=== PATIENT | male | born 1990 | race Caucasian/White ===

== ENCOUNTER 2024-03-28 17:18 | Emergency (ER) | payer MEDICAID, SELFPAY ==
[2024-03-28 17:23] VITALS: BP 123/74; PULSE 91; RESP 20; TEMP 37.2; O2SAT 99; BMI 27.4
--- NOTE | 2024-03-28 17:26 | CRLHL7_ITS ---
For Patients: As a result of the Cures Act, medical imaging exams and procedure reports are released immediately into your electronic medical record. You may view this report before your referring provider. If you have questions, please contact your health care provider. INDICATION: Right hand pain and injury COMPARISON: None. TECHNIQUE: Three radiographic view(s) of the right hand. FINDINGS: Acute mildly displaced fracture of the 4th metacarpal head and neck. Old healed fracture of the 3rd metacarpal shaft. No substantial degenerative change. IMPRESSION: Acute mildly displaced fracture of the 4th metacarpal head and neck. Old healed fracture of the 3rd metacarpal shaft. No substantial degenerative change. Dictated by Trevor Kent MD @ 03/28/2024 6:42:38 PM (Electronically Signed)
--- NOTE | 2024-03-28 17:29 | ED_ITS ---
HPI - General Adult General Chief complaint: Extremity Pain/Injury, Upper Stated complaint: pain in rt hand Time Seen by Provider: 03/28/24 17:28 History of Present Illness HPI narrative: Pt was upset today and began punching a cinder/brick wall about 30 mins ago. Struck approx 3 times before realizing extent of injury to Right hand. Right hand is swollen and bleeding. Pt stated multiple times in triage I'm not here seeking medications and just wants treatment of hand injury. 33-year-old man presenting to the emergency department with right hand pain after punching a wall multiple times. It was on the 3rd punch that he realized that he was being foolish. Does have a history of extensive drug use back in 2011, including I believe IV and volunteers number of times during initial interview that is not here for pain medication but just realized he needed the it checked out. He had become upset instead of punching somebody else he decided punched a wall. Apparently witnessing this happening his buddies suggested he was being immature and that he go be evaluated. Related Data Allergies Allergy/AdvReac Type Severity Reaction Status Date / Time Bleach (Sodium Hypochlorite) Allergy Unknown rash Verified 03/31/24 14:53 Review of Systems Status of ROS: Reports: 6 or more systems reviewed and unremarkable except as noted in History and below PFSH PFSH Social History Smoking Status: Current every day smoker What tobacco products do you use: cigarettes Do you use any of these nicotine containing products: Vaping Products How often do you have a drink containing alcohol: never AUDIT-C Alcohol total score: 0 Non-prescribed substance use: former substance user and marijuana (any form) Non-prescribed substance use details: 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 Long braden and numerous tattoos. Favoring his right hand. No other injuries clearly apparent. He has superficial cuts with dried blood over the distal dorsal hand of the 3rd through 5th fingers. No active bleeding at this time. He is tremulous with this hand in discomfort amplified by my palpation. Tender in same areas and appears to have a depression of the head of the 4th metacarpal. Able to move all fingers but clearly painful though reports numbness in his 4th finger but sensation distally Const: Vital Signs, click to edit/add: Vital Signs - 24 hr 03/28/24 17:23 Temperature 98.9 F Pulse Rate [Pulse Oximeter] 91 Respiratory Rate 20 Blood Pressure [Ri ght Upper Arm] 123/74 Pulse Oximetry 99 Oxygen Delivery Me thod Room Air Documenting provider has reviewed patient's vital signs: yes Course Vital Signs Vital signs: Initial Vital Signs Temperature 98.9 F 03/28/24 17:23 Temperature Source Temporal Artery Scan 03/28/24 17:23 Pulse Rate 91 03/28/24 17:23 Respiratory Rate 20 03/28/24 17:23 Blood Pressure 123/74 03/28/24 17:23 Blood Pressure Mean 90 03/28/24 17:23 Blood Pressure Position Sitting 03/28/24 17:23 Pulse Oximetry 99 03/28/24 17:23 Oxygen Delivery Method Room Air 03/28/24 17:23 Vital Signs Temperature 98.9 F 03/28/24 17:23 Pulse Rate 91 03/28/24 17:23 Respiratory Rate 20 03/28/24 17:23 Blood Pressure 123/74 03/28/24 17:23 Pulse Oximetry 99 03/28/24 17:23 Oxygen Delivery Method Room Air 03/28/24 17:23 Temperature 98.9 F 03/28/24 17:23 Pulse Rate 91 03/28/24 17:23 Respiratory Rate 20 03/28/24 17:23 Blood Pressure 123/74 03/28/24 17:23 Pulse Oximetry 99 03/28/24 17:23 Oxygen Delivery Method Room Air 03/28/24 17:23 Medications Administered Medications: Discontinued Medications Generic Name Dose Route Start Last Admin Trade Name Daltonq PRN Reason Stop Dose Admin Acetaminophen 1,000 mg 03/28/24 17:38 03/28/24 17:47 Acetaminophen 500 Mg Tablet PO 03/28/24 17:39 1,000 mg ONCE ONE Administration Ibuprofen 600 mg 03/28/24 17:38 03/28/24 17:47 Ibuprofen 200 Mg Tablet PO 03/28/24 17:39 600 mg ONCE ONE Administration Medical Decision Making MDM Narrative Medical decision making narrative: Lacerations that appear to need repair. I would presume that he has at least a head of 4th metacarpal fracture given depression in the area. X-rays pending. Ibuprofen and acetaminophen given. By my independent review confirming x-ray images of transverse fracture and palmar angulation almost 90? of head of 4th metacarpal. Returned to discuss this with Trevor. Pending call back from Orthopedics for further recommendations whether this might require pinning or whether we should attempt some reduction here. Discussed with orthopedic who would recommend some attempt at reduction anticipate follow-up in clinic for further recommendations. Likely will need pinning for stabilization. With nursing assistance injected bupivacaine through the webspace toward the joint anticipating reduction. Did also inject 1 mL from the dorsal surface in equivalent of a hematoma block. On reassessment excellent anesthesia was achieved. Return to reduce the distal fracture fragment/head of 4th metacarpal by upward pressure from the palmar side. Subsequently fashioned and placed an ulnar gutter splint Mr. Smith tolerated this extremely well. Post reduction x-rays by my independent review shows marked improvement in angulation. Radiology over-read below INDICATION: Post reduction 4th metacarpal fracture TECHNIQUE: Hand radiograph 2 views right COMPARISON: 03/28/2024 FINDINGS: Bone: The fracture of the distal 4th metacarpal has been reduced to anatomic alignment. Remote fracture deformity of the 3rd metacarpal is unchanged. Joint: The carpal and metacarpal-phalangeal joints are unremarkable in appearance. The interphalangeal joints are normal in appearance. Soft tissue: An overlying ulnar splint is noted which limits evaluation of the underlying osseous structures and soft tissues. No radiopaque foreign bodies are seen. IMPRESSION: 1. The fracture of the distal 4th metacarpal has been reduced to anatomic alignment. See patient discharge plan for further discussion Please call on Sunday for an appointment with Orthopedics likely to be seen later in the week. Phone number [phone]. Wear this splint until follow-up evaluation. Elevate for comfort. Sling if necessary. Can take up to 800 mg ibuprofen or up to 1000 mg of acetaminophen per dose. Medical Records Medical records reviewed: Yes I reviewed the patient's medical records Discharge Plan Discharge Clinical Impression: Fx metacarpal neck-closed Patient Disposition: Home w/ Parent or Adult Condition: Improved Additional Instructions: Please call on Sunday for an appointment with Orthopedics likely to be seen later in the week. Phone number [phone]. Wear this splint until follow-up evaluation. Elevate for comfort. Sling if necessary. Can take up to 800 mg ibuprofen or up to 1000 mg of acetaminophen per dose. Follow Up/Referrals: Provider,Not a Local [Primary Care Provider] - Stand Alone Forms: [employer] Info Instructions
[2024-03-28] MEDS: IBUPROFEN 200 MG TABLET 600 MG PO (17:47)
[2024-03-28] MEDS: ACETAMINOPHEN 500 MG TABLET 1000 MG PO (17:47)
--- NOTE | 2024-03-28 18:58 | CRLHL7_ITS ---
For Patients: As a result of the Century Cures Act, medical imaging exams and procedure reports are released immediately into your electronic medical record. You may view this report before your referring provider. If you have questions, please contact your health care provider. INDICATION: Post reduction 4th metacarpal fracture TECHNIQUE: Hand radiograph 2 views right COMPARISON: 03/28/2024 FINDINGS: Bone: The fracture of the distal 4th metacarpal has been reduced to anatomic alignment. Remote fracture deformity of the 3rd metacarpal is unchanged. Joint: The carpal and metacarpal-phalangeal joints are unremarkable in appearance. The interphalangeal joints are normal in appearance. Soft tissue: An overlying ulnar splint is noted which limits evaluation of the underlying osseous structures and soft tissues. No radiopaque foreign bodies are seen. IMPRESSION: 1. The fracture of the distal 4th metacarpal has been reduced to anatomic alignment. Dictated by Mario Way MD @ 03/28/2024 7:30:17 PM Dictated by: Mario Way MD @ 03/28/2024 19:30:19 (Electronically Signed)
== END 2024-03-28 19:16 | disposition home or self-care (01) ==
PROVIDERS: Emergency Provider Family Medicine
DX: S62.334A Displaced fracture of neck of fourth metacarpal bone, right hand, initial encounter for closed fracture (principal); W22.01XA Walked into wall, initial encounter
CPT/HCPCS: 26605; 73120; 73130; 99283; 99284; A9270

== ENCOUNTER 2024-03-31 14:24 | Outpatient (CLI) | payer MEDICAID, SELFPAY ==
--- OUTSIDE RECORDS SUMMARY | 2024-04-04 23:17 | XMS_ITS | Referral Summary ---
Author Organization [facility] Address [address] [place] [address] Care Team Providers Care Health Care Legal Assistant Name Role Phone Unavailable Primary Care Provider Unavailabl e Source Comments Patient records contain information from all sites at [facility]. For routine questions regarding patient records, call [phone] during business hours, M-F 8:00 AM - 5:00 PM Central Time. Record requests for emergency care only can be directed to [phone] at any time.[facility] Encounters Date Type Department Care Team Description [...]
--- OUTSIDE RECORDS SUMMARY | 2024-04-04 23:17 | XMS_ITS | Encounter Summary ---
Author Organization [facility] Address [address] [place] [address] Care Team Providers Care Television Production Assistant Name Role Phone Unavailable Primary Care [...]
--- OUTSIDE RECORDS SUMMARY | 2024-04-04 23:17 | XMS_ITS ---
Author Organization [facility] Address [address] [place] [address] Care Team Providers Care Calibration Checker Name Role Phone Unavailable Unavailable Unavailable Surgery Details Not on file Complications Check Surgery Details section. Procedure Estimated Blood Loss Check Surgery Details section. Procedure Findings Check Surgery Details section. Procedure Specimens Taken Check Surgery Details section.
--- OUTSIDE RECORDS SUMMARY | 2024-04-04 23:17 | XMS_ITS | Clinical Summary ---
Author Organization [facility] Address [address] [place] [address] Care Team Providers Care Head Scorer Name Role Phone Unavailable Primary Care Provider Unavailabl e Source Comments Patient records contain information from all sites at [facility]. For routine questions regarding patient records, call [phone] during business hours, M-F 8:00 AM - 5:00 PM Central Time. Record requests for emergency care only can be directed to [phone] at any time.[facility] Allergies No known active allergies Medications * [...] patient's age to complete this topic Insurance [facility]
== END 2024-03-31 14:25 | disposition home or self-care (01) ==
LOC: AMB 04-04 23:15
PROVIDERS: Visit Provider Emergency Medicine
DX: R45.851 Suicidal ideations (principal); F10.129 Alcohol abuse with intoxication, unspecified; F12.10 Cannabis abuse, uncomplicated
CPT/HCPCS: A0425; A0427

== ENCOUNTER 2024-03-31 14:36 | Emergency (ER) | payer MEDICAID, SELFPAY ==
[2024-03-31 14:42] VITALS: BP 116/69; PULSE 63; RESP 16; TEMP 36.9; O2SAT 96; BMI 27.4
--- NOTE | 2024-03-31 15:30 | ED.NURSE ---
[facility] telehealth in progress.
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
[2024-03-31 15:53] LABS: Appearance Urine Clear (Clear); Bilirubin Urine Negative (Negative); Blood Urine Negative (Negative); Color Urine Yellow (Yellow); Glucose Urine Negative (Negative); Ketones Urine Negative (Negative); Leukocyte Esterase Urine Negative (Negative); Nitrite Urine Negative (Negative); Protein Urine Negative (Negative); Urobilinogen Urine 0.2 (0.2-1.0); pH Urine 5.5 (5.0-8.5)
[2024-03-31 16:01] LABS: RBC Urine 0-2 (0-2); WBC Urine 0-2 (0-5)
[2024-03-31 16:03] LABS: Basophils Absolute Auto 0.05 K/uL (0.00-0.30); Basophils Percent Auto 0.5 % (0.0-3.0); Eosinophils Absolute Auto 0.27 K/uL (0.00-0.50); Eosinophils Percent Auto 2.5 % (0.0-7.0); Hematocrit 42.3 % (37.0-53.0); Hemoglobin* 14.7 gm/dL (13.5-17.5); Immature Granulocytes Abs Auto 0.02 K/uL (0.00-0.30); Immature Granulocytes Pct Auto 0.2 %; Mean Corpuscular HGB Conc 35 gm/dL (32-36); Mean Corpuscular Hemoglobin 31 pg (26-34); Mean Corpuscular Volume 90 fL (80-100); Monocytes Percent Auto 6.7 % (0.0-11.0); Neutrophils Absolute Auto 4.96 K/uL (1.7-7.0); Neutrophils Percent Auto 45.1 % (42.0-72.0); Platelet Count* 292 K/uL (140-440); RDW Coefficient of Variation % 12.6 % (11.5-15.5); Red Blood Count 4.71 m/uL (4.30-5.90); White Blood Count* 10.99 K/uL (4.50-11.00)
[2024-03-31 16:04] LABS: Amphetamine Screen Urine Negative (Negative); Barbiturate Screen Urine Negative (Negative); Benzodiazepines Screen Urine Negative (Negative); Cannabinoid Screen Urine POSITIVE (Negative); Cocaine Screen Urine Negative (Negative); Methadone Screen Urine Negative (Negative); Methamphetamines Screen Urine Negative (Negative); Opiate Screen Urine Negative (Negative); Oxycodone Screen Urine Negative (Negative); Phencyclidine Screen Urine Negative (Negative); Tricyclic Antidepressant Urine Negative (Negative)
[2024-03-31 16:07] LABS: Slide Review Reflex No
[2024-03-31 16:21] LABS: Chloride* 110 mmol/L (96-114); Potassium* 3.8 mmol/L (3.6-5.1); Sodium* 143 mmol/L (135-149)
[2024-03-31 16:23] LABS: Creatinine* 0.8 mg/dL (0.5-1.5); Est. Creatinine Clearance* 127.06; Estimated Glomerular Filt Rate 120 ml/min
[2024-03-31 16:24] LABS: Anion Gap 10 mEq/L (7-15); Blood Urea Nitrogen* 13 mg/dL (5-24); Calcium* 9.2 mg/dL (8.4-10.6); Carbon Dioxide* 23 mmol/L (20-32); Glucose* 98 mg/dL (60-115)
[2024-03-31 16:26] LABS: Acetaminophen* < 10.0 ug/mL (10.0-30.0); Ethanol* 0.16 % (0.01-0.03); Salicylate* < 0.1 mg/dL (1.0-10)
[2024-03-31 16:42] LABS: SARS PCR* Negative SARS-CoV-2 (Negative)
[2024-03-31 17:04] LABS: Thyroid Stimulating Hormone* 0.156 uIU/mL (0.270-4.20)
[2024-03-31] MEDS: OLANZapine 5 MG TAB.RAPDIS PO (19:35)
[2024-03-31 19:36] VITALS: BP 118/73; PULSE 83; RESP 16; TEMP 36.8; O2SAT 98
[2024-04-01 06:00] VITALS: BP 119/79; PULSE 49; RESP 16; O2SAT 97
--- NOTE | 2024-04-01 07:18 | ED.NURSE ---
Patient participating in virtual [facility] assessment.
[2024-04-01 12:54] LABS: Free T4 Free Thyroxine* 1.78 ng/dL (0.70-1.85)
[2024-04-01 13:48] VITALS: BP 118/73; PULSE 58; RESP 19; TEMP 36.9; O2SAT 97
--- NOTE | 2024-04-01 14:35 | ED.NURSE ---
Patient transferring via [facility] to [facility].
== END 2024-04-01 14:37 ==
PROVIDERS: Emergency Medicine; Emergency Provider Family Medicine
DX: F10.129 Alcohol abuse with intoxication, unspecified (principal)
CPT/HCPCS: 36415; 80048; 80143; 80179; 80306; 81001; 82077; 84439; 84443; 85025; 87635; 96372; 99284; 99285; A9270

== ENCOUNTER 2024-04-01 14:29 | Outpatient (CLI) | payer MEDICAID, SELFPAY ==
--- OUTSIDE RECORDS SUMMARY | 2024-04-02 09:39 | XMS_ITS | Referral Summary ---
Author Organization [facility] Address [address] [place] [address] Care Team Providers Care Tire Inspector Name Role Phone Unavailable Primary Care Provider Unavailabl e Source Comments Patient records contain information from all sites at [facility]. For routine questions regarding patient records, call [phone] during business hours, M-F 8:00 AM - 5:00 PM Central Time. Record requests for emergency care only can be directed to [phone] at any time.[facility] Encounters Date Type Department Care Team Description 04/01/2024 Intake [facility] from Last 3 Months Allergies No known active allergies Medications * This document contains information received from the source organization and may not represent a complete record from that organization. No known medications Social History Tobacco Use Types Packs/Day Years Used Date Smoking Tobacco: Never Assessed Nutrition Answer Date Recorded Nutrition: EVOO Fat Source Unknown 10/04 Nutrition: Servings of Fruits/Vegetables per Day Not on file 10/04/2022 Dental Answer Date Recorded Dental: Regular Dentist Unknown 10/05/19 23 Sex and Gender Information Value Date Recorded Sex Assigned at Male 10/11/2022 12:58 PM CDT Legal Sex Male 11:19 AM CDT Gender Identity Male 10/11/2022 12:58 PM CDT Sexual Orientation Straight 10/11/2022 12 :58 PM CDT Plan of Treatment Not on file Insurance [employer]
--- OUTSIDE RECORDS SUMMARY | 2024-04-02 09:39 | XMS_ITS | Clinical Summary ---
Author Organization [facility] Address [address] [place] [address] Care Team Providers Care Supervisor Vat House Name Role Phone Unavailable Primary Care Provider Unavailabl e Source Comments Patient records contain information from all sites at [facility]. For routine questions regarding patient records, call [phone] during business hours, M-F 8:00 AM - 5:00 PM Central Time. Record requests for emergency care only can be directed to [phone] at any time.[facility] Allergies No known active allergies Medications * This document contains information received from the source organization and may not represent a complete record from that organization. No known medications Encounters Date Type Department Care Team Description 04/01/2024 Intake [facility] from Last 3 Months Social History Tobacco Use Types Packs/Day Years Used Date Smoking Tobacco: Never Assessed Nutrition Answer Date Recorded Nutrition: EVOO Fat Source Unknown 10/04 Nutrition: Servings of Fruits/Vegetables per Day Not on file 10/04/2022 Dental Answer Date Recorded Dental: Regular Dentist Unknown 10/05/19 Sex and Gender Information Value Date Recorded Sex Assigned at Male 10/11/2022 12:58 PM CDT Legal Sex Male 11:19 AM CDT Gender Identity Male 10/11/2022 12:58 PM CDT Sexual Orientation Straight 10/11/2022 12 :58 PM CDT Plan of Treatment Health Maintenance Due Date Last Done Comments HIV Screening 1990 Hepatitis C Screening 1990 Depression Screening (Annual PHQ-2) 05/07/2023 HPV Vaccines (2 - 3-dose SCDM series) 06/19/2023 05/22/2023 COVID-19 Vaccine ( season) 2024 Influenza Vaccine (#1) 2024 03/22/2016 DTaP,Tdap,and Td Vaccines (8 - Td or Tdap) 05/22/2026 05/22/2016, 09/03/2007, 01/19/1995, Additional history exists IPV Vaccines Completed 01/19/1995, 02/05, 1990, Additional history exists Hepatitis B Vaccines Completed 09/03/2007, 07/27/1995, 01/19/1995 Pneumococcal vaccine (0-64 years) Aged Out 03/22/2016 No longer eligible based on patient's age to complete this topic Insurance [facility]
--- OUTSIDE RECORDS SUMMARY | 2024-04-02 09:39 | XMS_ITS | Encounter Summary ---
Author Organization [facility] Address [address] [place] [address] Care Team Providers Care Executive Assistant To General Counsel Name Role Phone Unavailable Primary Care Provider Unavailabl e Encounter Details Date Type Department Care Team (Latest Contact Info) Description 04/01/2024 Intake [facility] Social History Tobacco Use Types Packs/Day Years [...] Orientation Straight 10/11/2022 12 :58 PM CDT documented as of this encounter Plan of Treatment Not on file documented as of this encounter Visit Diagnoses Not on filedocumented in this encounter
--- OUTSIDE RECORDS SUMMARY | 2024-04-02 09:39 | XMS_ITS ---
Author Organization [facility] Address [address] [place] [address] Care Team Providers Care Dry Can Tender Name Role Phone Unavailable Unavailable Unavailable Surgery Details Not on file Complications Check Surgery Details section. Procedure Estimated Blood Loss Check Surgery Details section. Procedure Findings Check Surgery Details section. Procedure Specimens Taken Check Surgery Details section.
== END 2024-04-01 14:30 | disposition home or self-care (01) ==
LOC: AMB 04-02 09:38
PROVIDERS: Visit Provider Emergency Medicine
DX: F23 Brief psychotic disorder (principal)
CPT/HCPCS: A0425; A0427

== ENCOUNTER 2024-07-19 20:49 | Emergency (ER) | payer MEDICAID, SELFPAY ==
--- OUTSIDE RECORDS SUMMARY | 2024-07-19 20:52 | XMS_ITS | Clinical Summary ---
Author Organization [facility] Address [address] [place] [address] Care Team Providers Care Analytics Specialist Name Role Phone Unavailable Primary Care Provider Unavailabl e Source Comments You are receiving this document as you are listed as the primary care provider,follow-up provider, or the patient has been referred to you for consultation.This is in compliance with the Medicare andMedicaid EHR Incentive Program,which states Providers who transition their patient to another setting of careor provider of care or refers their patient to another provider of care shouldprovide summary care record for each transition of care or referral. [facility] Allergies Active Allergy Reactions Criticality Noted Date Comments Chlorine Rash 04/01/2024 Medications No known medications Active Problems Problem Noted Date Diagnosed Date Hand injury, right, sequela 04/02/2024 Schizoaffective disorder, bipolar type Social History Tobacco Use Types Packs/Day Years Used Date Smoking Tobacco: Never Assessed [facility] Utilities Answer Date Recorded In the past 12 months has [facility] [employer], gas, oil, or water [employer] threatened to shut off services in your home? Patient declined 04/02/2024 Humiliation, Afraid, Rape, and Kick questionnair e Answer Date Recorded Within the last year, have y ou been afraid of your partner or ex-partner? Patient declined 04/02/2024 Within the last year, have y ou been humiliated or emotionally abused in other ways by your partner or ex-partner? Patient declined 04/02/2024 Within the last year, have y ou been kicked, hit, slapped, or otherwise physically hurt by your partner or ex-partner? Patient declined 04/02/2024 Within the last year, have y ou been raped or forced to have any kind of sexual activity by your partner or ex-partner? Patient declined 04/02/2024 Hunger Vital Sign Answer Date Recorded Within the past 12 months, y ou worried that your food would run out before you got the money to buy more. Patient declined Within the past 12 months, t he food you bought just didn't last and you didn't have money to get more. Patient declined PRAPARE - Transportation Answer Date Re corded In the past 12 months, has l ack of transportation kept you from medical appointments or from getting medications? Patient declined 04/02/2024 In the past 12 months, has l ack of transportation kept you from meetings, work, or from getting things needed for daily living? Patient declined 04/02/2024 Housing Stability Vital Sign Answer Sajan e Recorded In the last 12 months, was t here a time when you were not able to pay the mortgage or rent on time? Patient declined 04/02/20 24 Number of Times Moved in the Last Year Not on fi le 04/02/2024 At any time in the past 12 m [facility], were you homeless or living in a assisted (including now)? Patient declined 04/02/2024 Sex and Gender Information Value Date Recorded Sex Assigned at Not on file Legal Sex Male 12:23 PM BROKE HANDLER Gender Identity Not on file Sexual Orientation Not on file Last Filed Vital Signs Vital Sign Reading Time Taken Comments Blood Pressure 134/64 04/15/2024 8:00 AM BROKE HANDLER Pulse 95 04/15/2024 8:00 AM BROKE HANDLER Temperature 36.5 C (97.7 F) 04/15/2024 8:00 AM BROKE HANDLER Respiratory Rate 18 04/15/2024 8:00 AM BROKE HANDLER Oxygen Saturation 100% 04/15/2024 8:00 AM BROKE HANDLER Inhaled Oxygen Concentration - - Weight 82.3 kg (181 lb 6.4 oz) 04/13/2024 8:00 A M BROKE HANDLER Height 172.7 cm (5' 8) 04/01/2024 5:05 PM BROKE HANDLER Body Mass Index 27.58 04/01/2024 5:05 PM BROKE HANDLER Plan of Treatment Health Maintenance Due Date Last Done Comments Hep C Screening (Preventive Services) 1990 HIV Screening (Preventive Services) 2006 Adult Preventive Visit 2008 HepB (1) 2009 HPV Vaccine (2 - 3-dose SCDM series) 06/19/2023 05/22/2023 COVID-19 Vaccine ( season) 2024 Influenza (#1) 2024 03/22/2016 DTaP/Tdap/Td (8 - Tdap) 05/22/2026 05/22/19 17, 09/03/2007, 01/19/1995, Additional history exists Zoster/Shingles (1 of 2) 2040 Hib Completed 03/02/1992, 05/07, 01/13/1991, Additional history exists IPV (Polio) Completed 01/19/1995, 02/05, 1990, Additional history exists MCV4 Completed 09/03/2007 Pneumococcal Aged Out 03/22/2016 No longer eligi ble based on patient's age to complete this topic HepA Aged Out 04/28/2016, 10/28/2015 No lo nger eligible based on patient's age to complete this topic Meningococcal B Aged Out No longer el igible based on patient's age to complete this topic Insurance [facility] Advance Directives * Full Code (Latest Code Status on File) Date Activated Date Inactivated Comments 04/01/2024 4:17 PM 04/15/2024 5:43 PM
--- OUTSIDE RECORDS SUMMARY | 2024-07-19 20:52 | XMS_ITS | Clinical Summary ---
Author Organization [facility] Address [facility] [place] [address] Care Team Providers Care Psychiatry Resident Name Role Phone Devon Thompson DO Primary Care Provider [phone] Devon Thompson DO Unavailable Anna Craig VOLLEYBALL PLAYER Unavailable [phone] Allergies Active Allergy Reactions Criticality Noted Date Comments Guanfacine Headache 12/15/2021 Sodium Hypochlorite Rash Low 12/15/2021 Medications divalproex sodium extended-releas e (DEPAKOTE ER) 500 MG 24 hr tabletIndicatio ns:Schizoaffect colt disorder, bipolar type (H) Take 4 tablets (2,000 mg) by mouth at bedtime for 30 days 120 tablet 10/18/2023 Active Active Problems Problem Noted Date Diagnosed Date Acute psychosis 10/08/2023 Noemi 04/27/2023 Insomnia due to other mental disorder 04/27/2023 Schizoaffective disorder, bipolar type 2 Hallucinations 12/14/2021 Paranoia 12/14/2021 Generalized anxiety disorder 12/25/2017 Immunizations Name Administration Dates Next Due DTAP (<7y) 01/19/1995, 2,01/13/1991,11/14,1990 HIB(PRP-OMP)(PedvaxHIB) 03/02/1992,05/19,01/13/1991,11/14 HPV9 05/22/2023 Hepatitis A (VAQTA)(ADULT 19+) 04/28/2016,2015 Hepatitis B, Peds (Engerix-B/Recombivax HB) 09/03/2007,07/27/1995,01/19/1995 Historical DTP/aP 01/13/1991,1990,08/14/18 91 Influenza Vaccine >6 months,quad, PF 03/22/2016 MMR (MMRII) 01/19/1995,03/02/1992 Meningococcal ACWY (Menactra ) 09/03/2007 OPV, trivalent, live 01/19/1995,03/02/19 92,1990,08/14 Pneumococcal 23 valent 03/22/2016 TDAP (Adacel,Boostrix) 09/03/2007 TDAP Vaccine (Adacel) 05/22/2016 Varicella (Varivax) 07/27/1995 Family History Relation Status Comments Father Alive Mother Social History Tobacco Use Types Packs/Day Years Used Date Smoking Tobacco: Some Days Cigars Vaping Device Smokeless Tobacco: Former Chew Tobacco Cessation:Ready to Q uit: Not Asked; Counseling Given: Not Answered Comments:Quit cigs a couple years ago, was 1 ppd x4-5 yrs, now vaping Passive Exposure Comments:loon max vape Alcohol Use Standard Drinks/Week Comments No 0 (1 standard drink = 0.6 oz pur e alcohol) PHQ-2 Answer Date Recorded PHQ-2 Score 0 02/15/2022 Adolescent Education Answer Date Record ed Getting School Help Needed Not on file 01/26 Food Insecurity Answer Date Recorded Within the past 12 months, d id you worry that your food would run out before you got money to buy more? No 05/22/2023 Within the past 12 months, d id the food you bought just not last and you didn t have money to get more? No 05/22/2023 Housing Stability Answer Date Recorded Do you have housing? (Housin g is defined as stable permanent housing and does not include staying ouside in a car, in a tent, in an abandoned building, in an overnight assisted, or couch-surfing.) No 05/22/2023 Are you worried about losing your housing? No 05/22/2023 Financial Resource Strain Answer Date R ecorded Within the past 12 months, h ave you or your family members you live with been unable to get utilities (heat, electricity) when it was really needed? No 05/22/2023 Transportation Needs Answer Date Record ed Within the past 12 months, h as lack of transportation kept you from medical appointments, getting your medicines, non-medical meetings or appointments, work, or from getting things that you need? No 05/22/2023 Interpersonal Safety Answer Date Record ed Do you feel physically and e motionally safe where you currently live? Yes 05/22/2023 Within the past 12 months, h ave you been hit, slapped, kicked or otherwise physically hurt by someone? No 05/22/2023 Within the past 12 months, h ave you been humiliated or emotionally abused in other ways by your partner or ex-partner? 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 Gender Identity Not on file Sexual Orientation Not on file Last Filed Vital Signs Vital Sign Reading Time Taken Comments Blood Pressure 117/66 10/18/2023 6:00 AM CDT Pulse 68 10/18/2023 6:00 AM CDT Temperature 36.3 C (97.3 F) 10/18/2023 6:00 AM CDT Respiratory Rate 16 10/18/2023 6:00 AM CDT Oxygen Saturation 97% 10/18/2023 6:00 AM CDT Inhaled Oxygen Concentration - - Weight 80.1 kg (176 lb 8 oz) 10/13/2023 7:00 AM CDT Height 172.7 cm (5' 8) 10/08/2023 3:56 AM CDT Body Mass Index 26.84 10/08/2023 3:56 AM CDT Plan of Treatment Health Maintenance Due Date Last Done Comments ADVANCE CARE PLANNING 1990 ANNUAL REVIEW OF HM ORDERS 1990 YEARLY PREVENTIVE VISIT 1993 Pneumococcal Vaccine: Pediat rics (0 to 5 Years) and At-Risk Patients (6 to 49 Years) (2 of 2 - PCV) 03/22/2017 03/22/2016 HPV IMMUNIZATION (2 - 3-dose SCDM series) 06/19/2023 05/22/2023 COVID-19 Vaccine ( - 2023-2 5 season) 2024 INFLUENZA VACCINE (#1) 2024 03/22/2016 PHQ-2 (once per calendar year) 2024 1 , 02/15/2022, 10/11/2016 NICOTINE/TOBACCO CESSATION COUNSELING Q 1 YR 05/22/2024 05/22/2023 DTAP/TDAP/TD IMMUNIZATION (8 - Td or Tdap) 05/22/2026 05/22/2016, 09/03/2007, 01/19/1995, Additional history exists ZOSTER IMMUNIZATION (1 of 2) 2040 HEPATITIS B IMMUNIZATION Completed 008, 07/27/1995, 01/19/1995 MENINGITIS IMMUNIZATION Completed 09/03/2007 HEPATITIS C SCREENING Completed 10/14/2023 , 10/14/2023, 03/05/2018, Additional history exists HIV SCREENING Completed 10/14/2023, 02/06, 03/05/2018 Procedures Procedure Name Priority Date/Time Associated Diagnosis Comments HIV ANTIGEN ANTIBODY COMBO Routine 10/14/2023 10:42 AM CDT HEPATITIS C SCREEN REFLEX TO HCV RNA QUANT AND GENOTYPE Routine 10/14/2023 10:42 AM CDT from Last 3 Months or Most Recently Relevant to Health Maintenance Results * HIV Antigen Antibody Combo Oliver (10/14/2023 10:42 AM CDT) HIV Antigen Antibody Combo Nonreactive Nonreactive 10/14/2023 6:53 PM CDT [facility] Comment:Negative HIV-1 p24 a ntigen and HIV-1/2 antibody screening test results usually indicate the absence of HIV-1 and HIV-2 infection. However, such negative results do not rule-out acute HIV infection. If acute HIV-1 or HIV-2 infection is suspected, detection of HIV-1 or HIV-2 RNA is recommended. Blood STRUCTURE OF LEFT UPPER LIMB / Unknown Venipuncture / Unknown 10/14/2023 10:42 AM CDT 10/14/2023 10:46 AM CDT us Keren Holloway CNP LAB - BLOOD ORDERABLES Final Re sult [facility] [address] [facility], [address] [id number] * (ABNORMAL) Hepatitis C Screen Reflex to HCV RNA Quant and Genotype (10/14/2023 10:42 AM CDT) Hepatitis C Antibody Reactive( A) Nonreactive 10/14/2023 6:49 PM CDT [facility] Comment: The detection of anti-HCV antibodies indicates a current HCV infection or past infection that has resolved, or false HCV antibody positivity. The CDC recommends that a reactive result should be followed by Nucleic acid testing for HCV RNA. If HCV RNA is detected, that indicates current HCV infection. If HCV RNA is not detected, that indicates either past, resolved HCV infection, or false HCV antibody positivity. Blood STRUCTURE OF LEFT UPPER LIMB / Unknown Venipuncture / Unknown 10/14/2023 10:42 AM CDT 10/14/2023 10:46 AM CDT Keren Holloway [facility] LAB - BLOOD ORDERABLES Final Re sult [facility]ATORY [facility] [address] [facility], [address] [id number] from Last 3 Months or Most Recently Relevant to Health Maintenance Insurance [facility] [place] [address] [facility] PM[facility] Advance Directives For more information, please contact: [phone] * Full Code (Latest Code Status on File) Date Activated Date Inactivated Comments 10/08/2023 3:58 AM 10/18/2023 2:40 PM All basic and advanced life-sustaining interventions are performed as appropriate Question Answer Comments Code status determined by: Discussion with patie nt/ legal decision maker * Full Code Date Activated Date Inactivated Comments 05/01/2023 10:10 AM 05/15/2023 12:03 PM All basic and advanced life-sustaining interventions are performed as appropriate Question Answer Comments Code status determined by: Discussion with patie nt/ legal decision maker * Full Code Date Activated Date Inactivated Comments 04/27/2023 5:50 PM 05/01/2023 10:09 AM All basic and advanced life-sustaining interventions are performed as appropriate Question Answer Comments Code status determined by: Unable to det ermine; FULL CODE until documents or legal decision maker available * Full Code Date Activated Date Inactivated Comments 12/15/2021 12:39 AM 12/27/2021 4:07 PM All basic a nd advanced life-sustaining interventions are performed as appropriate Question Answer Comments Code status determined by: Other (please documen t) Care Teams Psychiatry Resident Relationship Specialty Start Date End Date Devon Thompson DO [address] [id number] PCP - General Family Medicine 02/16/22 Devon Thompson DO [address] [id number] Assigned PCP 02/18/22 Anna Craig CNP [address] [id number] Assigned Heart and Vascular Provider 05/31/23
--- OUTSIDE RECORDS SUMMARY | 2024-07-19 20:52 | XMS_ITS | Clinical Summary ---
Author Organization [facility] Address [address] [place] [address] Care Team Providers Care Nurse'S Companion Name Role Phone Unavailable Primary Care Provider Unavailabl e Source Comments Patient records contain information from all sites at [facility]. For routine questions regarding patient records, call [phone] during business hours, M-F 8:00 AM - 5:00 PM Central Time. Record requests for emergency care only can be directed to [phone] at any time.[facility] Allergies No known active allergies Medications [...] HIV Screening 1990 Hepatitis C Screening 1990 HPV Vaccines (2 - 3-dose SCDM series) 06/19/2023 05/22/2023 COVID-19 Vaccine ( season) 2024 Influenza Vaccine (#1) 2024 03/22/2016 Depression Screening (Annual PHQ-2) 05/07/2024 DTaP,Tdap,and Td Vaccines (8 - Td or Tdap) 05/22/2026 05/22/2016, 09/03/2007, 01/19/1995, Additional history exists IPV Vaccines Completed 01/19/1995, 02/05, 1990, Additional history exists Hepatitis B Vaccines Completed 09/03/2007, 07/27/1995, 01/19/1995 Pneumococcal vaccine (0-49 years) Aged Out 03/22/2016 No longer eligible based on patient's age to complete this topic Hepatitis B Screening Discontinued 03/05/2018 Insurance [facility]
--- OUTSIDE RECORDS SUMMARY | 2024-07-19 20:52 | XMS_ITS | Encounter Summary ---
Author Organization [facility] Address [address] [place] [address] Care Team Providers Care Motor Vehicle Clerk Name Role Phone Fidel Trivedi DO Unavailable + [phone] Fidel Trivedi DO Unavailable [phone] No Ref-Primary, Physician Primary Care Provider Devon Thompson DO Primary Care Provider [phone] Devon Thompson DO Unavailable Anna Craig SPINNING MACHINE TENDER Unavailable [phone] Encounter Details Date Type Department Care Team (Late st Contact Info) Description 01/29/[address] [place] [id number] John Alexis MD [address] [place] [address] Social History Tobacco Use Types Packs/Day Years Used Date Smoking Tobacco: Never Assessed Sex and Gender Information Value Date Recorded Sex Assigned at Not on file Legal Sex Male 1:21 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 Gender Identity Not on file Sexual Orientation Not on file documented as of this encounter Plan of Treatment Not on file documented as of this encounter Visit Diagnoses Not on filedocumented in this encounter Care Teams Motor Vehicle Clerk Relationship Specialty Start Date End Date Fidel Trivedi DO [address] [facility] [address] [id number] PCP - Assigned PCP 09/21/16 07/09/18 No Ref-Primary, Physician PCP - General 12/14/21 02/15/22 Devon Thompson DO [address] [address] PCP - General Family Medicine 02/16/22 Fidel Trivedi DO [address] [facility] [address] [address] Assigned PCP 09/21/16 10/18/19 Devon Thompson DO [address] [id number] Assigned PCP 02/18/22 Anna Craig CNP [address] [id number] Assigned Heart and Vascular Provider 05/31/23 documented as of this encounter
--- OUTSIDE RECORDS SUMMARY | 2024-07-19 20:52 | XMS_ITS | Encounter Summary ---
Author Organization [facility] Address [address] [place] [address] Care Team Providers Care Flask Fitter Name Role Phone Unavailable Primary Care Provider [...]
[2024-07-19 21:02] VITALS: BP 170/90; PULSE 83; RESP 18; TEMP 36.1; O2SAT 96; BMI 29.1
--- NOTE | 2024-07-19 22:32 | ED_ITS ---
HPI - Back Pain/Injury General Time Seen by Provider: 22:32 Date Seen: 07/19/24 Chief Complaint: Back Injury/Pain Stated Complaint: Left middle back Time Seen by Provider: 07/19/24 22:31 Source: patient and RN notes reviewed Mode of arrival: ambulatory Limitations: no limitations History of Present Illness HPI Narrative: This 34-year-old male is coming in with left sided lower thoracic back pain that has been bothering him for about 3 weeks. He has tried ibuprofen, he has tried different patches and creams that her nlol-vjo-wmnxavj. He is physically active, does go to the gym and swims, plays handball. He is active with his kids. 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 He is unaware of any injury. 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 He has not had any back pain in this area before. Occasionally he will note pain in the left back in the area with deep breathing. No fevers chills, no cough. He states he has had people trying massaged tried pressure, nothing has made it worse but nothing has really helped. He has not done any chiropractic work. Related Data Allergies Allergy/AdvReac Type Severity Reaction Status Date / Time Bleach (Sodium Hypochlorite) Allergy Unknown rash Verified 03/31/24 14:53 Review of Systems Narrative: As per HPI. 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 He is lying on the bed, gets up easily and stands up on the bed, is able to point to his left lower thoracic area along the spine where he feels this pain. He has no midline tenderness over his spine, there is some generalized discomfort but no true point tenderness in the left lower thoracic paraspinous area. I feel no palpable changes such as a mass or any changes over the ribs in this area. There is no rash noted. The lungs are clear, good air entry, no wheezing or crackles. CV regular rate and rhythm, no murmur, normal S1-S2, no S3-S4. He has good muscle tone of his pectoralis and arms, neurovascular is intact. Documenting provider has reviewed patient's vital signs: yes Course Course ED Course: Patient and I discussed obtaining chest x-ray just to rule out any lung parenchyma issues, can look at thoracic spine x-rays. He understands that we do not do emergent MRI imaging nor can we at this time for issues of this nature. We discussed that this will look at the bones but does not necessarily look at ligaments or cartilage. He wanted to know if we would see cartilage on x-ray imaging. Did review with him that we do not see cartilage but you can estimate or have an idea if there is degenerative changes by loss of intervertebral disc space if seen. He is in agreement with this plan. Will look at this imaging and see if I can help come up with some recommendations for him. Reevaluation(s) Time of Reevaluation #1: 00:40 Reevaluation #1: Betty in I reviewed his x-rays, did show him pictures. Have offered Toradol and muscle relaxant, he declines this. He states he really wants to try to do this without medication and naturally. We did discuss chiropractor, he could consider that. Offered him a referral to physical therapy but he states he is going to be busy, it will likely be difficult for him to do. He will be leaving in August. He will consider it if symptoms continue and look into it once he is stationed at his next employment. He admitted that he actually quit his medical marijuana because his new job would not allow it, he notes that is when this symptoms started. We discussed exercise is very important for are musculoskeletal health. He is going to continue to try that. Also reviewed trying ice. Vital Signs Vital signs: Initial Vital Signs Temperature 97.0 F L 07/19/24 21:02 Temperature Source Temporal Artery Scan 07/19/24 21:02 Pulse Rate 83 07/19/24 21:02 Pulse Rhythm Regular 07/19/24 21:02 Respiratory Rate 18 07/19/24 21:02 Blood Pressure 170/90 H 07/19/24 21:02 Blood Pressure Mean 116 H 07/19/24 21:02 Blood Pressure Position Sitting 07/19/24 21:02 Pulse Oximetry 96 07/19/24 21:02 Oxygen Delivery Method Room Air 07/19/24 21:02 Vital Signs Temperature 97.0 F L 07/19/24 21:02 Pulse Rate 83 07/19/24 21:02 Respiratory Rate 18 07/19/24 21:02 Blood Pressure 170/90 H 07/19/24 21:02 Pulse Oximetry 96 07/19/24 21:02 Oxygen Delivery Method Room Air 07/19/24 21:02 Temperature 97.0 F L 07/19/24 21:02 Pulse Rate 83 07/19/24 21:02 Respiratory Rate 18 07/19/24 21:02 Blood Pressure 170/90 H 07/19/24 21:02 Pulse Oximetry 96 07/19/24 21:02 Oxygen Delivery Method Room Air 07/19/24 21:02 MDM - Back Pain/Injury Imaging Data Chest x-ray: Attestation: I have reviewed the pertinent imaging results. Radiologist's impression: Patient: BETTY SINGER Facility:?[facility] Patient ID:?[id number] Site Patient ID:?[id number]. Site :?1990 Study:?XRay-Chest 2V-07/19/2024 11:51:46 PM Ordering Physician:?Zay Slaughter Final Report: INDICATION: Chest pain. TECHNIQUE: Chest 2 views. COMPARISON: None. FINDINGS: Cardiovascular and mediastinum: Heart size and vasculature are normal in caliber and appearance. Lungs and pleural spaces: Lungs are clear. No sign of infiltrate or mass. No sign of pleural effusion. No pneumothorax. Bones and soft tissues: No significant findings. IMPRESSION: No acute cardiopulmonary abnormality. Dictated by Noah Acuña MD @ 07/20/2024 12:33:22 AM (Electronic Signature) XR thoracic spine: Attestation: I have reviewed the pertinent imaging results. Radiologist's impression: Patient: BETTY SINGER Facility:?[facility] Patient ID:?[id number] Site Patient ID:?[id number]. Site :?1990 Study:?XRay-Spine Thoracic 2V-07/19/2024 11:52:01 PM Ordering Physician:?Zay Slaughter Final Report: INDICATION: Back pain. TECHNIQUE: Thoracic spine 2 views. COMPARISON: None. FINDINGS: Bones: Alignment is normal. Vertebral body heights are maintained. No acute displaced fracture. Joints: Disc spaces and facets are unremarkable. Soft tissues: Unremarkable. IMPRESSION: Unremarkable thoracic spine. Dictated by Noah Acuña MD @ 07/20/2024 12:33:57 AM (Electronic Signature) Discharge Plan Discharge Clinical Impression: Acute left-sided thoracic back pain Patient Disposition: Home, Self-Care Condition: Stable Instructions: Thoracic Pain (ED), Core Strengthening Exercises (ED) Additional Instructions: Certainly can try Tylenol 1000 mg 3 times a day and ibuprofen per bottle directions as needed for pain control. Recommend trying ice on this area of your back and see if it helps. Can consider physical therapy, chiropractic evaluation. Do recommend doing back exercises and core strengthening. If your symptoms are not improving, feel they are worsening, do recommend re-evaluation in certainly would recommend following through with physical therapy. Activity Level: Activity as Tolerated Follow Up/Referrals: Provider,Not a Local [Primary Care Provider] - Stand Alone Forms: [email or web address] Info Instructions
--- NOTE | 2024-07-19 22:46 | CRLHL7_ITS ---
For Patients: As a result of the Century Cures Act, medical imaging exams and procedure reports are released immediately into your electronic medical record. You may view this report before your referring provider. If you have questions, please contact your health care provider. INDICATION: Chest pain. TECHNIQUE: Chest 2 views. COMPARISON: None. FINDINGS: Cardiovascular and mediastinum: Heart size and vasculature are normal in caliber and appearance. Lungs and pleural spaces: Lungs are clear. No sign of infiltrate or mass. No sign of pleural effusion. No pneumothorax. Bones and soft tissues: No significant findings. IMPRESSION: No acute cardiopulmonary abnormality. Dictated by Noah Acuña MD @ 07/20/2024 12:33:22 AM (Electronically Signed)
--- NOTE | 2024-07-19 22:46 | CRLHL7_ITS ---
For Patients: As a result of the Century Cures Act, medical imaging exams and procedure reports are released immediately into your electronic medical record. You may view this report before your referring provider. If you have questions, please contact your health care provider. INDICATION: Back pain. TECHNIQUE: Thoracic spine 2 views. COMPARISON: None. FINDINGS: Bones: Alignment is normal. Vertebral body heights are maintained. No acute displaced fracture. Joints: Disc spaces and facets are unremarkable. Soft tissues: Unremarkable. IMPRESSION: Unremarkable thoracic spine. Dictated by Noah Acuña MD @ 07/20/2024 12:33:57 AM (Electronically Signed)
--- OUTSIDE RECORDS SUMMARY | 2024-07-19 23:15 | XMS_ITS | Clinical Summary ---
Author Organization [facility] Address [address] [place] [address] Care Team Providers Care Doweling Machine Operator Name Role Phone Unavailable Primary Care Provider Unavailabl e Source Comments Patient records contain information from all sites at [facility]. For routine questions regarding patient records, call [phone] during business hours, M-F 8:00 AM - 5:00 PM Central Time. Record requests for emergency care only can be directed to [phone] at any time.[facility] Allergies No known active allergies Medications * [...] topic Hepatitis B Screening Discontinued 03/05/2018 Insurance [facility]
--- OUTSIDE RECORDS SUMMARY | 2024-07-19 23:15 | XMS_ITS | Encounter Summary ---
Author Organization [facility] Address [address] [place] [address] Care Team Providers Care Opener Verifier Packer Customs Name Role Phone Unavailable Primary Care Provider [...]
--- OUTSIDE RECORDS SUMMARY | 2024-07-19 23:15 | XMS_ITS | Clinical Summary ---
Author Organization [facility] Address [address] [place] [address] Care Team Providers Care Military Administrative Technician Name Role Phone Unavailable Primary Care Provider [...] for each transition of care or referral. [facility] Allergies Active Allergy Reactions Criticality Noted Date Comments Chlorine Rash 04/01/2024 Medications No known medications Active Problems Problem Noted Date Diagnosed Date Hand injury, right, sequela 04/02/2024 Schizoaffective disorder, bipolar type Social History Tobacco Use Types Packs/Day Years Used Date Smoking Tobacco: Never Assessed [facility] Utilities Answer Date Recorded In the past [address] [facility] [employer], gas, oil, or water [employer] threatened to shut off services in your [...] any time in the past 12 m [facility], were you homeless or living in a alf (including now)? 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 Gender Identity Not on file Sexual Orientation Not on file Last Filed Vital Signs Vital Sign Reading Time Taken Comments Blood Pressure 134/64 04/15/2024 8:00 AM HAIRPIECE STYLIST Pulse 95 04/15/2024 8:00 AM HAIRPIECE STYLIST Temperature 36.5 C (97.7 F) 04/15/2024 8:00 AM HAIRPIECE STYLIST Respiratory Rate 18 04/15/2024 8:00 AM HAIRPIECE STYLIST Oxygen Saturation 100% 04/15/2024 8:00 AM HAIRPIECE STYLIST Inhaled Oxygen Concentration - - Weight 82.3 kg (181 lb 6.4 oz) 04/13/2024 8:00 A M HAIRPIECE STYLIST Height 172.7 cm (5' 8) 04/01/2024 5:05 PM HAIRPIECE STYLIST Body Mass Index 27.58 04/01/2024 5:05 PM HAIRPIECE STYLIST Plan of Treatment Health Maintenance Due Date [...] patient's age to complete this topic Insurance [facility] Advance Directives * Full Code (Latest Code Status on File) Date Activated Date Inactivated Comments 04/01/2024 4:17 PM 04/15/2024 5:43 PM
--- OUTSIDE RECORDS SUMMARY | 2024-07-19 23:15 | XMS_ITS | Clinical Summary ---
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 Gender Identity Not on file Sexual Orientation [...] Maintenance Results * HIV Antigen Antibody Combo Esmeralda (10/14/2023 10:42 AM CDT) HIV Antigen Antibody [...] BLOOD ORDERABLES Final Re sult [facility] [address] [facility], [address] [id number] * (ABNORMAL) Hepatitis C Screen Reflex to [...] CDT 10/14/2023 10:46 AM CDT Keren Holloway [facility] - BLOOD ORDERABLES Final Re sult [facility] [address] [facility], [address] [id number] from Last 3 Months or Most Recently Relevant to Health Maintenance Insurance [facility] [place] [address] [employer] [facility] PMAP Advance Directives For more information, please contact: [phone] * Full Code (Latest Code Status on [...] by: Other (please documen t) Care Teams Blocking Machine Operator Second Relationship Specialty Start Date End Date Devon Thompson DO [address] [id number] PCP - General Family Medicine 02/16/22 Devon Thompson DO [address] [id number] Assigned PCP 02/18/22 Anna Craig CNP [address] [id number] Assigned Heart and Vascular Provider 05/31/23
--- OUTSIDE RECORDS SUMMARY | 2024-07-19 23:15 | XMS_ITS | Encounter Summary ---
Author Organization [facility] Address [address] [place] [address] Care Team Providers Care Lead Rider Name Role Phone Fidel Trivedi DO Unavailable + [phone] Fidel Trivedi DO Unavailable [phone] No Ref-Primary, Physician Primary Care Provider Devon Thompson DO Primary Care Provider [phone] Devon Thompson DO Unavailable Anna Craig PUNCHBOARD INSERTER Unavailable [phone] Encounter Details Date Type Department Care Team (Late st Contact Info) Description 01/29/[address] [place] [id number] John Alexis MD [address] [place] [address] Social History Tobacco Use Types Packs/Day Years Used Date Smoking Tobacco: Never Assessed Sex and Gender Information Value Date Recorded Sex Assigned at Not on file Legal Sex Male 1:21 AM 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 TEMPERER Gender Identity Not on file Sexual Orientation Not on file documented as of this encounter Plan of Treatment Not on file documented as of this encounter Visit Diagnoses Not on filedocumented in this encounter Care Teams Lead Rider Relationship Specialty Start Date End Date Fidel Trivedi DO [address] [facility] [address] [id number] PCP - Assigned PCP 09/21/16 07/09/18 No Ref-Primary, Physician PCP - General 12/14/21 02/15/22 Devon Thompson DO [address] [id number] PCP - General Family Medicine 02/16/22 Fidel Trivedi DO [address] [facility] [place] [place] [address] Assigned PCP 09/21/16 10/18/19 Devon Thompson DO [address] [id number] Assigned PCP 02/18/22 Anna Craig CNP [address] [id number] Assigned Heart and Vascular Provider 05/31/23 documented as of this encounter
== END 2024-07-20 00:51 | disposition home or self-care (01) ==
PROVIDERS: Emergency Provider Family Medicine
DX: M54.6 Pain in thoracic spine (principal)
CPT/HCPCS: 71046; 72070; 99283; 99284

== ENCOUNTER 2025-05-06 20:11 | Emergency (ER) | payer MEDICAID, SELFPAY ==
--- OUTSIDE RECORDS SUMMARY | 2025-04-01 17:00 | XMS_ITS | Encounter Summary ---
Author Organization [facility] Address [address] [address] Phone Care Team Providers Care Cotton Picker Name Role Phone Elsewhere, Pcp Primary Care Provider Unavailabl e Reason for Visit * ReasonCommentsOtherPt reporting L chest pain @ rest, SOB, feeling his blood is not circulating properly. Reports feeling like this previously.Started about 45 min ago while walking. Has a history of cardiac issues. Missed appointment this morning Encounter Details DateTypeDepartmentCare Team (Latest Contact Info)Svadllxscdd88/26/2025 5:[address] [facility] [address] [place] [address] Olivia Blum PA-C [address] [place] [address] Chest pain, unspecified type (Primary Dx) Social History Tobacco UseTypesPacks/DayYears UsedDateSmoking Tobacco: Every DayCigarettes Smokeless Tobacco: Never Tobacco Cessation:Ready to Q uit: Not Asked; Counseling Given: Not Answered Alcohol UseStandard Drinks/WeekCommentsYes0 (1 standard drink = 0.6 oz pure alcohol)occasionalAUDIT-CAnswerDate RecordedQ1: How often do you have a drink containing alcohol?Monthly or less04/03/2025Q2: How many drinks containing alcohol do you have on a typical day when you are drinking?1 or Q3: How often do you have six or more drinks on one occasion?Less than monthly 04/03/2025Hunger Vital SignAnswerDate RecordedWithin the past 12 months, you worried that your food would run out before you got the money to buymore.Often true04/03/2025Within the past 12 months, the food you bought just didn't last and you didn't have money to get more.Often true04/03/2025PRAPARE - TransportationAnswerDate RecordedIn the past 12 months, has lack of transportation kept you from medical appointments or from getting medications? Yes04/03/2025In the past 12 months, has lack of transportation kept you from meetings, work, or from getting things needed for daily living?Yes04/03/2025 Housing Stability Vital SignAnswerDate RecordedIn the last 12 months, was there a time when you were not able to pay the mortgage or rent on time?No04/03/2025In the past 12 months, how many times have you moved where you were living?5 04/03/2025t any time in the past 12 months, were you homeless or living in a nursing home (including now)?Yes04/03/2025HC UtilitiesAnswerDate RecordedIn the past 12 months has the electric, gas, oil, or water [employer] threatened to shut off services in your home?No04/03/2025EH IP Custom IPVAnswerDate RecordedDo you feel UNSAFE in any of your personal relationships with your family members or any other acquaintances?Yes04/03/2025Sex and Gender InformationValueDate RecordedSex Assigned at LmrfhFatn67/27/2022 10:07 PM CDTLegal PfbKnlh4506/16/2012 2:00 AM PEDIATRIC DERMATOLOGIST Gender MsywtjwmQnda13/27/2022 10:07 PM CDTSexual KxurbyklzftWjkonluj70/14/2025 4:12 PM CSTdocumented as of this encounter Last Filed Vital Signs Vital SignReadingTime TakenCommentsBlood Vrfrvrfp030/7304/01/2025 5:35 PM PEDIATRIC DERMATOLOGIST Dptcd139104/01/2025 5:35 PM VRZNjlxglezroo71.1 ??C (98.7 ??F)04/01/2025 5:08 PM CSTRespiratory Qadm9876 5:35 PM CSTOxygen Gfvsfaoqbi33%04/01/2025 5:35 PM CSTInhaled Oxygen Concentration--Weight--Height--Body Mass Index--documented in this encounter Functional Status * Patient's Vision Adequate to Safely Complete Daily ActivitiesAnswerDate of HiqpmtpfbjJajunxSux46/11/2025 1:15 PM Angelina Naidu RN * Patient's Memory Adequate to Safely Complete Daily ActivitiesAnswerDate of RsbragtogeLemdlsHjk58/11/2025 1:15 PM Angelina Naidu RN documented as of this encounter Mental Status * Patient's Judgment Adequate to Safely Complete Daily ActivitiesAnswerEntry VzvhKhlqpmQrt33/11/2025 1:15 PM Angelina Naidu RN documented in this encounter Plan of Treatment Not on file documented as of this encounter Procedures Procedure NamePriorityDate/TimeAssociated DiagnosisCommentsECG 12 LEAD, TRACING ULMLTbxrgzq16/26/2025 6:09 PM PEDIATRIC DERMATOLOGIST Chest pain, unspecified type documented in this encounter Results * EKG AMBULATORY (04/01/2025 6:09 PM PEDIATRIC DERMATOLOGIST)ComponentValueRef RangeTest Method Analysis TimePerformed AtPathologist SignatureVentricular Gvvn547KJWKFMZArrmgz Tept461XGPQIGZS-V Vmjawdcn298zvLCWZUXU Xdwltbqe32ltHUBJYK900qlBBSXJOv565nmROWU P Qfsk81ezlmkpcHYYLL Boom72vpcouzpEYRFI Ldjr17foqhbpbSPXMPfphiblh (Source) Anatomical Location / LateralityCollection Method / VolumeCollection Time Received Time04/01/2025 6:09 PM PEDIATRIC DERMATOLOGIST Narrative MUSE - 04/01/2025 8:37 PM PEDIATRIC DERMATOLOGIST Confirming Doc Gareth Carrion Sinus tachycardia Right atrial enlargement Prolonged QT Abnormal ECG When compared with ECG of 17-Mar-2025 02:28, No significant change was found Procedure Note Gareth Carrion MD - 04/01/2025 Confirming Doc Gareth Carrion Sinus tachycardia Right atrial enlargement Prolonged QT Abnormal ECG When compared with ECG of 17-Mar-2025 02:28, No significant change was found Authorizing ProviderResult TypeResult StatusNicol Eri LOCKE-LES NON-INVASIVE CARDIOLOGYFinal ResultPerforming OrganizationAddressCity/State/ZIP CodePhone Number MUSE documented in this encounter Visit Diagnoses Diagnosis Chest pain, unspecified type- Primary documented in this encounter Care Teams Team MemberRelationshipSpecialtyStart DateEnd Date Elsewhere, Pcp PCP - General07/18/01documented as of this encounter
--- OUTSIDE RECORDS SUMMARY | 2025-04-01 18:08 | XMS_ITS | Encounter Summary ---
Author Organization [facility] Address [address] [place] [id number] Phone Care Team Providers Care Senior Maintenance Technician Name Role Phone Elsewhere, Pcp Primary Care Provider Unavailabl e Reason for Visit * ReasonCommentsChest Pain Encounter Details DateTypeDepartmentCare Team (Latest Contact Info)Fcucitxoqhg09/26/2025 6:08 PM WELDING SUPERVISOR - 04/01/2025 8:08 PM CSTEmer[facility] [address] [place] [phone] Gary Alvarado MD [address] [place] [id number] Chest pain on exertion (Primary Dx); Hx of myocarditis; Elevated brain natriuretic peptide (BNP) level; Marijuana use; Bronchitis Discharge Disposition: Home and/or Self Care Social History Tobacco UseTypesPacks/DayYears UsedDateSmoking Tobacco: Every DayCigarettes Smokeless Tobacco: NeverAlcohol UseStandard Drinks/WeekCommentsYes0 (1 standard drink = 0.6 oz pure alcohol)occasionalAUDIT-CAnswerDate RecordedQ1: How often do you have a drink containing alcohol?Monthly or less03/15/2025Q2: How many drinks containing alcohol do you have on a typical day when you are drinking?1 or 2 03/15/2025Q3: How often do you have six or more drinks on one occasion?Never 03/15/2025Hunger Vital SignAnswerDate RecordedWithin the past 12 months, you worried that your food would run out before you got the money to buymore.Patient xabrpyqr78/11/2025Within the past 12 months, the food you bought just didn't last and you didn't have money to get more.Patient arogoacu61/11/2025PRAPARE - TransportationAnswerDate RecordedIn the past 12 months, has lack of transportation kept you from medical appointments or from getting medications? Patient abgpnlsw34/11/2025In the past 12 months, has lack of transportation kept you from meetings, work, or from getting things needed for daily living?Patient wnxsniqc98/11/2025Housing Stability Vital SignAnswerDate RecordedIn the last 12 months, was there a time when you were not able to pay the mortgage or rent on time?Patient fusgyvny06/11/2025In the past 12 months, how many times have you moved where you were living?t any time in the past 12 months, were you homeless or living in a assisted (including now)?Patient yzchueyf13/11/2025 [facility] UtilitiesAnswerDate RecordedIn the past 12 months has the [employer], gas, oil, or water [employer] threatened to shut off services in your home?Patient nggygdyq98/11/2025EH IP Custom IPVAnswerDate RecordedDo you feel UNSAFE in any of your personal relationships with your family members or any other acqua intances?No04/02/2025Sex and Gender InformationValueDate RecordedSex Assigned at HkmneSffq39/27/2022 10:07 PM CDTLegal FrvCpmo5606/16/2012 2:00 AM CSTGender DbcoldipNibf54/27/2022 10:07 PM CDTSexual NnphplljgayUvstoobw15/14/2025 4:12 PM CSTdocumented as of this encounter Last Filed Vital Signs Vital SignReadingTime TakenCommentsBlood Ktixhlks000/6904/01/2025 7:45 PM WELDING SUPERVISOR Zbynk314204/01/2025 8:00 PM PCUVclftjqrduj48 ??C (98.6 ??F)04/01/2025 6:14 PM WELDING SUPERVISOR Respiratory Djpg284706/01/2024 8:00 PM CSTOxygen Hybyapgdjm54%04/01/2025 7:55 PM CSTInhaled Oxygen Concentration--Pwhxpb76.2 kg (190 lb)04/01/2025 6:12 PM WELDING SUPERVISOR Height--Body Mass Index28.8903/17/2025 12:53 PM CSTdocumented in this encounter Functional Status * Patient's Vision Adequate to Safely Complete Daily ActivitiesAnswerDate of GkobvnmpyfRalfgrBov91/11/2025 1:15 PM Angelina Naidu RN * Patient's Memory Adequate to Safely Complete Daily ActivitiesAnswerDate of EigqqgxvbkZeoubeFoy27/11/2025 1:15 PM Angelina Naidu RN documented as of this encounter Mental Status * Patient's Judgment Adequate to Safely Complete Daily ActivitiesAnswerEntry EupiLfglyvWxs77/11/2025 1:15 PM Angelina Naidu RN documented in this encounter Ordered Prescriptions PrescriptionSigDispense QuantityRefillsLast FilledStart DateEnd Date azithromycin (Zithromax) 250 MG tablet Take 1 tablet daily for the next 4 days 4 Tablet dextromethorphan-guaifenesin (Robitussin-DM) 10-100 MG/5ML syrup Take 10 mL by mouth every four hours as needed for Cough. 240 mL albuterol HFA (Proair HFA, Ventolin HFA) 108 (90 Base) MCG/ACT inhalation aerosol Inhale 2 Puffs into the lungs every four hours as needed for Wheezing, Shortness of Breath or Coughfor up to 28 days. Shake before using. 8 g ibuprofen (Motrin) 600 MG tablet Take 1 Tablet by mouth four times a day as needed for Pain. Administer with food. 40 Tablet documented in this encounter Discharge Disposition DispositionCodeDeparture MeansDestinationHome and/or Self CareHomedocumented in this encounter ED Notes * Gary Alvarado MD - 04/01/2025 6:16 PM CST Images from the original note were not included. Patient: Trevor Simth Means of Arrival: Chief Complaint: Chest Pain History of Present Illness: HPI Trevor Smith is a 34 year old male with PMH of schizoaffective disorder (bipolar type), KEIRA, insomnia, polysubstance abuse. Patient has a social history of homelessness. Patient presents to the [facility] ED via EMS with chief complaint of chest pain and shortness of breath with activity. He states has been coughing up some brown sputum. He denies significant nasal congestion or rhinorrhea. Patient was given aspirin 324 mg and nitroglycerin 0.4 mg by EMS. Patient most recently admitted to [facility] 03/17/2025 through 03/19/2025. He had presented for evaluation of chest pain and was found to have a mild troponin elevation. His ECG showed no evidence of acute ischemia. TTE showed no acute abnormalities. CTA coronary arteries showed patent coronary arteries and a structurally normal heart. CT cardiac extracardiac structure showed no incidental findings. MR cardiac function with viability showed no regional wall abnormalities. Normal LV normalwall thickness, global systolic function normal and EF 58%. Right ventricle was normal in cavity size, wall thickness and systolic function. Delayed enhancement imaging demonstrates no evidence of minoo cardial infarction or infiltrative disease. There was an increased T1 value in the inferior wall suggesting myocarditis. UDS was positive for THC and amphetamines. Patient acknowledged using marijuana but denied any knowledge of amphetamine consumption. He was evaluated by cardiology who recommended NSAIDs (ibuprofen) as needed for chest pain. [facility] Review of Systems Constitutional: Positive for fatigue. Negative for chills and fever. HENT: Negative for congestion and sore throat. Respiratory: Positive for cough, chest tightness and shortness of breath. Cardiovascular: Positive for chest pain. Negative for leg swelling. Gastrointestinal: Negative. Allergic/Immunologic: Negative for immunocompromised state. Neurological: Negative. Hematological: Does not bruise/bleed easily. No Known Allergies Prior to Admission Medication List ibuprofen (Motrin) 600 MG tablet Take 1 Tablet by mouth every six hours as needed for Pain. Administer with food. Past Medical History: Past Medical History[1] Past Surgical History: Past Surgical History[2] Family History: Family History[3] Social History: Social History[4] Exam: Initial Vitals Most Recent Vitals Temp: 37 ??C (98.6 ??F) (04/01/251813) Temp: 37 ??C (98.6 ??F) (04/01/251813) Pulse: 99 (04/01/251811) Pulse: 91 (04/01/251944) Resp: 18 (04/01/251811) Resp: 15 (04/01/251944) BP: 127/84 (04/01/251811) BP: 122/69 (04/01/251944) SpO2: 96 % (04/01/251811) SpO2: 95 % (04/01/251944) Weight: 86.2 kg (190 lb) (04/01/251811) Physical Exam: Physical Exam Constitutional: General: He is not in acute distress. Appearance: He is not ill-appearing or diaphoretic. Eyes: Extraocular Movements: Extraocular movements intact. Pupils: Pupils are equal, round, and reactive to light. Neck: Vascular: No JVD. Cardiovascular: Rate and Rhythm: Normal rate and regular rhythm. Pulses: Radial pulses are 2+ on the right side. Heart sounds: No murmur heard. No friction rub. No gallop. Pulmonary: Effort: Pulmonary effort is normal. No tachypnea or respiratory distress. Breath sounds: No wheezing, rhonchi or rales. Musculoskeletal: Cervical back: Normal range of motion and neck supple. Right lower leg: No edema. Left lower leg: No edema. Skin: General: Skin is warm and dry. Capillary Refill: Capillary refill takes less than 2 seconds. Neurological: General: No focal deficit present. Mental Status: He is alert and oriented to person, place, and time. Psychiatric: Mood and Affect: Mood normal. Behavior: Behavior normal. Lab Results: Results for orders placed or performed during the hospital encounter of 04/01/25 SARS-COV-2/INFLUENZA A AND B/RESPIRATORY SYNCYTIAL VIRUS, MOLECULAR DETECTION Collection Time: 04/01/25 6:35 PM Specimen: Nasopharynx; Swab Result Value Ref Range Influenza A Negative Negative Influenza B Negative Negative Respiratory Syncytial Virus Negative Negative SARS-CoV-2 RNA (COVID-19) Negative Negative/Not Detected BLOOD BANK DRAW & HOLD Collection Time: 04/01/25 6:25 PM Result Value Ref Range BB DRAW ONLY COMM BNP Collection Time: 04/01/25 6:25 PM Result Value Ref Range NT-pro B-Type Natriuretic Peptide (NT-proBNP) 361.7 (H) 0.0 - 300.0 pg/mL C-REACTIVE PROTEIN Collection Time: 04/01/25 6:25 PM Result Value Ref Range C-Reactive Protein 0.1 <=0.8 mg/dL COMPREHENSIVE METABOLIC PANEL Collection Time: 04/01/25 6:25 PM Result Value Ref Range Sodium 139 134 - 143 mEq/L Potassium 3.4 3.4 - 5.1 mEq/L Chloride 103 99 - 110 mEq/L Carbon Dioxide 21 19 - 29 mEq/L Anion Gap 15.0 3.0 - 15.0 mEq/L Blood Urea Nitrogen 14 5 - 24 mg/dL Creatinine 0.80 0.70 - 1.20 mg/dL Glomerular Filtration Rate 119 >60 mL/min/1.73 m*2 Calcium 9.0 8.4 - 10.5 mg/dL Glucose 80 70 - 99 mg/dL Protein, Total 7.4 6.0 - 8.0 g/dL Albumin 4.1 3.5 - 5.0 g/dL Alkaline Phosphatase 63 40 - 150 IU/L Aspartate Aminotransferase 37 16 - 40 IU/L Alanine Aminotransferase 30 10 - 48 IU/L Bilirubin, Total 1.6 (H) 0.2 - 1.2 mg/dL TROPONIN I Collection Time: 04/01/25 6:25 PM Result Value Ref Range High Sensitivity Troponin I 25.6 <=35.0 ng/L HEMOGRAM Collection Time: 04/01/25 6:25 PM Result Value Ref Range WBC 14.1 (H) 3.2 - 11.0 10*9/L RBC 4.95 4.14 - 5.76 10*12/L HGB 15.5 12.9 - 16.9 g/dL HCT 44.7 38.4 - 49.7 % MCV 90.3 81.4 - 99.0 fL MCH 31.3 26.7 - 33.1 pg MCHC 34.7 31.6 - 35.5 g/dL RDW 13.6 11.3 - 14.6 % PLT 276 130 - 375 10*9/L D-DIMER Collection Time: 04/01/25 6:25 PM Result Value Ref Range D-Dimer <0.29 <=0.50 ug/mL FEU Imaging Results: Imaging Results XR CHEST 1 VIEW (Final result) Result time 04/01/25 19:29:01 Final result by Juan Jose Nicole MD (04/01/25 19:29:01) Narrative: This document is currently in Final Status Exam XR CHEST 1 VIEW HISTORY: chest pain; FINDINGS: The heart size and pulmonary vasculature are within normal limits. The lungs are clear. There is nopleural effusion or pneumothorax. IMPRESSION: No acute cardiopulmonary abnormality. Electronically Signed: Juan Jose Nicole MD 04/01/2025 7:29 PM Emergency Department Course: 34-year-old male presents for evaluation of chest pain and shortness of breath. Symptoms more prominent on exertion. He was recently admitted for chest pain and a minimally elevated troponin and had extensive cardiology workup including CTA coronary arteries, CT cardiac extra cardiac structures, MRcardiac. Cardiology felt his symptoms were most likely secondary to a myocarditis and recommended ib uprofen. His UDS was positive for THC and amphetamines. Symptoms likely secondary to underlying myocarditis. Patient smells of marijuana. He may be using marijuana laced with amphetamines. Will check ECG to evaluate for any evidence of myocardial injury. I will check a troponin and compare to prior. Will obtain a chest x-ray to evaluate for pneumonia the patient does state that he has been coughing up some brown sputum. Including the differential is bronchitis. Including the differential is pulmonary edema. He will be screened for pulmonary embolismwith a D-dimer. 12 Lead ECG Obtained at 1811 Reviewed at 1815 Ventricular rate: 93 bpm WV interval: 132 ms QRS duration: 82 ms QT/QTc: 410 ms / 509 ms P-R-T axes: 71, 26, 49 Interpretation: Normal sinus rhythm Prolonged QT No evidence of acute ischemia I personally reviewed and interpreted this 12 lead ECG Warp Dyeing Tender Pulse Ox Monitor Initial Treatment Medications ibuprofen (Motrin) tablet 800 mg (800 mg Oral Given 04/01/251842) dextromethorphan-guaifenesin (Robitussin-DM) 10-100 MG/5ML syrup 10 mL (10 mL Oral Given 04/01/251842) albuterol (Proventil, Ventolin) (2.5 MG/3ML) 0.083% nebulizer solution 2.5 mg (2.5 mg Inhalation Given 04/01/251842) Laboratory Analysis High-sensitivity troponin is 25.6 which is within normal limits and negative And PE-pro BNP is minimally elevated at 361 D-dimer is negative essentially ruling out pulmonary embolism. CBC shows a slightly elevated white count of 14.1, hemoglobin 15.5 and platelets 276 Serum electrolytes are normal Hepatic profile normal CRP is 0.1 which is normal Influenza A negative Influenza B negative RSV negative COVID-19 negative Radiology Review Chest x-ray single view read by radiology: No acute cardiopulmonary abnormality I independently reviewed the X-ray images and agree with the radiology interpretation Repeat Evaluation Resting comfortably no acute respiratory distress Temp Pulse BP Resp SpO2 04/01/255 -- 91 122/69 15 95 % I reviewed ECG, labs and chest x-ray with the patient. His troponin is negative today. He screened negative for pulmonary embolism. His BNP is slightly elevated but chest x-ray shows no pulmonary edema and no pneumonia. His symptoms of cough productive of brown sputum may be more consistent with a bronchitis. Plan is to provide the patient with a dose of azithromycin and I will prescribe 4 more days of treatment. May benefit from mucolytic, albuterol and for his chest pain or recommend ibuprofen. I encouraged patient to find alternative methods of THC delivery as smoking marijuana will insulthis lungs and cause bronchitis to worsen. Additional Treatment Medications azithromycin (Zithromax) tablet 500 mg (500 mg Oral Given 04/01/251957) Procedures None Assessment: Chest pain on exertion (Primary) Hx of myocarditis Elevated brain natriuretic peptide (BNP) level Marijuana use Bronchitis Plan: Discharge home F/U with PCP as needed Return to ED as needed Discharge Prescriptions Medication Sig Dispense Start Date End Date Auth. Provider ibuprofen (Motrin) 600 MG tablet Take 1 Tablet by mouth four times a day as needed for Pain. Administer with food. 40 Tablet 04/01/2025 -- Gary Alvarado MD albuterol HFA (Proair HFA, Ventolin HFA) 108 (90 Base) MCG/ACT inhalation aerosol Inhale 2 Puffs into the lungs every four hours as needed for Wheezing, Shortness of Breath or Cough for up to 28 days. Shake before using. 8 g 04/01/2025 04/29/2025 Gary Alvarado MD dextromethorphan-guaifenesin (Robitussin-DM) 10-100 MG/5ML syrup Take 10 mL by mouth every four hours as needed for Cough. 240 mL 04/01/2025 -- Gary Alvarado MD azithromycin (Zithromax) 250 MG tablet Take 1 tablet daily for the next 4 days 4 Tablet 04/02/2025 -- Gary Alvarado MD [1] Past Medical History: Diagnosis Date Closed fracture of metatarsal bone(s) 01/28/2002 Avulsion fx, base of right fifth metatarsal. 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 [4] Social History Tobacco Use Smoking status: Every Day Current packs/day: 1.00 Types: Cigarettes Smokeless tobacco: Never Vaping Use Vaping status: Never Used Substance Use Topics Alcohol use: Yes Comment: occasional Drug use: Yes Types: Marijuana Gary Alvarado MD 04/01/252001 ING SUPERVISOR * Indu Guthrie RN - 04/01/2025 6:15 PM CST Ems gave one nitroglycerin and 324 of asa prior to arrival. Rates chest pain a 6. ING SUPERVISOR * Indu Guthrie RN - 04/01/2025 6:08 PM CST Pt here from urgent care for ongoing chest pressure, dizziness and sob. Pain started around 4 pm. Went to urgent care, was sent here for abd. EKG and further eval. States he vomited once as well. ING SUPERVISOR * Anna Tinsley RN - 04/01/2025 6:08 PM CST Bed: 309 Expected date: Expected time: Means of arrival: Comments: [place] ING SUPERVISOR documented in this encounter Plan of Treatment Not on file documented as of this encounter Procedures Procedure NamePriorityDate/TimeAssociated DiagnosisCommentsXR CHEST 1 VIEWSTAT 04/01/2025 6:36 PM WELDING SUPERVISOR SARS-COV-2/INFLUENZA A AND B/RESPIRATORY SYNCYTIAL VIRUS, MOLECULAR DETECTION STAT106/01/2024 6:35 PM WELDING SUPERVISOR HOLD CONDON FYXRTEDJ14/26/2025 6:25 PM CSTHOLD DARK GREEN WHOLE BLOOD TUBESTAT 04/01/2025 6:25 PM CSTRAINBOW NRSBJARD51/26/2025 6:25 PM WELDING SUPERVISOR HOLD LI MJDNLCTFFVG79/26/2025 6:25 PM CSTHOLD NA WHXIQCBLOCF88/26/2025 6:25 PM CSTHOLD VSCHHYLZ47/26/2025 6:25 PM CSTHOLD SERUM LAFOGMEI31/26/2025 6:25 PM WELDING SUPERVISOR BLOOD BANK DRAW & MCSLWQAK86/26/2025 6:25 PM WELDING SUPERVISOR BNPSTAT Add-On04/01/2025 6:25 PM WELDING SUPERVISOR C REACTIVE ZUMDPDXNZNR77/26/2025 6:25 PM WELDING SUPERVISOR COMPREHENSIVE METABOLIC GOFMZZMIU37/26/2025 6:25 PM WELDING SUPERVISOR TROPONIN ISTAT106/01/2024 6:25 PM WELDING SUPERVISOR MZCZFCBYOKVK95/26/2025 6:25 PM WELDING SUPERVISOR D-DIMERSTAT Add-On04/01/2025 6:25 PM WELDING SUPERVISOR EKG 12-AZWFIYLX86/26/2025 6:12 PM WELDING SUPERVISOR documented in this encounter Results * XR CHEST 1 VIEW (04/01/2025 6:36 PM WELDING SUPERVISOR)Anatomical RegionLateralityModality ChestRadiographic ImagingSpecimen (Source)Anatomical Location / Laterality Collection Method / VolumeCollection TimeReceived Time04/01/2025 6:36 PM WELDING SUPERVISOR Narrative 04/01/2025 7:29 PM WELDING SUPERVISOR This document is currently in Final Status Exam XR CHEST 1 VIEW HISTORY: chest pain; FINDINGS: The heart size and pulmonary vasculature are within normal limits. The lungs are clear. There is nopleural effusion or pneumothorax. IMPRESSION: No acute cardiopulmonary abnormality. Electronically Signed: Juan Jose Nicole MD 04/01/2025 7:29 PM Procedure Note Juan Jose Nicole MD - 04/01/2025 This document is currently in Final Status Exam XR CHEST 1 VIEW HISTORY: chest pain; FINDINGS: The heart size and pulmonary vasculature are within normal limits. Thelungs are clear. There is no pleural effusion or pneumothorax. IMPRESSION: No acute cardiopulmonary abnormality. Electronically Signed: Juan Jose Nicole MD 04/01/2025 7:29 PM Authorizing ProviderResult TypeResult StatusGary ROCKWELL DIAGNOSTIC IMAGING ORDERABLESFinal Result * SARS-COV-2/INFLUENZA A AND B/RESPIRATORY SYNCYTIAL VIRUS, MOLECULAR DETECTION (04/01/2025 6:35 PM WELDING SUPERVISOR)ComponentValueRef RangeTest MethodAnalysis Time Performed AtPathologist SignatureInfluenza BMqerarzcPxbzcftz42/26/2025 7:18 PM [facility] LABORATORYInfluenza PEltxypamGcivpvip20/26/2025 7:18 PM [facility] LABORATORYRespiratory Syncytial VirusNegativeNegative 04/01/2025 7:18 PM [facility]ICAL JNXGEAJJDYNTMZ-XbI-7 RNA (COVID-19) NegativeNegative/Not Eufjfmed55/26/2025 7:18 PM [facility] Specimen (Source)Anatomical Location / LateralityCollection Method / Volume Collection TimeReceived TimeSwabENTIRE NASOPHARYNX / UnknownNon-blood collection / Warlrzr3904/01/2025 6:35 PM CST04/01/2025 6:37 PM WELDING SUPERVISOR Narrative [facility] - 04/01/2025 7:18 PM WELDING SUPERVISOR Test results should be used in combination with clinical observations, patient history and epidemiological information. Method Information This test uses the [employer] Xpert Xpress CoV-2/Flu/RSV plus assay to detect and differentiate RNA targets from SARS-CoV-2, influenza A, influenza B, and/or RSV by real-time polymerase chain reaction (PCR) on the [employer] GeneXpert Instrument System. It has received Emergency Use Authorization (EUA) by the U.S. Food and Drug Administration; performance characteristics have been verified by [facility] in a manner consistent with CLIA requirements. Authorizing ProviderResult TypeResult StatusGary ROCKWELL MICROBIOLOGY - GENERAL ORDERABLESFinal ResultPerforming OrganizationAddressCity/State/ZIP Code Phone Number [facility] [address] [place] [address] * D-DIMER (04/01/2025 6:25 PM WELDING SUPERVISOR)ComponentValueRef RangeTest MethodAnalysis TimePerformed AtPathologist SignatureD-Dimer<0.29<=0.50 ug/mL FEU106/01/2024 6:46 PM [facility]INICAL LABORATORYSpecimen (Source)Anatomical Location / LateralityCollection Method / VolumeCollection TimeReceived TimeBloodBLOOD SPECIMEN / UnknownVenipuncture / Dkmdjnk0504/01/2025 6:25 PM CST04/01/2025 6:30 PM WELDING SUPERVISOR Narrative [facility] - 04/01/2025 6:46 PM WELDING SUPERVISOR The negative predictive cutoff for aid in exclusion of VTE/DVT is <=0.5 ug/ml FEU. Authorizing ProviderResult TypeResult StatusGary ROCKWELL HEMATOLOGY ORDERABLESFinal ResultPerforming OrganizationAddressty/State/ZIP CodePhone Number [facility] [address] [place] [address] * (ABNORMAL) BNP (04/01/2025 6:25 PM WELDING SUPERVISOR)ComponentValueRef RangeTest Method Analysis TimePerformed AtPathologist SignatureNT-pro B-Type Natriuretic Peptide (NT-proBNP)361.7(H)0.0 - 300.0 pg/mL04/01/2025 6:58 PM [facility] CLINICAL LABORATORYSpecimen (Source)Anatomical Location / LateralityCollection Method / VolumeCollection TimeReceived TimeBloodBLOOD SPECIMEN / Unknown Venipuncture / Lsbicai0604/01/2025 6:25 PM CST04/01/2025 6:30 PM WELDING SUPERVISOR Narrative [facility] - 04/01/2025 6:58 PM WELDING SUPERVISOR Renal Failure, obesity and other diseases could cause false positives. Results should be used in combination with clinical observations, patient history and epidemiological information. For patients presenting to the ED with clinical suspicion of heart failure, the results should be interpreted as indicated in the table below. Negative - HF unlikely All Ages <300 Negative pg/mL ? Grayzone - Indeterminate Consider other causes of NT-proBNP elevation 18 to <50 300 to <450 pg/mL 50 to 75 300 to <900 pg/mL >75 300 to <1800 pg/mL Positive - HF likely 18 to <50 >=450 pg/mL 50 to 75 >=900 pg/mL >75 >=1800 pg/mL Authorizing ProviderResult TypeResult StatusGary ROCKWELL CHEMISTRY ORDERABLES ABNFinal ResultPerforming OrganizationAddressCity/[facility]/ZIP CodePhone Number [facility] [address] [place] [address] * HOLD DARK GREEN WHOLE BLOOD TUBE (04/01/2025 6:25 PM WELDING SUPERVISOR)Specimen (Source) Anatomical Location / LateralityCollection Method / VolumeCollection Time Received TimeBloodBLOOD SPECIMEN / UnknownVenipuncture / Ktcynif4604/01/2025 6:25 PM CST04/01/2025 6:30 PM WELDING SUPERVISOR Narrative Authorizing ProviderResult TypeResult StatusGary ROCKWELL LAB SEND OUT ORDERABLESFinal ResultPerforming OrganizationAddressty/State/[facility] CodePhone Number [facility] [address] [place] [address] * HOLD CONDON TUBE (04/01/2025 6:25 PM WELDING SUPERVISOR)Specimen (Source)Anatomical Location / LateralityCollection Method / VolumeCollection TimeReceived TimeBloodBLOOD SPECIMEN / UnknownVenipuncture / Iesthyn3604/01/2025 6:25 PM CST04/01/2025 6:30 PM WELDING SUPERVISOR Narrative Authorizing ProviderResult TypeResult StatusGary ROCKWELL CHEMISTRY ORDERABLESFinal ResultPerforming OrganizationAddressCity/State/ZIP CodePhone Number [facility] [address] [place] [address] * HOLD SERUM TUBE (04/01/2025 6:25 PM WELDING SUPERVISOR)Specimen (Source)Anatomical Location / LateralityCollection Method / VolumeCollection TimeReceived TimeBloodBLOOD SPECIMEN / UnknownVenipuncture / Gnpnjwh4504/01/2025 6:25 PM CST04/01/2025 6:30 PM WELDING SUPERVISOR Narrative Authorizing ProviderResult TypeResult StatusBrnamita ROCKWELL CHEMISTRY ORDERABLESFinal ResultPerforming OrganizationAddressCity/State/ZIP CodePhone Number [facility] [address] [place] [address] * HOLD NA CITRATE (04/01/2025 6:25 PM WELDING SUPERVISOR)Specimen (Source)Anatomical Location / LateralityCollection Method / VolumeCollection TimeReceived TimeBloodBLOOD SPECIMEN / UnknownVenipuncture / Fbdufzx8904/01/2025 6:25 PM CST04/01/2025 6:30 PM WELDING SUPERVISOR Narrative Authorizing ProviderResult TypeResult StatusGary ROCKWELL HEMATOLOGY ORDERABLESFinal ResultPerforming OrganizationAddressCity/State/ZIP CodePhone Number [facility] [address] [place] [address] * HOLD LI HEPARIN (04/01/2025 6:25 PM WELDING SUPERVISOR)Specimen (Source)Anatomical Location / LateralityCollection Method / VolumeCollection TimeReceived TimeBloodBLOOD SPECIMEN / UnknownVenipuncture / Lqxdvos2104/01/2025 6:25 PM CST04/01/2025 6:30 PM WELDING SUPERVISOR Narrative Authorizing ProviderResult TypeResult StatusGary ROCKWELL CHEMISTRY ORDERABLESFinal ResultPerforming OrganizationAddressCity/State/ZIP CodePhone Number [facility] [address] [place] [address] * HOLD PURPLE TUBE (04/01/2025 6:25 PM WELDING SUPERVISOR)Specimen (Source)Anatomical Location / LateralityCollection Method / VolumeCollection TimeReceived TimeBloodBLOOD SPECIMEN / UnknownVenipuncture / Syhfsyf3104/01/2025 6:25 PM CST04/01/2025 6:30 PM WELDING SUPERVISOR Narrative Authorizing ProviderResult TypeResult StatusGary ROCKWELL HEMATOLOGY ORDERABLESFinal ResultPerforming OrganizationAddressty/State/ZIP CodePhone Number [facility] [address] * C-REACTIVE PROTEIN (04/01/2025 6:25 PM WELDING SUPERVISOR)ComponentValueRef RangeTest Method Analysis TimePerformed AtPathologist SignatureC-Reactive Protein0.1<=0.8 mg/dL 04/01/2025 6:52 PM [facility] CLINICAL LABORATORYSpecimen (Source)Anatomical Location / LateralityCollection Method / VolumeCollection TimeReceived Time BloodBLOOD SPECIMEN / UnknownVenipuncture / Mgwhrxi7804/01/2025 6:25 PM WELDING SUPERVISOR 04/01/2025 6:30 PM WELDING SUPERVISOR Narrative Authorizing ProviderResult TypeResult StatusGary ROCKWELL CHEMISTRY ORDERABLESFinal ResultPerforming OrganizationAddressty/[facility] CodePhone Number [facility] [address] * (ABNORMAL) COMPREHENSIVE METABOLIC PANEL (04/01/2025 6:25 PM WELDING SUPERVISOR)Component ValueRef RangeTest MethodAnalysis TimePerformed AtPathologist SignatureSodium 767437 - 143 mEq/L106/01/2024 6:52 PM [facility]IN[facility] LABORATORYPotassium 3.43.4 - 5.1 mEq/L106/01/2024 6:52 PM [facility] RDZJDOOHLIOnhdowxp072 99 - 110 mEq/L106/01/2024 6:52 PM [facility] LABORATORYCarbon Dioxide 2119 - 29 mEq/L106/01/2024 6:52 PM [facility] LABORATORYAnion Gap15.0 3.0 - 15.0 mEq/L106/01/2024 6:52 PM [facility]IN[facility] LABORATORYBlood Urea Jpydadjh139 - 24 mg/dL04/01/2025 6:52 PM [facility] Creatinine0.800.70 - 1.20 mg/dL04/01/2025 6:52 PM [facility]INICAL LABORATORYGlomerular Filtration Ipjh155>60 mL/min/1.73 m* 6:52 PM [facility]IN[facility] LABORATORYComment:Risk of cardiovascular disease increases when GFR is abnormal; persistently reduced GFR values are a specific indication of CKD. This calculation uses CKD-EPI 2020 equation without adjustment for race; it has not been validated in women.Calcium9.08.4 - 10.5 mg/dL04/01/2025 6:52 PM [facility] MUKWLGNXGJNpssaxg4687 - 99 mg/dL04/01/2025 6:52 PM [facility] LABORATORYProtein, Total7.46.0 - 8.0 g/dL04/01/2025 6:52 PM [facility]IN[facility] LABORATORYAlbumin4.13.5 - 5.0 g/dL04/01/2025 6:52 PM [facility] CLINICAL LABORATORYAlkaline Ueajbirjrwr8306 - 150 IU/L106/01/2024 6:52 PM [facility]IN[facility] LABORATORYAspartate Idofyplnkidnbjvf1306 - 40 IU/L106/01/2024 6:52 PM [facility]IN[facility] LABORATORYAlanine Ugtzzkwybttmmpdq5076 - 48 IU/L106/01/2024 6:52 PM [facility]IN[facility] LABORATORYBilirubin, Total1.6(H)0.2 - 1.2 mg/dL04/01/2025 6:52 PM WELDING SUPERVISOR [facility] CLINICAL LABORATORYSpecimen (Source)Anatomical Location / Laterality Collection Method / VolumeCollection TimeReceived TimeBloodBLOOD SPECIMEN / UnknownVenipuncture / Hggfpxd2104/01/2025 6:25 PM CST04/01/2025 6:30 PM WELDING SUPERVISOR Narrative [facility] - 04/01/2025 6:52 PM WELDING SUPERVISOR Current ADA criteria for Glucose: ?Normal: 70-99 mg/dL ?Impaired Fasting Glucose: 100-125 mg/dL ?Diabetes Mellitus: at or above 126 mg/dL The diagnosis of diabetes must be confirmed on a subsequent day by measuring Fasting Plasma Glucose, 2-hr PG or random plasma glucose (if symptoms are present). Authorizing ProviderResult TypeResult StatusGary ROCKWELL CHEMISTRY ORDERABLESFinal ResultPerforming OrganizationAddressCity/State/ZIP CodePhone Number [facility] [address] [place] [id number], [facility] * (ABNORMAL) HEMOGRAM (04/01/2025 6:25 PM WELDING SUPERVISOR)ComponentValueRef RangeTest Method Analysis TimePerformed AtPathologist IfomgvzcdKDM32.1(H)3.2 - 11.0 10*9/L 04/01/2025 6:34 PM [facility] CLIN[facility] LABORATORYRBC4.954.14 - 5.76 10*12/L 04/01/2025 6:34 PM [facility] YZIECBBZOSIRX90.512.9 - 16.9 g/dL 04/01/2025 6:34 PM [facility] OIAHEIAKMJCQM44.738.4 - 49.7 % 04/01/2025 6:34 PM [facility] SNDWTSVGVCUYP68.381.4 - 99.0 fL 04/01/2025 6:34 PM [facility] LJTWEDKFKWHVF58.326.7 - 33.1 pg 04/01/2025 6:34 PM [facility] RQBVLKHBMZUFVD80.731.6 - 35.5 g/dL 04/01/2025 6:34 PM [facility] BXINWBSOBLERN00.611.3 - 14.6 % 04/01/2025 6:34 PM [facility] SPVABITDVXBAO939929 - 375 10*9/L 04/01/2025 6:34 PM [facility] CLINICAL LABORATORYSpecimen (Source)Anatomical Location / LateralityCollection Method / VolumeCollection TimeReceived Time BloodBLOOD SPECIMEN / UnknownVenipuncture / Wlqvasy7604/01/2025 6:25 PM WELDING SUPERVISOR 04/01/2025 6:30 PM WELDING SUPERVISOR Narrative Authorizing ProviderResult TypeResult StatusGary ROCKWELL HEMATOLOGY ORDERABLESFinal ResultPerforming OrganizationAddressCity/State/ZIP CodePhone Number [facility] [address] [address] * BLOOD BANK DRAW & HOLD (04/01/2025 6:25 PM WELDING SUPERVISOR)ComponentValueRef RangeTest MethodAnalysis TimePerformed AtPathologist SignatureBB DRAW YBLNPSXE61/26/2025 6:33 PM [facility] BLOOD BANKComment: A specimen has been received in [facility] and is available for testing up to 3 days from draw. ??Please notify [facility] if a Type and Screen is needed. Specimen (Source)Anatomical Location / LateralityCollection Method / Volume Collection TimeReceived TimeBloodBLOOD SPECIMEN / UnknownVenipuncture / Unknown 04/01/2025 6:25 PM CST04/01/2025 6:30 PM WELDING SUPERVISOR Narrative Authorizing ProviderResult TypeResult StatusGary ROCKWELL BLOOD BANK ORDERABLESEdited Result - FinalPerforming OrganizationAddressCity/State/ZIP Code Phone Number [facility] BLOOD BANK [address] [place] [address] * TROPONIN I (04/01/2025 6:25 PM WELDING SUPERVISOR)ComponentValueRef RangeTest MethodAnalysis TimePerformed AtPathologist SignatureHigh Sensitivity Troponin I25.6<=35.0 ng/L106/01/2024 6:58 PM [facility]STNEW[facility] CL[facility] LABORATORYSpecimen (Source) Anatomical Location / LateralityCollection Method / VolumeCollection Time Received TimeBloodBLOOD SPECIMEN / UnknownVenipuncture / Vdokftj1504/01/2025 6:25 PM CST04/01/2025 6:30 PM WELDING SUPERVISOR Narrative Authorizing ProviderResult TypeResult StatusGary ROCKWELL CHEMISTRY ORDERABLESFinal ResultPerforming OrganizationAddressty/State/[facility] CodePhone Number [facility] [address] [place] [address] * EKG 12-LEAD (04/01/2025 6:12 PM WELDING SUPERVISOR)ComponentValueRef RangeTest MethodAnalysis TimePerformed AtPathologist SignatureVentricular Aurx89BWUGENCGmjccr Rate93 BPMMUSEP-R Eopvewkx755fnGNMYEON Syknovwu73mpVEOOKL054riAWDYJTd139qeUNTTZ [place] 71degreesMUSER Vaci93vfidszmAMKWT Cfpe28kjvxabkHLRUZiyjtbiq (Source)Anatomical Location / LateralityCollection Method / VolumeCollection TimeReceived Time 04/01/2025 6:12 PM WELDING SUPERVISOR Narrative MUSE - 04/01/2025 8:37 PM WELDING SUPERVISOR Confirming Doc Gareth Carrion Normal sinus rhythm Prolonged QT Abnormal ECG When compared with ECG of 01-Apr-2025 18:09, No significant change was found Procedure Note Gareth Carrion MD - 04/01/2025 Confirming Doc Gareth Carrion Normal sinus rhythm Prolonged QT Abnormal ECG When compared with ECG of 01-Apr-2025 18:09, No significant change was found Authorizing ProviderResult TypeResult StatusGary BERNARD ECG ORDERABLES Final ResultPerforming OrganizationAddressCity/State/ZIP CodePhone Number MUSE documented in this encounter Visit Diagnoses Diagnosis Chest pain on exertion- Primary Chest pain, unspecified Hx of myocarditis Personal history of other diseases of circulatory system Elevated brain natriuretic peptide (BNP) level Other nonspecific findings on examination of blood Marijuana use Cannabis abuse, unspecified Bronchitis Bronchitis, not specified as acute or chronic documented in this encounter Administered Medications Medication OrderMAR ActionAction DateDoseRateSite albuterol (Proventil, Ventolin) (2.5 MG/3ML) 0.083% nebulizer solution 2.5 mg 2.5 mg, Inhalation, ONCE, 1 dose, On Sun04/01/25 at 1900 Given04/01/2025 6:43 PM CST2.5 mg azithromycin (Zithromax) tablet 500 mg 500 mg, Oral, ONCE, 1 dose, On Sun04/01/25 at 2000, Indication? suspected infection, Antibiotic Indication for Use: Other (Add Comment), Other Indication(s): bronchitis Indications:KlmcuzlhgUnhya90/26/2025 7:58 PM YZF086 mg dextromethorphan-guaifenesin (Robitussin-DM) 10-100 MG/5ML syrup 10 mL 10 mL, Oral, ONCE, 1 dose, On Sun04/01/25 at 1900 Given04/01/2025 6:43 PM CST10 mL ibuprofen (Motrin) tablet 800 mg 800 mg, Oral, ONCE, 1 dose, On Sun04/01/25 at 1900 Given04/01/2025 6:43 PM KAH018 mgdocumented in this encounter Active and Recently Administered Medications Times are shown in WELDING SUPERVISOR.Medication Order/ albuterol (Proventil, Ventolin) (2.5 MG/3ML) 0.083% nebulizer solution 2.5 mg (COMPLETED) 2.5 mg, Inhalation, ONCE, 1 dose, On Sun04/01/25 at 1900 * 1843 (Given - Provider: JuanJ ose Mcguire) azithromycin (Zithromax) tablet 500 mg (COMPLETED) 500 mg, Oral, ONCE, 1 dose, On Sun04/01/25 at 2000, Indication? suspected infection, Antibiotic Indication for Use: Other (Add Comment), Other Indication(s): bronchitis * 1957 (Given - Provider: Indu Blank, RN) dextromethorphan-guaifenesin (Robitussin-DM) 10-100 MG/5ML syrup 10 mL (COMPLETED) 10 mL, Oral, ONCE, 1 dose, On Sun04/01/25 at 1900 * 1843 (Given - Provider: Juan Jose Mcguire) ibuprofen (Motrin) tablet 800 mg (COMPLETED) 800 mg, Oral, ONCE, 1 dose, On Sun04/01/25 at 1900 * 1843 (Given - Provider: Juan Jose Mcguire) documented in this encounter Additional Health Concerns InfectionOnset DateLast IndicatedResolved TimeR/O Respiratory Pathogens 7:18 PM CSTR/O COVID-19104/01/2025 7:18 PM CSTdocumented as of this encounter Care Teams Team MemberRelationshipSpecialtyStart DateEnd Date Elsewhere, Pcp PCP - General07/18/01documented as of this encounter
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
--- OUTSIDE RECORDS SUMMARY | 2025-04-13 15:07 | XMS_ITS | Encounter Summary ---
Author Organization [facility] Address [address] [place] [address] Phone Care Team Providers Care Fishing Game Warden Name Role Phone Elsewhere, Pcp Primary Care Provider Unavailabl e Reason for Visit * ReasonCommentsPsych Evaluation Encounter Details DateTypeDepartmentCare Team (Latest Contact Info)Ztnxwomadcj34/08/2025 3:07 PM AGRICULTURAL SCIENCES PROFESSOR - 04/14/2025 2:11 PM CSTEmergency [facility] EM[facility] [address] [place] [phone] Raleigh Kimbrough, DO [address] [place] [phone] Gary Arriaza, DO [address] [place] [phone] Louie Alaniz MD [address] [place] [address] Jignesh Hugo MD [address] [place] [phone] Polysubstance abuse (HCC) (Primary Dx) Discharge Disposition: Psychiatric Hospital Social History Tobacco UseTypesPacks/DayYears UsedDateSmoking Tobacco: [...] or more drinks on one occasion?Less than kgeoaqf3304/03/2025Hunger Vital SignAnswerDate RecordedWithin the past 12 months, [...] were you homeless or living in a [place] (including now)?Yes04/03/2025HC UtilitiesAnswerDate RecordedIn the past 12 months has the [employer], gas, oil, or water company threatened to shut off services in your home?No04/03/2025EH IP Custom IPVAnswerDate RecordedDo you feel UNSAFE in any of your personal relationships with your family members or any other acquaintances?No04/13/2025Sex and Gender InformationValueDate Recorded Sex Assigned at MrscvVveq63/27/2022 10:07 PM CDTLegal ApvNeyb9606/16/2012 2:00 AM CSTGender EdndfiavBhra09/27/2022 10:07 PM CDTSexual OrientationStraight 04/19/2025 4:12 PM CSTdocumented as of this encounter Last Filed Vital Signs Vital SignReadingTime TakenCommentsBlood Boindxuw70/6012/01/2025 10:33 AM AGRICULTURAL SCIENCES PROFESSOR Rscta027504/14/2025 10:33 AM UETRbrgaytmizc79.3 ??C (97.4 ??F)04/14/2025 10:33 AM CSTRespiratory Atox016606/15/2024 10:33 AM CSTOxygen Uhfeylhesk81%04/14/2025 10:33 AM CSTInhaled Oxygen Concentration--Weight--Height--Body Mass Index--documented in this encounter Functional Status * Patient's Vision Adequate to Safely Complete Daily ActivitiesAnswerDate of CqbmsaohwlTbzjbgFbf68/09/2025 5:50 AM Shirlene Fishman RN * Patient's Memory Adequate to Safely Complete Daily ActivitiesAnswerDate of XobgqevolmFxdfurPcv55/09/2025 5:50 AM Shirlene Fishman RN documented as of this encounter Mental Status * Patient's Judgment Adequate to Safely Complete Daily ActivitiesAnswerEntry FffuCfncveWbi12/09/2025 5:50 AM Shirlene Fishman RN documented in this encounter Discharge Instructions * Discharge Instructions* Jignesh Hugo MD - 04/14/2025 12:52 PM AGRICULTURAL SCIENCES PROFESSOR Avoid drugs. You are discharged to go to [facility] for further treatment. Return to the Emergency Department with any other concerning symptoms. CULTURAL SCIENCES PROFESSOR CULTURAL SCIENCES PROFESSOR documented in this encounter Discharge Disposition DispositionCodeDeparture MeansK[facility]ucky [facility] HospitalOther Facility Type documented in this encounter Progress Notes * Kael Swain LSW - 04/13/2025 3:14 PM CST Discharge Planning: Patient is currently on the waiting list at [facility] [phone]. At this time they are currently full. They anticipate some discharges tomorrow. If patient is not appropriate for inpatient psych.. [facility] may be an option. Case Management will continue to follow and assist as needed. CULTURAL SCIENCES PROFESSOR documented in this encounter ED Notes * Wilder Agarwal RN - 04/14/2025 1:20 PM CST Pt to discharge from [facility] for direct admission to [facility]. Pt states they feel safe for transfer; transportation provided by [facility] wedding transportation driver; [employer] [facility] intake completed by Larry from [facility]. Pt sent with all belongings. Discharge complete. CULTURAL SCIENCES PROFESSOR * Jignesh Hugo MD - 04/14/2025 12:53 PM CST 34-year-old male with underlying schizoaffective disorder, substance abuse. Presented with recurrent psychosis. Cleared this morning. Seems to be back to baseline. [place] [facility] [place] [facility] [place] Will discharge for further treatment in that setting. Jignesh Hugo MD 04/14/25 1255 CULTURAL SCIENCES PROFESSOR * Wilder Agarwal RN - 04/14/2025 10:51 AM CST Pt awake; contract technical writer to pt's room for shift assessment. Pt calm & appropriate. VS: BP: 99/60, Temp:36.3 ??C (97.4 ??F) Oral, Pulse: 87, Resp: 16, SpO2: 98 %. Pt ate breakfast with a good appetite. Pt denied current SI/SIB urges, HI, & Hallucinations. Pt apologized for behavior from yesterday, 04/13; reported that he was feeling better & more clear after sleeping. Currently bed-resting; No acute needs/concerns observed or verbalized. BARS 4. 1030 - Larry from [facility] ([phone]) contacted [facility] to report that [facility] would have a bed available for pt @ 1430 today. Pt verbalized agreement/desire to go to . Care Team updated. CULTURAL SCIENCES PROFESSOR CULTURAL SCIENCES PROFESSOR * Gary Arriaza, - 04/13/2025 11:12 PM CST ED transfer of care note: Patient received in signout. In brief this is a 34-year-old gentleman with schizoaffective disorder, methamphetamine use disorder, cannabis use who presents for erratic behavior. Recent admission forpsychosis. Patient was trying to escape multiple times and was given Zyprexa, Haldol, Benadryl and Ativan. Lab work was obtained and reviewed which is nonactionable. If patient clears he can be discharged in the morning. Should he have ongoing concern for psychosis, will have PCS evaluate. Gary Arriaza DO 04/14/25 0650 CULTURAL SCIENCES PROFESSOR * Jacy Cadet HUC - 04/13/2025 9:57 PM CST If needed you can call youngest sister. Stated she can give information on his mental health. [facility] [phone] CULTURAL SCIENCES PROFESSOR * Baron Thrasher RN - 04/13/2025 6:44 PM CST Pt was eating dinner in his room standing up, pt bent over to pick something up and fell forward into the door hitting his head on the door. Pt back up to his feet on his own. Pt encouraged to sit inchair or on his bed. Pt denies pain, N/V, or dizziness. Provider notified. CULTURAL SCIENCES PROFESSOR * Baron Thrasher RN - 04/13/2025 6:10 PM CST Pt again attempted to elope unit through the lakshmi port, expressing paranoid and delusional statements, including fears of being harmed stating, I'm not going to be burned alive!. He refused to re-enter the unit and his room, requiring significant verbal redirection and additional staff support. After intervention, he returned to the unit and eventually entered his room. IM PRN medications were administered as ordered. Provider was updated. CULTURAL SCIENCES PROFESSOR * Baron Thrasher RN - 04/13/2025 4:52 PM CST Pt attempted to leave the unit and ran into a closed exit door, subsequently reporting left foot pain. He expressed paranoid and nonsensical statements, including a complaint of being raped to . He was redirected to his room, provided with an ice pack for his foot, and the provider was updated. CULTURAL SCIENCES PROFESSOR * Raleigh Kimbrough DO - 04/13/2025 3:49 PM CST Patient: Trevor Smith Means of Arrival: Chief Complaint: Psych Evaluation History of Present Illness: HPI 34-year-old gentleman with schizoaffective disorder, methamphetamine use disorder and cannabis abuse presents for evaluation of strange behavior out in public. Apparently he was at the [facility], making strange statements, but not acting aggressively. Recent discharge from [facility] for psychosis. Apparently last year during hospitalization commitment was pursued but not granted. He improved with olanzapine, but per the notes, had poor insight into the contribution of substances to his episodes of psychosis. He is conversing with me, but guarded. Tells me he was trying to self manage some problems, but will not talk about drug use. Review of Systems Unable to perform ROS: Psychiatric disorder No Known Allergies Prior to Admission Medication List Med List Status: ED Triage Only Set By: Remy Cedillo RN at 04/13/2025 3:07 PM No Medications Reported Past Medical History: Past Medical History[1] Past Surgical History: Past Surgical History[2] Family History: Family History[3] Social History: Social History[4] Exam: Initial Vitals Most Recent Vitals Temp: 36.5 ??C (97.7 ??F) (04/13/25 1530) Temp: 36.5 ??C (97.7 ??F) (04/13/25 1530) Pulse: 116 (04/13/25 1530) Pulse: 116 (04/13/25 1530) Resp: 18 (04/13/25 1530) Resp: 18 (04/13/25 1530) BP: 120/86 (04/13/25 1530) BP: 120/86 (04/13/25 1530) SpO2: 97 % (04/13/25 1530) SpO2: 97 % (04/13/25 1530) Physical Exam: Physical Exam Vitals and nursing note reviewed. Constitutional: General: He is in acute distress. Appearance: He is well-developed. HENT: Head: Normocephalic and atraumatic. Eyes: Conjunctiva/sclera: Conjunctivae normal. Pulmonary: Effort: Pulmonary effort is normal. No respiratory distress. Musculoskeletal: Cervical back: Neck supple. Lymphadenopathy: Cervical: No cervical adenopathy. Neurological: Mental Status: He is alert and oriented to person, place, and time. Psychiatric: Attention and Perception: He is inattentive. Speech: Speech is rapid and pressured. Thought Content: Thought content is paranoid. Thought content does not include homicidal or suicidal ideation. Judgment: Judgment is impulsive. Lab Results: Results for orders placed or performed during the hospital encounter of 04/13/25 BASIC METABOLIC PANEL Collection Time: 04/13/25 3:37 PM Result Value Ref Range Sodium 136 134 - 143 mEq/L Potassium 3.4 3.4 - 5.1 mEq/L Chloride 103 99 - 110 mEq/L Carbon Dioxide 21 19 - 29 mEq/L Anion Gap 12.0 3.0 - 15.0 mEq/L Blood Urea Nitrogen 12 5 - 24 mg/dL Creatinine 1.01 0.70 - 1.20 mg/dL Glomerular Filtration Rate 100 >60 mL/min/1.73 m*2 Calcium 9.7 8.4 - 10.5 mg/dL Glucose 118 (H) 70 - 99 mg/dL HEMOGRAM Collection Time: 04/13/25 3:37 PM Result Value Ref Range WBC 13.4 (H) 3.2 - 11.0 10*9/L RBC 5.03 4.14 - 5.76 10*12/L HGB 15.7 12.9 - 16.9 g/dL HCT 44.8 38.4 - 49.7 % MCV 89.1 81.4 - 99.0 fL MCH 31.2 26.7 - 33.1 pg MCHC 35.0 31.6 - 35.5 g/dL RDW 13.2 11.3 - 14.6 % PLT 343 130 - 375 10*9/L ALCOHOL Collection Time: 04/13/25 3:37 PM Result Value Ref Range Alcohol <10.0 <=10.0 mg/dL Imaging Results: Imaging Results None Emergency Department Course: Differential Diagnosis: Psychosis, substance use, decompensated mental health. Medications OLANZapine (ZyPREXA Zydis) disintegrating tablet 10 mg (10 mg Oral Given 04/13/251710) haloperidol lactate (Haldol) injection 5 mg (5 mg Intramuscular Given 04/13/251808) diphenhydrAMINE (Benadryl) injection 50 mg (50 mg Intramuscular Given 04/13/251808) LORazepam (Ativan) Intramuscular 2 mg (2 mg Intramuscular Given 04/13/251807) Procedures: Procedures Medical Decision Making Initially received olanzapine for his paranoid and disorganized behavior. Afterwards, made multipleruns at the door, so for the staff's protection he received the above-noted medications to good effect. Afterward slept soundly. He has a history of psychosis induced by methamphetamine as noted above. Plan to let the antipsychotic work overnight, if in the morning he still disorganized, may need to consider PCS evaluation. Ifhe clears and demonstrates decisional capacity, he may be free to go. [facility] [place]. Assessment: Polysubstance abuse (HCC) (Primary) Plan: Discharge Prescriptions None Disposition: ED Disposition None Discharge Instructions None [1] Past Medical History: Diagnosis Date Closed [...] Use Smoking status: Every Day Current packs/day: 0.50 Average packs/day: 0.5 packs/day for 5.9 years (3.0 ttl pk-yrs) Types: Cigarettes Start date: 2019 Smokeless tobacco: Never Vaping Use Vaping status: Never Used Substance Use Topics Alcohol use: Yes Alcohol/week: 0.0 - 1.0 standard drinks of alcohol Comment: occasional Drug use: Yes Types: Marijuana Raleigh Kimbrough DO 04/13/252232 CULTURAL SCIENCES PROFESSOR * Baron Thrasher RN - 04/13/2025 3:07 PM CST Pt brought in by EMS, EMS state pt was standing outside [facility] making delusional and paranoid statements. EMS state pt smoked, some sort of cart unsure of what exactly it was. Pt was supposed to go to [facility] but does not have active insurance and [facility] was reportedly full. CULTURAL SCIENCES PROFESSOR CULTURAL SCIENCES PROFESSOR documented in this encounter Miscellaneous Notes * Care Plan - Shirlene Larsen RN - 04/14/2025 5:48 AM CST End of Shift Summary and Plan of Care Behavior assessed during interactions; interventions based on observed presentation and immediate safety needs for Pt and others. Risk-appropriate safety measures were in place. Basic needs (hydration, nutrition, hygiene) offered/facilitated as tolerated. Medications administered as prescribed. Emot ional support offered, considering engagement. Efforts directed towards a therapeutic environment and addressing immediate needs. Overall status/stability evaluated periodically and as indicated by changes. Care activities aligned with established treatment goals, legal status, and disposition. Pt appeared resting; no signs of distress were noted by this nurse during interactions or on unit cameras. q15 checks continue; no acute concerns were reported to this RN. BARS 2. Goals/Plan for Shift Patient/Family stated goal for [...] engagement in care. Summary of goal(s) progression: Maintaining Goals per Patient Condition CULTURAL SCIENCES PROFESSOR documented in this encounter Plan of Treatment NameTypePriorityAssociated DiagnosesOrder ScheduleURINE DRUG SCREENLabSTATStat Lab Orders for 1 Occurrences starting 04/13/2025 until 04/13/2025documented as of this encounter Procedures Procedure NamePriorityDate/TimeAssociated DiagnosisCommentsHOLD LI HEPARINSTAT 04/13/2025 3:37 PM CSTHOLD NA EAJSCATMJTR80/08/2025 3:37 PM CSTHOLD EDTASTAT 04/13/2025 3:37 PM CSTHOLD SERUM BCMEQNVJ86/08/2025 3:37 PM CSTBASIC METABOLIC OHWCLBTVO69/08/2025 3:37 PM AGRICULTURAL SCIENCES PROFESSOR TVUWYOOVUQTB53/08/2025 3:37 PM AGRICULTURAL SCIENCES PROFESSOR UKEWTSIMKEI19/08/2025 3:37 PM AGRICULTURAL SCIENCES PROFESSOR documented in this encounter Results * ALCOHOL (04/13/2025 3:37 PM AGRICULTURAL SCIENCES PROFESSOR)ComponentValueRef RangeTest MethodAnalysis TimePerformed AtPathologist SignatureAlcohol<10.0<=10.0 mg/dL04/13/2025 4:07 PM CSTEH [facility] CLINICAL LABORATORYSpecimen (Source)Anatomical Location / LateralityCollection Method / VolumeCollection TimeReceived TimeBloodBLOOD SPECIMEN / UnknownVenipuncture / Ekprelj5304/13/2025 3:37 PM CST04/13/2025 3:45 PM AGRICULTURAL SCIENCES PROFESSOR Narrative Authorizing ProviderResult TypeResult StatusChristopher Francis Kimbrough DO CHEMISTRY ORDERABLESFinal ResultPerforming OrganizationAddressCity/State/ZIP CodePhone Number [facility] [address] [place] [phone], [place] * (ABNORMAL) BASIC METABOLIC PANEL (04/13/2025 3:37 PM AGRICULTURAL SCIENCES PROFESSOR)ComponentValueRef RangeTest MethodAnalysis TimePerformed AtPathologist PxzkfimvbMqcwqv156715 - 143 mEq/L106/14/2024 4:07 PM [facility] CLINICAL LABORATORYPotassium3.43.4 - 5.1 mEq/L106/14/2024 4:07 PM [facility] CLINICAL IIKOSZMYTKYctjahco19902 - 110 mEq/L106/14/2024 4:07 PM [facility] CLINICAL LABORATORYCarbon Zcnhosz3503 - 29 mEq/L106/14/2024 4:07 PM [facility] CLINICAL LABORATORYAnion Gap12.03.0 - 15.0 mEq/L106/14/2024 4:07 PM [facility] CLINICAL LABORATORYBlood Urea Wgpfahxc192 - 24 mg/dL04/13/2025 4:07 PM [facility] CLINICAL LABORATORYCreatinine1.010.70 - 1.20 mg/dL04/13/2025 4:07 PM [facility] CLINICAL LABORATORYGlomerular Filtration Eiyg297>60 mL/min/1.73 m* 4:07 PM [facility] CLINICAL LABORATORYComment:Risk of cardiovascular disease increases when GFR is abnormal; persistently reduced GFR values are a specific indication of CKD. This calculation uses CKD-EPI 2020 equation without adjustment for race; it has not been validated in women.Calcium9.78.4 - 10.5 mg/dL04/13/2025 4:07 PM [facility] CLINICAL WRZVFVZSVLRpmyceq760(H)70 - 99 mg/dL04/13/2025 4:07 PM [facility] CLINICAL LABORATORYSpecimen (Source)Anatomical Location / LateralityCollection Method / VolumeCollection TimeReceived TimeBloodBLOOD SPECIMEN / UnknownVenipuncture / Mfhzqyb5504/13/2025 3:37 PM CST04/13/2025 3:45 PM AGRICULTURAL SCIENCES PROFESSOR [facility] CLINICAL LABORATORY - 04/13/2025 4:07 PM [facility] Current ADA criteria for Glucose: ?Normal: 70-99 mg/dL ?Impaired Fasting Glucose: 100-125 mg/dL ?Diabetes Mellitus: at or above 126 mg/dL The diagnosis of diabetes must be confirmed on a subsequent day by measuring Fasting Plasma Glucose, 2-hr PG or random plasma glucose (if symptoms are present). Authorizing ProviderResult TypeResult StatusChristopher B Luis E [facility] CHEMISTRY ORDERABLESFinal ResultPerforming OrganizationAddressCity/State/ZIP CodePhone Number [facility] [address] [place] [address] * (ABNORMAL) HEMOGRAM (04/13/2025 3:37 PM AGRICULTURAL SCIENCES PROFESSOR)ComponentValueRef RangeTest Method Analysis TimePerformed AtPathologist WapflnpnbXXE72.4(H)3.2 - 11.0 10*9/L 04/13/2025 4:19 PM [facility] CLINICAL LABORATORYRBC5.034.14 - 5.76 10*12/L 04/13/2025 4:19 PM [facility] CLINICAL ZLESFFTVPWJSI81.712.9 - 16.9 g/dL 04/13/2025 4:19 PM [facility] CLINICAL NKEAXFNAEGGDI05.838.4 - 49.7 % 04/13/2025 4:19 PM [facility] CLINICAL EXAWUBCOUGSAP50.181.4 - 99.0 fL 04/13/2025 4:19 PM [facility] CLINICAL RKJSESPYJDZAG37.226.7 - 33.1 pg 04/13/2025 4:19 PM [facility] CLINICAL POKGFQEPYSSIWQ49.031.6 - 35.5 g/dL 04/13/2025 4:19 PM [facility] CLINICAL LCVIXEJFNIDIY54.211.3 - 14.6 % 04/13/2025 4:19 PM [facility] CLINICAL APSDUTJJUPHLR090819 - 375 10*9/L 04/13/2025 4:19 PM [facility] CLINICAL LABORATORYSpecimen (Source)Anatomical Location / LateralityCollection Method / VolumeCollection TimeReceived Time BloodBLOOD SPECIMEN / UnknownVenipuncture / Fpfkxaw6004/13/2025 3:37 PM AGRICULTURAL SCIENCES PROFESSOR 04/13/2025 3:45 PM AGRICULTURAL SCIENCES PROFESSOR Narrative Authorizing ProviderResult TypeResult StatusChristopher B Luis E [facility] HEMATOLOGY ORDERABLESFinal ResultPerforming OrganizationAddressCity/State/ZIP CodePhone Number [facility] [address] [place], [place] [id number] * HOLD SERUM TUBE (04/13/2025 3:37 PM AGRICULTURAL SCIENCES PROFESSOR)Specimen (Source)Anatomical Location / LateralityCollection Method / VolumeCollection TimeReceived TimeBloodBLOOD SPECIMEN / UnknownVenipuncture / Wxxecbh6604/13/2025 3:37 PM CST04/13/2025 3:45 PM AGRICULTURAL SCIENCES PROFESSOR Narrative Authorizing ProviderResult TypeResult StatusChristopher B Kimbrough DOEC CHEMISTRY ORDERABLESFinal ResultPerforming OrganizationAddressCity/State/ZIP CodePhone Number [facility] [address] [place] [address] * HOLD NA CITRATE (04/13/2025 3:37 PM AGRICULTURAL SCIENCES PROFESSOR)Specimen (Source)Anatomical Location / LateralityCollection Method / VolumeCollection TimeReceived TimeBloodBLOOD SPECIMEN / UnknownVenipuncture / Eoceoaw6204/13/2025 3:37 PM CST04/13/2025 3:45 PM AGRICULTURAL SCIENCES PROFESSOR Narrative Authorizing ProviderResult TypeResult StatusChristopher B Kimbrough DOEC HEMATOLOGY ORDERABLESFinal ResultPerforming OrganizationAddressCity/State/ZIP CodePhone Number [facility] [address] [place] [address] * HOLD PURPLE TUBE (04/13/2025 3:37 PM AGRICULTURAL SCIENCES PROFESSOR)Specimen (Source)Anatomical Location / LateralityCollection Method / VolumeCollection TimeReceived TimeBloodBLOOD SPECIMEN / UnknownVenipuncture / Quhvsfi8604/13/2025 3:37 PM CST04/13/2025 3:45 PM AGRICULTURAL SCIENCES PROFESSOR Narrative Authorizing ProviderResult TypeResult StatusChristopher B Kimbrough DOEC HEMATOLOGY ORDERABLESFinal ResultPerforming OrganizationAddressCity/State/ZIP CodePhone Number [facility] [address] [place] [address] * HOLD LI HEPARIN (04/13/2025 3:37 PM AGRICULTURAL SCIENCES PROFESSOR)Specimen (Source)Anatomical Location / LateralityCollection Method / VolumeCollection TimeReceived TimeBloodBLOOD SPECIMEN / UnknownVenipuncture / Lnlzqsq3204/13/2025 3:37 PM CST04/13/2025 3:45 PM AGRICULTURAL SCIENCES PROFESSOR Narrative Authorizing ProviderResult TypeResult StatusChristopher B Kimbrough DOEC CHEMISTRY ORDERABLESFinal ResultPerforming OrganizationAddressCity/State/ZIP CodePhone Number [facility] [address] [place] [address] documented in this encounter Visit Diagnoses Diagnosis Polysubstance abuse (HCC)- Primary Other, mixed, or unspecified nondependent drug abuse, unspecified documented in this encounter Administered Medications Medication OrderMAR ActionAction DateDoseRateSite diphenhydrAMINE (Benadryl) injection 50 mg 50 mg, Intramuscular, ONCE, 1 dose, On Sun04/13/25 at 1800 Given04/13/2025 6:09 PM CST50 mgLeft Upper Arm diphenhydrAMINE (Benadryl) injection ADS OVERRIDE 1 dose, Starting on Sun04/13/25 at 1758, Until Sun04/13/25 at 1809 haloperidol lactate (Haldol) injection 5 mg 5 mg, Intramuscular, ONCE, 1 dose, On Sun04/13/25 at 1800 Given04/13/2025 6:09 PM CST5 mg haloperidol lactate (Haldol) injection ADS OVERRIDE 1 dose, Starting on Sun04/13/25 at 1757, Until Sun04/13/25 at 1809 LORazepam (Ativan) injection ADS OVERRIDE 1 dose, Starting on Sun04/13/25 at 1757, Until Sun04/13/25 at 1808 LORazepam (Ativan) Intramuscular 2 mg 2 mg, Intramuscular, ONCE, 1 dose, On Sun04/13/25 at 1800 Given04/13/2025 6:08 PM CST2 mgRight Upper Arm OLANZapine (ZyPREXA Zydis) disintegrating tablet 10 mg 10 mg, Oral, ONCE, 1 dose, On Sun04/13/25 at 1600 Given04/13/2025 5:11 PM CST10 mgdocumented in this encounter Active and Recently Administered Medications Times are shown in AGRICULTURAL SCIENCES PROFESSOR.Medication Order diphenhydrAMINE (Benadryl) injection 50 mg (COMPLETED) 50 mg, Intramuscular, ONCE, 1 dose, On Sun04/13/25 at 1800 * 1809 (Given - Provider: Baron Thrasher RN) haloperidol lactate (Haldol) injection 5 mg (COMPLETED) 5 mg, Intramuscular, ONCE, 1 dose, On Sun04/13/25 at 1800 * 1809 (Given - Provider: Baron Thrasher RN) LORazepam (Ativan) Intramuscular 2 mg (COMPLETED) 2 mg, Intramuscular, ONCE, 1 dose, On Sun04/13/25 at 1800 * 1808 (Given - Provider: Baron Thrasher, RENATO) OLANZapine (ZyPREXA Zydis) disintegrating tablet 10 mg (COMPLETED) 10 mg, Oral, ONCE, 1 dose, On Sun04/13/25 at 1600 * 1711 (Given - Provider: Baron Thrasher, RENATO) documented in this encounter Orders NursingCountLast Ordered DateFirst Ordered DateUPDATE LEVEL OF CARE - ED BOARDER [id number] in this encounter Care Teams Team MemberRelationshipSpecialtyStart DateEnd Date Elsewhere, Pcp PCP - General07/18/01documented as of this encounter
--- OUTSIDE RECORDS SUMMARY | 2025-04-18 14:19 | XMS_ITS | Encounter Summary ---
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 nicotine (Nicoderm CQ) 21 MG/24HR patch 1 Patch 1 Patch, Transdermal, ONCE, 1 dose, On 04/19/25 at 1100 * 1202 (Patch Applied - Provider: Shira Nettles RN) * 1344 (Due: Patch Removed - Provider: Automatic Discharge Provider - Comment: Time automatically adjusted from order being discontinued) Medication Order OLANZapine (ZyPREXA Zydis) disintegrating tablet 5 mg(Linked Group 1) 5 mg, Oral, EVERY 6 HOURS NEEDED, Starting on 04/18/25 at 1532, Until 04/19/25 at 1551, Other, For agitation. OLANZapine (Zyprexa) injection 5 mg(Linked Group 1) 5 mg, Intramuscular, EVERY 6 HOURS NEEDED, Starting on 04/18/25 at 1532, Until 04/19/25 at 1551, Agitation Order Group 1: OLANZapine (Zyprexa) injection 5 mgJump to med 5 mg, Intramuscular, EVERY 6 HOURS NEEDED, Starting on 04/18/25 at 1532, Until 04/19/25 at 1551, Agitation Or OLANZapine (ZyPREXA Zydis) disintegrating tablet 5 mgJump to med 5 mg, Oral, EVERY 6 HOURS NEEDED, Starting on 04/18/25 at 1532, Until 04/19/25 at 1551, Other, For agitation. documented in this encounter Orders Medications Ordered That Might Not Have Been AdministeredCountLast Ordered Date First Ordered DateOLANZapine (ZyPREXA Zydis) disintegrating tablet 5 mg1 04/18/2025OLANZapine (Zyprexa) injection 5 mgNursingCountLast Ordered DateFirst Ordered DateUPDATE LEVEL OF CARE - ED BOARDER [id number] CountLast Ordered DateFirst Ordered DateED SALT MANAGER [id number] PHARMACIST TO COLLECT MEDICATION [id number] in this encounter Care Teams Team MemberRelationshipSpecialtyStart DateEnd Date Elsewhere, Pcp PCP - General07/18/01documented as of this encounter
--- OUTSIDE RECORDS SUMMARY | 2025-05-06 20:14 | XMS_ITS | Clinical Summary ---
Author Organization [facility] Address [address] [place] [address] Care Team Providers Care Dental Insurance Biller Name Role Phone Unavailable Primary Care Provider [...] for each transition of care or referral. [facility] docobites Allergies Active AllergyReactionsCriticalityNoted VjwzSelrmxodZfyzezpkWnqt18/26/2024 Medications No known medications Active Problems ProblemNoted DateDiagnosed DateHand injury, right, hfqjvdy9504/02/2024 Schizoaffective disorder, bipolar type04/01/2024 Social History Tobacco UseTypesPacks/DayYears UsedDateSmoking Tobacco: Never Assessed[facility] UtilitiesAnswerDate RecordedIn the past 12 months has the [place], gas, oil, or water [employer] threatened to shut off services in your home?Patient declined 04/02/2024Humiliation, Afraid, Rape, and Kick questionnaireAnswerDate Recorded Within the last year, have you been afraid of your partner or ex-partner?Patient xucaugge55/27/2024Within the last year, have you been humiliated or emotionally abused in other ways by your partner or ex-partner?Patient /27/2024 Within the last year, have you been kicked, hit, slapped, or otherwise physically hurt by your partner or ex-partner?Patient uwqfccia94/27/2024Within the last year, have you been raped or forced to have any kind of sexual activity by your partner or ex-partner?Patient bdptofye29/27/2024Hunger Vital SignAnswer Date RecordedWithin the past 12 months, you worried that your food would run out before you got the money to buymore.Patient bmzsvpet52/27/2024Within the past 12 months, the food you bought just didn't last and you didn't have money to get more.Patient pilgjkjx29/27/2024RAPARE - TransportationAnswerDate RecordedIn the past 12 months, has lack of transportation kept you from medical appointments or from getting medications?Patient ebyaxcxj22/27/2024In the past 12 months, has lack of transportation kept you from meetings, work, or from getting things needed for daily living?Patient zybxdmnc14/27/2024Housing Stability Vital Sign AnswerDate RecordedIn the last 12 months, was there a time when you were not able to pay the mortgage or rent on time?Patient wacjvbvd14/27/2024Number of Times Moved in the Last YearNot on file04/02/2024t any time in the past 12 months, were you homeless or living in a half-way (including now)?Patient ppejrgew96/27/2024Sex and Gender InformationValueDate RecordedSex Assigned at BirthNot on fileLegal QjpRsls47/26/2024 12:23 PM CSTGender IdentityNot on file Sexual OrientationNot on file Last Filed Vital Signs Vital SignReadingTime TakenCommentsBlood Zbktwuue490/6404/15/2024 8:00 AM STRATEGY ASSOCIATE Hvwms204604/15/2024 8:00 AM WAZVqwbyxyvpig36.5 ??C (97.7 ??F)04/15/2024 8:00 AM CSTRespiratory Vcxw342106/16/2023 8:00 AM CSTOxygen Fzbwvwtcgv267%04/15/2024 8:00 AM CSTInhaled Oxygen Concentration--Dofkyp57.3 kg (181 lb 6.4 oz)04/13/2024 8:00 AM QUCOssjze344.7 cm (5' 8)04/01/2024 5:05 PM CSTBody Mass Index27.5804/01/2024 5:05 PM STRATEGY ASSOCIATE Plan of Treatment Health MaintenanceDue DateLast DoneCommentsHep C Screening (Preventive Services) 1990HIV Screening (Preventive Services)2006dult Preventive Visit 02/04/2009HepB Vaccine (1)2009HPV Vaccine (2 - 3-dose SCDM series) 4COVID-19 Vaccine (1 - 2024- season)2025Influenza Vaccine (#1)DTaP/Tdap/Td Vaccine (8 - Tdap)05/22/2026 05/22/2016, 09/03/2007, 01/19/1995, Additional history existsZoster/Shingles Vaccine (1 of 2)2040Hib AihbbyoFsudostti77/27/1992, 05/19/1991, 01/13/1991, Additional history existsIPV (Polio) SdshecdOfmfmtaux17/15/1995, 03/02/1992, 1990, Additional history existsMCV4 XdblacfQpnrosxut08/29/2008 Pneumococcal VaccineAged Out03/22/2016No longer eligible based on patient's age to complete this topicHepA VaccineAged Out04/28/2016, 10/28/2015No longer eligible based on patient's age to complete this topicMeningococcal B Vaccine Aged OutNo longer eligible based on patient's age to complete this topic Insurance Advance Directives * Full Code (Latest Code Status on File) Date ActivatedDate HoxliqfdsufZppjfxyb19/26/2024 4:17 PM04/15/2024 5:43 PM
--- OUTSIDE RECORDS SUMMARY | 2025-05-06 20:14 | XMS_ITS | Encounter Summary ---
Author Organization [facility] Address [address] [place] [id number] Phone Care Team Providers Care Basket Patcher Name Role Phone Elsewhere, Pcp Primary Care Provider Unavailabl e Encounter Details DateTypeDepartmentCare Team (Latest Contact Info)Ofszlrupptv18/13/2025Travel Social History Tobacco UseTypesPacks/DayYears UsedDateSmoking Tobacco: Every DayCigarettes0.56 Started: 2019Smokeless Tobacco: NeverAlcohol UseStandard Drinks/WeekCommentsYes0 (1 standard drink = 0.6 oz pure alcohol)occasionalAUDIT-CAnswerDate RecordedQ1: How often do you have a drink containing alcohol?Never04/19/2025Q2: How many drinks containing alcohol do you have on a typical day when you are drinking? Patient does not drink04/19/2025Q3: How often do you have six or more drinks on one occasion?Never04/19/2025Hunger Vital SignAnswerDate RecordedWithin the past 12 months, you worried that your food would run out before you got the money to buymore.Sometimes true04/19/2025Within the past 12 months, the food you bought just didn't last and you didn't have money to get more.Sometimes true04/19/2025 PRAPARE - TransportationAnswerDate RecordedIn the past 12 months, has lack of transportation kept you from medical appointments or from getting medications? Yes04/19/2025In the past 12 months, has lack of transportation kept you from meetings, work, or from getting things needed for daily living?Yes04/19/2025 Housing Stability Vital SignAnswerDate RecordedIn the last 12 months, was there a time when you were not able to pay the mortgage or rent on time?Yes04/19/2025 In the past 12 months, how many times have you moved where you were living?2 04/19/2025t any time in the past 12 months, were you homeless or living in a [place] (including now)?Yes04/19/2025HC UtilitiesAnswerDate RecordedIn the past 12 months has the electric, gas, oil, or water company threatened to shut off services in your home?Yes04/19/2025EH IP Custom IPVAnswerDate RecordedDo you feel UNSAFE in any of your personal relationships with your family members or any other acquaintances?Yes04/19/2025Sex and Gender InformationValueDate RecordedSex Assigned at GdopyZnhv26/27/2022 10:07 PM CDTLegal DdzOzfo4706/16/2012 2:00 AM CSTGender AssgxiqpKdoq88/27/2022 10:07 PM CDTSexual OrientationStraight 04/19/2025 4:12 PM CSTdocumented as of this encounter Functional Status * Patient's Vision Adequate to Safely Complete Daily ActivitiesAnswerDate of SjvenrzikhHjokkyUig21/13/2025 2:24 PM Gloria Veliz RN * Patient's Memory Adequate to Safely Complete Daily ActivitiesAnswerDate of HyqaxsnelvEpdorfWgl92/13/2025 2:24 PM Gloria Veliz RN documented as of this encounter Mental Status * Patient's Judgment Adequate to Safely Complete Daily ActivitiesAnswerEntry RnznWmnimnSyw03/13/2025 2:24 PM Gloria Veliz RN documented in this encounter Plan of Treatment Not on file documented as of this encounter Visit Diagnoses Not on filedocumented in this encounter Care Teams Team MemberRelationshipSpecialtyStart DateEnd Date Elsewhere, Pcp PCP - General07/18/01documented as of this encounter
--- OUTSIDE RECORDS SUMMARY | 2025-05-06 20:14 | XMS_ITS | Encounter Summary ---
Author Organization [facility] Address [address] [place] [id number] Phone Care Team Providers Care Student Life Dean Name Role Phone Elsewhere, Pcp Primary Care Provider Unavailabl e Encounter Details DateTypeDepartmentCare Team (Latest Contact Info)Wnqssyrfhqr61/26/2025Travel Social History Tobacco UseTypesPacks/DayYears UsedDateSmoking Tobacco: Every [...] before you got the money to buymore.Patient tpskapfs62/11/2025Within the past 12 months, the food you bought just didn't last and you didn't have money to get more.Patient jkzgjuai69/11/2025PRAPARE - TransportationAnswerDate RecordedIn the past 12 months, has lack of transportation kept you from medical appointments or from getting medications? Patient epexafrb63/11/2025In the past 12 months, has lack of transportation kept you from meetings, work, or from getting things needed for daily living?Patient rlnzqelo19/11/2025Housing Stability Vital SignAnswerDate RecordedIn the last 12 months, was there a time when you were not able to pay the mortgage or rent on time?Patient qrmkiepz78/11/2025In the past 12 months, how many times have you moved where you were living?t any time in the past 12 months, were you homeless or living in a skilled nursing (including now)?Patient sxztkmpu93/11/[address] [facility] UtilitiesAnswerDate RecordedIn the past 12 months has the electric, gas, oil, or water company threatened to shut off services in your home?Patient sibiwudr03/11/2025 IP Custom IPVAnswerDate RecordedDo you feel UNSAFE in any of your personal relationships with your family members or any other acqua intances?No04/02/2025Sex and Gender InformationValueDate RecordedSex Assigned at EzugeXycd99/27/2022 10:07 PM CDTLegal FdtGppa0206/16/2012 2:00 AM CSTGender OtyauhvmWqde38/27/2022 10:07 PM CDTSexual RcffuebjvuvLajofuxj09/14/2025 4:12 PM CSTdocumented as of this encounter Functional Status * Patient's Vision Adequate to Safely Complete Daily ActivitiesAnswerDate of PvgzblajgbRhfmkxCdz53/11/2025 1:15 PM Angelina Naidu RN * Patient's Memory Adequate to Safely Complete Daily ActivitiesAnswerDate of VnydcoypjaOimvfmNlx85/11/2025 1:15 PM Angelina Naidu RN documented as of this encounter Mental Status * Patient's Judgment Adequate to Safely Complete Daily ActivitiesAnswerEntry ImbpLxfqoaTdd50/11/2025 1:15 PM Angelina Naidu RN documented in this encounter Plan of Treatment Not on file documented as of this encounter Visit Diagnoses Not on filedocumented in this encounter Additional Health Concerns InfectionOnset DateLast IndicatedResolved TimeR/O Respiratory Pathogens 7:18 PM CSTR/O COVID-19104/01/2025 7:18 PM CSTdocumented as of this encounter Care Teams Team MemberRelationshipSpecialtyStart DateEnd Date Elsewhere, Pcp PCP - General07/18/01documented as of this encounter
--- OUTSIDE RECORDS SUMMARY | 2025-05-06 20:14 | XMS_ITS | Encounter Summary ---
Author Organization [facility] Address [address] [place] [phone] Phone Care Team Providers Care Thread Laster Name Role Phone Elsewhere, Pcp Primary Care Provider Unavailabl e Encounter Details DateTypeDepartmentCare Team (Latest Contact Info)Hrtfnwlevir03/14/2025Travel Social History Tobacco UseTypesPacks/DayYears UsedDateSmoking Tobacco: Every [...] or living in a nursing home (including now)?Yes04/19/2025HC UtilitiesAnswerDate RecordedIn the past 12 months has the electric, gas, oil, or water company threatened to shut off services in your home?Yes04/19/2025EH IP Custom IPVAnswerDate RecordedDo you feel UNSAFE in any of your personal relationships with your family members or any other acquaintances?Yes04/19/2025Sex and Gender InformationValueDate RecordedSex Assigned at NqekgEjoz19/27/2022 10:07 PM CDTLegal ObpJjcf3606/16/2012 2:00 AM CSTGender JmttwdygWxnk29/27/2022 10:07 PM CDTSexual OrientationStraight 04/19/2025 4:12 PM CSTdocumented as of this encounter Functional Status * Patient's Vision Adequate to Safely Complete Daily ActivitiesAnswerDate of LujllzkvciBejpvgAxy10/14/2025 4:21 PM Alivia Willams RN * Patient's Memory Adequate to Safely Complete Daily ActivitiesAnswerDate of LkydduhqjfZvhmdcXjy05/14/2025 4:21 PM Alivia Willams RN documented as of this encounter Mental Status * Patient's Judgment Adequate to Safely Complete Daily ActivitiesAnswerEntry DimlTgssjkMdb56/14/2025 4:21 PM Alivia Willams RN documented in this encounter Plan of Treatment Not on file documented as of this encounter Visit Diagnoses Not on filedocumented in this encounter Care Teams Team MemberRelationshipSpecialtyStart DateEnd Date Elsewhere, Pcp PCP - General07/18/01documented as of this encounter
--- OUTSIDE RECORDS SUMMARY | 2025-05-06 20:14 | XMS_ITS | Encounter Summary ---
Author Organization [facility] Address [address] [address] Phone Care Team Providers Care Tire Servicer Name Role Phone Elsewhere, Pcp Primary Care Provider Unavailabl e Reason for Visit * ReasonOnset DateCommentsChest Pain04/01/2025 Encounter Details DateTypeDepartmentCare Team (Latest Contact Info)Pwfgiyzibbm16/26/2025Nurse Triage [facility] [address] [place] [address] Kadie Lewis RN Chest Pain Social History Tobacco UseTypesPacks/DayYears UsedDateSmoking Tobacco: Every [...] before you got the money to buymore.Patient uprrcsoo36/11/2025Within the past 12 months, the food you bought just didn't last and you didn't have money to get more.Patient auumdymo44/11/2025PRAPARE - TransportationAnswerDate RecordedIn the past 12 months, has lack of transportation kept you from medical appointments or from getting medications? Patient ilerqnwj61/11/2025In the past 12 months, has lack of transportation kept you from meetings, work, or from getting things needed for daily living?Patient vehgbjnj72/11/2025Housing Stability Vital SignAnswerDate RecordedIn the last 12 months, was there a time when you were not able to pay the mortgage or rent on time?Patient bwyvopyc46/11/2025In the past 12 months, how many times have you moved where you were living?t any time in the past 12 months, were you homeless or living in a care home (including now)?Patient oyeiakxg39/11/2025 [facility] UtilitiesAnswerDate RecordedIn the past 12 months has the [employer], gas, oil, or water company threatened to shut off services in your home?Patient hoonrram66/11/2025EH IP Custom IPVAnswerDate RecordedDo you feel UNSAFE in any of your personal relationships with your family members or any other acqua intances?No04/02/2025Sex and Gender InformationValueDate RecordedSex Assigned at JucxaEymp79/27/2022 10:07 PM CDTLegal PzaLqty4106/16/2012 2:00 AM CSTGender WxmneabpNfcl04/27/2022 10:07 PM CDTSexual VihugupcykfIwfovpkv59/14/2025 4:12 PM CSTdocumented as of this encounter Functional Status * Patient's Vision Adequate to Safely Complete Daily ActivitiesAnswerDate of MbfmtawsopHhadruIrt49/11/2025 1:15 PM Angelina Naidu RN * Patient's Memory Adequate to Safely Complete Daily ActivitiesAnswerDate of SfeyhswpjjExqhalGjy01/11/2025 1:15 PM Angelina Naidu RN documented as of this encounter Mental Status * Patient's Judgment Adequate to Safely Complete Daily ActivitiesAnswerEntry IqdnSdukggDsd44/11/2025 1:15 PM Angelina Naidu RN documented in this encounter Miscellaneous Notes * Telephone Encounter - Kadie Lewis RN - 04/01/2025 5:48 PM CST Intake and Output Assessment No data filed Reason for Conversation Chest Pain Protocols Used Chest Pain-A-[place] Reason for Disposition Chest pain lasting longer than 5 minutes, over 30 years old, and at least one cardiac risk factor (e.g., diabetes mellitus, high blood pressure, high cholesterol, obesity with BMI 30 or higher, smoker, or strong family history of heart disease) Chest pain lasting longer than 5 minutes and history of heart disease (i.e., angina, heart attack, heart failure, bypass surgery, takes nitroglycerin) No Additional Information on file. Disposition Call 911 now S MANAGER * Telephone Encounter - Kadie Lewis RN - 04/01/2025 5:37 PM CST Intake and Output Assessment No data filed Pt reporting L chest pain @ rest, SOB, feeling his blood is not circulating properly. Reports feeling like this previously.Started about 45 min ago while walking. Has a history of cardiac issues. Stated he missed appointment this morning. VS, 130/81, 105, 22, 95% on RA, 98.7 F Reason for Conversation Chest Pain Protocols Used Chest Pain-A-OH Reason for Disposition Chest pain lasting longer than 5 minutes, over 30 years old, and at least one cardiac risk factor (e.g., diabetes mellitus, high blood pressure, high cholesterol, obesity with BMI 30 or higher, smoker, or strong family history of heart disease) Chest pain lasting longer than 5 minutes and history of heart disease (i.e., angina, heart attack, heart failure, bypass surgery, takes nitroglycerin) No Additional Information on file. Disposition Call 911 now 911 was called and pt was transported to [facility] via EMS S MANAGER * Telephone Encounter - Kadie Lewis RN - 04/01/2025 5:11 PM CST Intake and Output Assessment No data filed Reason for Conversation Chest Pain Protocols Used Chest Pain-A-[place] Reason for Disposition Chest pain lasting longer than 5 minutes, over 30 years old, and at least one cardiac risk factor (e.g., diabetes mellitus, high blood pressure, high cholesterol, obesity with BMI 30 or higher, smoker, or strong family history of heart disease) Chest pain lasting longer than 5 minutes and history of heart disease (i.e., angina, heart attack, heart failure, bypass surgery, takes nitroglycerin) No Additional Information on file. Disposition Call 911 now S MANAGER documented in this encounter Plan of Treatment Not on file documented as of this encounter Visit Diagnoses Not on filedocumented in this encounter Care Teams Team MemberRelationshipSpecialtyStart DateEnd Date Elsewhere, Pcp PCP - General07/18/01documented as of this encounter
--- OUTSIDE RECORDS SUMMARY | 2025-05-06 20:14 | XMS_ITS | Clinical Summary ---
Author Organization [facility] Address [facility] [place] [address] Care Team Providers [employer] Name Role Phone Devon Thompson DO Primary Care Provider [phone] Devon Thompson DO Unavailable Allergies Active AllergyReactionsCriticalityNoted WgamBxlkvdmjGrkfbzljsfErevnqyv44/11/2022 Sodium MmsikmvluthkAtfoZkm21/11/2022 Medications MedicationSigDispense QuantityRefillsLast FilledStart DateEnd DateStatus divalproex sodium extended-release (DEPAKOTE ER) 500 MG 24 hr tablet Indications:Schizoaffective disorder, bipolar type (H)Take 4 tablets (2,000 mg) by mouth at bedtime for 30 days 120 tablet 4Active Active Problems ProblemNoted DateDiagnosed DateAcute dvlrjivmm38/03/3525Brlse30/22/2023Insomnia due to other mental dqusfknm73/22/2023Schizoaffective disorder, bipolar type 01/01/20222436Cufjipwtkofkrk69/10/4651Dwvqwmfn11/10/2022Generalized anxiety disorder 12/25/2017 Immunizations ImmunizationAdministration DatesNext DueDTAP (<7y)01/19/1995,03/02/1992, 01/13/1991,1990,1990HIB(PRP-OMP)(PedvaxHIB)03/02/1992,05/19/1991, 01/13/1991,1990HPV9 (Gardasil)05/22/2023Hepatitis A (VAQTA)(ADULT 19+) 04/28/2016,10/28/2015Hepatitis B, Peds (Engerix-B/Recombivax HB)09/03/2007, 07/27/1995,01/19/1995Historical DTP/aP01/13/1991,1990,1990Influenza Vaccine >6 months,quad, PF03/22/2016MMR (MMRII)01/19/1995,03/02/1992 Meningococcal ACWY (Menactra??)09/03/2007OPV, trivalent, live01/19/1995, 03/02/1992,1990,1990Pneumococcal 23 smnwoi8703/22/2016TDAP (Adacel,Boostrix)09/03/2007TDAP Vaccine (Adacel)05/22/2016Varicella (Varivax) 07/27/1995 Family History RelationStatusCommentsFatherAliveMotherDeceased Social History Tobacco UseTypesPacks/DayYears UsedDateSmoking Tobacco: Some DaysCigarsVaping DeviceSmokeless Tobacco: FormerChew Tobacco Cessation:Ready to Q uit: Not Asked; Counseling Given: Not Answered Comments:Quit cigs a couple years ago, was 1 ppd x4-5 yrs, now vaping Passive Exposure Comments:loon max vapeAlcohol UseStandard Drinks/WeekCommentsNo 0 (1 standard drink = 0.6 oz pure alcohol)PHQ-2AnswerDate RecordedPHQ-2 Score0 02/15/2022dolescent EducationAnswerDate RecordedGetting School Help NeededNot on file01/26/2023Food InsecurityAnswerDate RecordedWithin the past 12 months, did you worry that your food would run out before you got money to buy more?No 05/22/2023Within the past 12 months, did the food you bought just not last and you didn???t have money to getmore?No05/22/2023Housing StabilityAnswerDate RecordedDo you have housing? (Housing is defined as stable permanent housing and does not include staying outside in a car, in a tent, in an abandoned building, in an overnight chcf, or couch-surfing.)No05/22/2023re you worried about losing your housing?No05/22/2023Financial Resource StrainAnswerDate Recorded Within the past 12 months, have you or your family members you live with been unable to get utilities (heat, electricity) when it was really needed?No 05/22/2023Transportation NeedsAnswerDate RecordedWithin the past 12 months, has lack of transportation kept you from medical appointments, getting your medicines, non-medical meetings or appointments, work, or from getting things that you need?No05/22/2023Interpersonal SafetyAnswerDate RecordedDo you feel physically and emotionally safe where you currently live?Yes05/22/2023Within the past 12 months, have you been hit, slapped, kicked or otherwise physically hurt by someone?No05/22/2023Within the past 12 months, have you been humiliated or emotionally abused in other ways by your partner or ex-partner?No05/22/2023Sex and Gender InformationValueDate RecordedSex Assigned at BirthNot on fileLegal XtdXcdm8706/27/2012 1:21 AM CSTGender IdentityNot on fileSexual OrientationNot on file Last Filed Vital Signs Vital SignReadingTime TakenCommentsBlood Lcbknjuo906/66010/18/2023 6:00 AM CDT Owomk527510/18/2023 6:00 AM LRVArxokfgnank12.3 ??C (97.3 ??F)10/18/2023 6:00 AM CDTRespiratory Ijof256410/18/2023 6:00 AM CDTOxygen Hvzgmiwrud23%10/18/2023 6:00 AM CDTInhaled Oxygen Concentration--Znmqmj23.1 kg (176 lb 8 oz)10/13/2023 7:00 AM TVEOsqfgk767.7 cm (5' 8)10/08/2023 3:56 AM CDTBody Mass Index26.8410/08/2023 3:56 AM CDT Plan of Treatment Health MaintenanceDue DateLast DoneCommentsADVANCE CARE KIYDLXPO96/04/1991ANNUAL REVIEW OF HM [id number] 1990YEARLY PREVENTIVE VISIT07/04/HPV VACCINE (2 - 3-dose SCDM series)4PHQ-2 (once per calendar year), 02/15/2022, 10/11/2016COVID-19 VACCINE (1 - season)2025INFLUENZA VACCINE (#1)DTAP/TDAP/TD VACCINE (8 - Td or Tdap), 09/03/2007, 01/19/1995, Additional history existsZOSTER VACCINE (1 of 2)2040HEPATITIS B SOZLFMKZcdpwabqe33/29/2008, 07/27/1995, 01/19/1995MENINGITIS TKWWSROCmywgqrov21/29/2008PNEUMOCOCCAL VACCINE: PEDIATRICS (0 to 5 YEARS) AND AT-RISK PATIENTS (6 to 49 YEARS)Aged Out03/22/2016 No longer eligible based on patient's age to complete this topicHEPATITIS C RBWGWZYSCUjswciwmb81/09/2024, 10/14/2023, 03/05/2018, Additional history exists HIV JDBGKCRWQYcjzhttvo16/09/2024, 03/05/2018, 03/05/2018 Procedures Procedure NamePriorityDate/TimeAssociated DiagnosisCommentsHIV ANTIGEN ANTIBODY UMPPKCwrmusi68/09/2024 10:42 AM CDT HEPATITIS C SCREEN REFLEX TO HCV RNA QUANT AND UIFHEWKEMentbqy28/09/2024 10:42 AM CDT from Last 3 Months or Most Recently Relevant to Health Maintenance Results * HIV Antigen Antibody Combo [facility] (10/14/2023 10:42 AM CDT)ComponentValueRef RangeTest MethodAnalysis TimePerformed AtPathologist SignatureHIV Antigen Antibody NvnosJvjhwdjhkgwSfnwcxzfbub98/09/2024 6:53 PM CDTUU LABORATORY Comment:Negative HIV-1 p24 antigen and HIV-1/2 antibody screening test results usually indicate the absenceof HIV-1 and HIV-2 infection. However, such negative results do not rule-out acute HIV infection. If acute HIV-1 or HIV-2 infection is suspected, detection of HIV-1 or HIV-2 RNA is recommended. Specimen (Source)Anatomical Location / LateralityCollection Method / Volume Collection TimeReceived TimeBloodSTRUCTURE OF LEFT UPPER LIMB / Unknown Venipuncture / Gkifrin2810/14/2023 10:42 AM CDT10/14/2023 10:46 AM CDT Narrative Authorizing ProviderResult TypeResult StatusTeresa Reder CNPLAB - BLOOD ORDERABLESFinal ResultPerforming OrganizationAddressCity/State/ZIP CodePhone Number LABORATORY [facility] [address] [facility], [address] [phone] * (ABNORMAL) Hepatitis C Screen Reflex to HCV RNA Quant and Genotype (10/14/2023 10:42 AM CDT)ComponentValueRef RangeTest MethodAnalysis TimePerformed At [facility] SignatureThe [facility] Systemtis C AntibodyReactive(A)Pwxgtbkfvma45/09/2024 6:49 PM CDTUU LABORATORYComment: The detection of anti-HCV antibodies indicates a [...] HCV infection, or false HCV antibody positivity. Specimen (Source)Anatomical Location / LateralityCollection Method / Volume Collection TimeReceived TimeBloodSTRUCTURE OF LEFT UPPER LIMB / Unknown Venipuncture / Wuimcgr0710/14/2023 10:42 AM CDT10/14/2023 10:46 AM CDT Narrative Authorizing ProviderResult TypeResult StatusTeresa Red CNPLAB - BLOOD ORDERABLESFinal ResultPerforming OrganizationAddressCity/State/ZIP CodePhone Number LABORATORY [facility] [address] [facility], [address] [phone] from Last 3 Months or Most Recently Relevant to Health Maintenance Insurance * Guarantor: Trevor Smith TypeRelation to PatientDate of BirthPhone Billing AddressPersonal/IuuednDrmx49/04/1991 [address] [place] [address] * Guarantor: WAINWRIGHT Delmer SÁNCHEZ TypeRelation to PatientDate of PhoneBilling AddressSpecial GuarantorOther [address] [place] [address] [place] [address] * Guarantor: Trevor Smith TypeRelation to PatientDate of BirthPhone Billing AhogypjDzdyopeoreDhyw95/04/1991 [address] [place] [address] Advance Directives For more information, please contact: [phone] * Full Code (Latest Code Status on File) Date ActivatedDate InactivatedComments10/08/2023 3:58 AM10/18/2023 2:40 PMAll basic and advanced life-sustaining interventions are performed as appropriateQuestion AnswerCommentsCode status determined by:* Discussion with patient/ legal decision maker * Full Code Date ActivatedDate ZpsqwnpzkjgHmdsgeab43/26/2023 10:10 AM05/15/2023 12:03 PMAll basic and advanced life-sustaining interventions are performed as appropriate QuestionAnswerCommentsCode status determined by:* Discussion with patient/ legal decision maker * Full Code Date ActivatedDate ZcekrueenwpUlaeuczp17/22/2023 5:50 PM05/01/2023 10:09 AMAll basic and advanced life-sustaining interventions are performed as appropriate QuestionAnswerCommentsCode status determined by:* Unable to determine; FULL CODE until documents or legal decision maker available * Full Code Date ActivatedDate InactivatedComments12/15/2021 12:39 AM12/27/2021 4:07 PMAll basic and advanced life-sustaining interventions are performed as appropriate QuestionAnswerCommentsCode status determined by:* Other (please document) Care Teams Team MemberRelationshipSpecialtyStart DateEnd Date Devon Thompson DO [address] [id number] PCP [facility]02/16/22 Devon Thompson DO [address] [address] Assigned PCP02/18/22
--- OUTSIDE RECORDS SUMMARY | 2025-05-06 20:15 | XMS_ITS | Clinical Summary ---
Author Organization [facility] Address [address] [address] Phone Care Team Providers Care Bible Reader Name Role Phone Elsewhere, Pcp Primary Care Provider Unavailabl e Allergies No known active allergies Medications * This document contains information received from the source organization and may not represent a complete record from that organization. MedicationSigDispense QuantityRefillsLast FilledStart DateEnd DateStatus acetaminophen (TYLENOL) 325 MG tablet Take 2 Tablets by mouth every four hours as needed for Pain (minor pain or fever). Do not exceed 4 grams in 24 hours.5Active acetaminophen (Tylenol) 650 MG suppository Unwrap and insert 1 Suppository into the rectum every four hours as needed for Fever (minor pain orfever). Do not Exceed 4 grams in 24 hours.5Active magnesium hydroxide (Milk of Magnesia) 400 MG/5ML oral suspension Take 30 mL by mouth one time a day as needed for Constipation. Liquid doses may be diluted with a small amount of water prior to taking.5Active aluminum-magnesium hydroxide (Maalox) 200-200 MG/5ML oral suspension Take 30 mL by mouth every hour as needed for Heartburn (gastric distress). Maximum 12 doses in 24 hours.5Active bisacodyl (Dulcolax) 10 MG suppository Unwrap and insert 1 Suppository into the rectum one time a day as needed for Constipation.5Active hydrOXYzine HCl (Atarax) 25 MG tablet Take 1-2 Tablets by mouth every six hours as needed for Other (Anxiety / Mild Agitation). 90 Tablet 5Active melatonin 3 MG tablet Take 1 Tablet by mouth at bedtime as needed for Sleep. 30 Tablet 5Active OLANZapine (ZyPREXA) 10 MG tablet Take 1 Tablet by mouth one time a day as needed for Sleep, Anxiety or Other (Paranoia). 30 Tablet 5Active Active Problems ProblemNoted DateDiagnosed DateTobacco use tymqifdl62/15/2025Methamphetamine use disorder, severe, jyppvlambf69/28/2025 Assessment & Plan (04/08/2025 9:32 AM ANALYTICS ASSOCIATE): Offer CD treatment Assessment & Plan (04/07/2025 9:48 AM ANALYTICS ASSOCIATE): Offer CD treatment Assessment & Plan (04/06/2025 8:38 AM ANALYTICS ASSOCIATE): Offer CD treatment Assessment & Plan (04/05/2025 4:52 PM ANALYTICS ASSOCIATE): Offer CD treatment Assessment & Plan (04/04/2025 1:46 PM ANALYTICS ASSOCIATE): Offer CD treatment Assessment & Plan (04/03/2025 10:11 PM ANALYTICS ASSOCIATE): Offer CD treatment Cannabis abuse04/03/2025 Assessment & Plan (04/08/2025 9:32 AM ANALYTICS ASSOCIATE): Manage withdrawal supportively Assessment & Plan (04/07/2025 9:48 AM ANALYTICS ASSOCIATE): Manage withdrawal supportively Assessment & Plan (04/06/2025 8:38 AM ANALYTICS ASSOCIATE): Manage withdrawal supportively Assessment & Plan (04/05/2025 4:52 PM ANALYTICS ASSOCIATE): Manage withdrawal supportively Assessment & Plan (04/04/2025 1:46 PM ANALYTICS ASSOCIATE): Manage withdrawal supportively Assessment & Plan (04/03/2025 10:11 PM ANALYTICS ASSOCIATE): Manage withdrawal supportively Acute hzjgfueqdzn00/12/2025 Assessment & Plan (03/18/2025 7:03 PM ANALYTICS ASSOCIATE): Appreciate cardiology consultation, evaluation, recommendations, now signed off. Suspect acute myocardial injury in the setting of mild myocarditis suspected in relationship to amphetamine use. 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 - Evidence of very MILD myocarditis on cardiac MRI. Cardiac CTA with normal coronary arteries. - CRP < 0.1 - NSAIDs PRN for chest pain, PRN Ibuprofen ordered Myocardial njeccp3703/17/2025 Assessment & Plan (03/18/2025 7:03 PM ANALYTICS ASSOCIATE): Appreciate cardiology consultation, evaluation, recommendations, now signed off. Suspect acute myocardial injury in the setting of mild myocarditis suspected in relationship to amphetamine use. 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 - Evidence of very MILD myocarditis on cardiac MRI. Cardiac CTA with normal coronary arteries. - CRP < 0.1 - NSAIDs PRN for chest pain, PRN Ibuprofen ordered Assessment & Plan (03/17/2025 1:08 PM ANALYTICS ASSOCIATE): - Troponin peak 75.7 - TTE LVEF 68% - Cardiology consult for further restratification - Patient received aspirin load at the ED, no indication for starting heparin drip at this time Polysubstance abuse03/17/2025 Assessment & Plan (03/18/2025 7:03 PM ANALYTICS ASSOCIATE): UDS +ve amphetamine, THC. Patient denies any substance use, agreeable to nicotine patch. Possible amphetamine exposure from recreationally obtained THC products Assessment & Plan (03/18/2025 11:39 AM ANALYTICS ASSOCIATE): - The patient has a myocardial injury, acute (troponin rise and/or fall) due to acute toxic myocarditis secondary to drug use. - Evidence of very MILD myocarditis on cardiac MRI. Cardiac CTA with normal coronary arteries. - CRP < 0.1 - NSAIDs PRN for chest pain, PRN Ibuprofen ordered Assessment & Plan (03/17/2025 1:08 PM ANALYTICS ASSOCIATE): UDS +ve amphetamine, THC. Patient denies any substance use, agreeable to nicotine patch Acute jftocpzcm96/03/2024 Assessment & Plan (04/08/2025 9:32 AM ANALYTICS ASSOCIATE): See above Assessment & Plan (04/07/2025 9:48 AM ANALYTICS ASSOCIATE): See above Assessment & Plan (04/06/2025 8:38 AM ANALYTICS ASSOCIATE): See above Assessment & Plan (04/05/2025 4:52 PM ANALYTICS ASSOCIATE): See above Assessment & Plan (04/04/2025 1:46 PM ANALYTICS ASSOCIATE): See above Assessment & Plan (04/03/2025 10:11 PM ANALYTICS ASSOCIATE): See above Insomnia due to other mental /22/1538Sqaxc33/22/2023Schizoaffective disorder, bipolar type01/01/2022 Assessment & Plan (04/08/2025 5:30 PM ANALYTICS ASSOCIATE): Olanzapine PRN. Prazosin 1 mg HS for nightmares. Assessment & Plan (04/07/2025 5:46 PM ANALYTICS ASSOCIATE): Olanzapine. Increase to 20 mg. Prazosin 1 mg HS for nightmares. Assessment & Plan (04/06/2025 6:45 PM ANALYTICS ASSOCIATE): Olanzapine. Add prazosin 1 mg HS for nightmares. Assessment & Plan (04/05/2025 4:52 PM ANALYTICS ASSOCIATE): Olanzapine Assessment & Plan (04/04/2025 1:46 PM ANALYTICS ASSOCIATE): Olanzapine Assessment & Plan (04/03/2025 10:11 PM ANALYTICS ASSOCIATE): Olanzapine Assessment & Plan (03/18/2025 7:03 PM ANALYTICS ASSOCIATE): Patient reports not taking any medications for this. On chart review he was admitted back in March 2024 for acute exacerbation of schizoaffective disorder. Endorses significant anxiety. - Needs to establish care with PCP following discharge - Safe discharge planning as above to medical respite house 03/19 Assessment & Plan (03/17/2025 1:08 PM ANALYTICS ASSOCIATE): Patient reports not taking any medications for this. On chart review he was admitted back in March 2024 for acute exacerbation of schizoaffective disorder. Pbvrbwcegjoueh16/10/8571Gyzpqimh19/10/2022Generalized anxiety ebaximsv06/21/2018 Resolved Problems ProblemNoted DateDiagnosed DateResolved ZwsiRsjsgndzllp33/11/334881/04/2025 Assessment & Plan (03/17/2025 12:20 PM ANALYTICS ASSOCIATE): Monitor and replete as needed Encounters * This document contains information received from the source organization and may not represent a complete record from that organization. DateTypeDepartmentCare ZfdlZdiyjkzjpgp22/14/9112Tyooir01/13/2025 2:19 PM ANALYTICS ASSOCIATE - 04/19/2025 1:44 PM CSTEmergency [facility] [address] [place] [address] Juan Jose Miranda MD Bettendorf, Joseph A, MD Hughes, Patrick II, MD Paranoia ([facility]) (Primary Dx) Discharge Disposition: [facility] Wlqxxmlx53/13/8652Vdtilc49/08/2025 3:07 PM ANALYTICS ASSOCIATE - 04/14/2025 2:11 PM [facility] EMERGENCY DEPARTMENT [address] [place] [address] [phone] Raleigh Kimbrough, Gary Bettencourt, Louie Altamirano MD Bettendorf, Joseph A, MD Polysubstance abuse (HCC) (Primary Dx) Discharge Disposition: [facility] Sdqsvqks57/08/4801Amdand07/28/2025Travel 04/01/2025 10:13 PM ANALYTICS ASSOCIATE - 04/03/2025 11:16 AM [facility] EMERGENCY DEPARTMENT [address] [place] [address] [phone] Cristiana Raya MD Carlson, Amanda Jo, MD Arvold, Lisa A, MD Drazich, MD Jayde Raman Brett A, Jignesh Li MD Anxiety (Primary Dx); Paranoia (HCC); Marijuana use Discharge Disposition: Admit to Acute Care Dugblwcu37/26/2025 8:36 PM ANALYTICS ASSOCIATE - 04/01/2025 9:36 PM [facility] EMERGENCY DEPARTMENT [address] [place] [address] [phone] Cristiana Raya MD Anxiety (Primary Dx); Marijuana use; Unsheltered homelessness; Polysubstance abuse (HCC) Discharge Disposition: Home and/or Self Care04/01/2025 6:08 PM ANALYTICS ASSOCIATE - 04/01/2025 8:08 PM [facility] EMERGENCY DEPARTMENT [address] [place] [address] [phone] Gary Alvarado MD Chest pain on exertion (Primary Dx); Hx of myocarditis; Elevated brain natriuretic peptide (BNP) level; Marijuana use; Bronchitis Discharge Disposition: Home and/or Self Care04/01/2025 5:00 PM CSTOffice Visit [facility] [address] [place] [phone] Olivia Blum PA-C Chest pain, unspecified type (Primary Dx)04/01/2025Nurse Triage [facility] [address] [place] [address] Kadie Lewis RN Chest Pain04/01/20256554Zentes33/11/2025 12:48 PM ANALYTICS ASSOCIATE - 03/19/2025 2:51 PM ANALYTICS ASSOCIATE Hospital Encounter [facility]Y [address] [place] [phone] Kirsten Be MD Barclay, Zachary T, PA-C Other acute myocarditis (Primary Dx); Generalized anxiety disorder; Polysubstance abuse (HCC); Schizoaffective disorder, bipolar type (HCC); Myocardial injury; Acute psychosis (HCC); Hallucinations; Hypokalemia; Insomnia due to other mental disorder; Noemi (HCC); Paranoia (HCC) Discharge Disposition: Home and/or Self Care03/17/2025 2:13 AM ANALYTICS ASSOCIATE - 03/17/2025 11:26 AM [facility] EMERGENCY DEPARTMENT [address] [place] [phone] Lc Ortega MD NSTEMI (non-ST elevated myocardial infarction) (HCC) (Primary Dx) Discharge Disposition: Admit to [facility] Nudypxuk03/11/0529Xcieud91/10/2025 5:10 AM CSTAncillary Procedure [facility] EMERGENCY DEPARTMENT [address] [place] [phone] 03/16/2025 12:34 AM [facility] - 03/16/2025 4:40 PM [facility] [address] [place] [phone] Pierce Donohue DO Zotti, Robert D, DO Elevated troponin (Primary Dx); History of chest pain; Methamphetamine abuse (HCC); Elevated blood pressure reading; High risk sexual behavior, unspecified type Discharge Disposition: Home and/or Self Care03/16/2025[facility] [address] [place] [address] Samuel Florentino MD Coordination Of Care (Elevated troponin)03/15/2025Travelfrom Last 3 Months Immunizations ImmunizationAdministration DatesNext DueDPT <7 years (Historic)01/13/1991, 1990,1990DTaP <7 years01/19/1995,03/02/1992Hepatitis A, Adult 04/28/2016,10/28/2015Hepatitis B, Pediatric/xgeusbbifs70/29/2008,07/27/1995, 01/19/1995Hib PRP OMP (PedvaxHib)03/02/1992,05/19/1991,01/13/1991,1990 Human Papilloma Virus 9005/22/2023Influenza Quad Preservative Free03/22/2016MMR 01/19/1995,03/02/1992Mantoux 0mm Ewhpoyfhdv44/13/1992OPV (Historic Use Only) 01/19/1995,03/02/1992,1990,1990Pneumovax 23105/22/2015Tdap (7 years and older)09/03/2007Varicella (Varivax)07/27/1995meningococcal MCV4P (Menactra) 09/03/2007 Surgical History SurgeryDateSite/LateralityCommentsCIRCUMCISION,CLAMP04/15/1992 For phimosis REMOVE TONSILS/ADENOIDS,<12 Y/O02/03/1999 Bilateral Medical History Medical AcfrbdvEtzzNooyninaCtesfngp96/26/2005Closed fracture of metatarsal bone(s)01/28/2002Avulsion fx, base of right fifth metatarsal.Geographic tongue 03/02/1992Hypertrophy of tonsil with jlixrddl62/24/1999S/P Bilateral T&A Redundant prepuce and xicgyoew74/10/1992S/PCircumcisionMethamphetamine abuse (HCC)07/2015 Social History Tobacco UseTypesPacks/DayYears UsedDateSmoking Tobacco: Every DayCigarettes0.56 Started: 2020Smokeless Tobacco: Never Tobacco Cessation:Ready to Q uit: Yes; Counseling Given: Yes Alcohol UseStandard Drinks/WeekCommentsNot Currently0 (1 standard drink = 0.6 oz pure alcohol)occasionalAUDIT-CAnswerDate RecordedQ1: How often do you have a drink containing alcohol?Never04/19/2025Q2: How many drinks containing alcohol do you have on a typical day when you are drinking?Patient does not drink 04/19/2025Q3: How often do you have six or more drinks on one occasion?Never 04/19/2025Hunger Vital SignAnswerDate RecordedWithin the past 12 months, you worried that your food would run out before you got the money to buymore. Sometimes true04/19/2025Within the past 12 months, the food [...] or living in a long term (including now)?Yes04/19/2025HC UtilitiesAnswerDate RecordedIn the past 12 months has the [employer], gas, oil, or water [employer]oster [employer] threatened to shut off services in your home?Yes04/19/2025EH IP Custom IPVAnswerDate RecordedDo you feel UNSAFE in any of your personal relationships with your family members or any other acquaintances?Yes04/19/2025Sex and Gender InformationValueDate RecordedSex Assigned at AppnfZlmy95/27/2022 10:07 PM CDTLegal OzrGexo6006/16/2012 2:00 AM CSTGender WdvefmehNroy28/27/2022 10:07 PM CDTSexual OrientationStraight 04/19/2025 4:12 PM ANALYTICS ASSOCIATE History LengthWeightHead CircumBirth Date/TimeGestation AgeD/C WeightAPGARsDelivery MethodFeeding Yarqre20 (55.9 cm)8 lb 5 oz (3.771 kg)12.5 (31.8 cm)1990 39.5 wks8 lb 0.5 oz1min: 95min: 910min: 9Live /VaginalBreast FedLabor DurationDays In HospitalHospital NameHospital Location Last Filed Vital Signs Vital SignReadingTime TakenCommentsBlood Psksgdli091/7904/30/2025 8:22 AM ANALYTICS ASSOCIATE Fdfay621104/30/2025 8:22 AM YQFHndxfztvvsx31.5 ??C (97.7 ??F)04/30/2025 8:22 AM CSTRespiratory Bwpw359207/01/2024 8:22 AM CSTOxygen Nuscsocuqr44%04/30/2025 8:22 AM CSTInhaled Oxygen Concentration--Kkpkrt07.9 kg (184 lb 15.5 oz)04/26/2025 7:58 AM JYXPirbkq543.7 cm (5' 8)04/19/2025 4:13 PM CSTBody Mass Index28.12 04/19/2025 4:13 PM ANALYTICS ASSOCIATE Plan of Treatment Health MaintenanceDue DateLast DoneCommentsPneumococcal/PCV20 Vaccine: Pediatrics (2-5 yrs) and At-Risk Patients (6-49 yrs) (Standing Order) (2 of 2 - PCV)TETANUS (Standing Order), 01/19/1995, 03/02/1992, Additional history existsHPV Vaccine (Standing Order) (2 - 3-dose SCDM series)OVID-19 Vaccine ( - 2024- season) 2025Influenza Vaccine Seasonal (Standing Order) (#1) Hepatitis B Vaccine (Standing Order)Zmonaphkl34/29/2008, 07/27/1995, 01/19/1995 PERTUSSIS (Standing Order)Hbmmtbutf56/29/2008, 01/19/1995, 03/02/1992, Additional history exists Procedures Procedure NamePriorityDate/TimeAssociated DiagnosisCommentsLIPID PROFILERoutine 04/21/2025 3:26 PM ANALYTICS ASSOCIATE EKG 12-PHXJNlbmtmt30/15/2025 2:39 PM ANALYTICS ASSOCIATE URINE DRUG GBUHVBGOYM39/14/2025 8:11 AM ANALYTICS ASSOCIATE LYMCWUQLPAB32/08/2025 3:37 PM ANALYTICS ASSOCIATE BASIC METABOLIC UBQYLSJWZ52/08/2025 3:37 PM ANALYTICS ASSOCIATE TUALJYZMDDRZ85/08/2025 3:37 PM ANALYTICS ASSOCIATE HOLD SERUM HPNDPTZP56/08/2025 3:37 PM CSTHOLD NA RQFHYCDPKGI61/08/2025 3:37 PM CSTHOLD EXHRRIAJ20/08/2025 3:37 PM CSTHOLD LI QDJNPJJSQFB22/08/2025 3:37 PM ANALYTICS ASSOCIATE URINE DRUG UPGELGMDKA89/27/2025 8:14 AM ANALYTICS ASSOCIATE XR CHEST 1 ZCXTOHPM40/26/2025 6:36 PM ANALYTICS ASSOCIATE SARS-COV-2/INFLUENZA A AND B/RESPIRATORY SYNCYTIAL VIRUS, MOLECULAR DETECTION 04/01/2025 6:35 PM ANALYTICS ASSOCIATE BLOOD BANK DRAW & TERWEOJY82/26/2025 6:25 PM ANALYTICS ASSOCIATE D-DIMERSTAT Add-On04/01/2025 6:25 PM ANALYTICS ASSOCIATE BNPSTAT Add-On04/01/2025 6:25 PM ANALYTICS ASSOCIATE HOLD DARK GREEN WHOLE BLOOD FMOXELCJ01/26/2025 6:25 PM CSTHOLD CONDON TUBESTAT 04/01/2025 6:25 PM CSTHOLD SERUM MCHROIBR04/26/2025 6:25 PM CSTHOLD NA CITRATE STAT11/ 6:25 PM CSTHOLD LI FRFPCPKELIW92/26/2025 6:25 PM CSTHOLD EDTASTAT 04/01/2025 6:25 PM CSTC REACTIVE QSSASJJDLGT00/26/2025 6:25 PM ANALYTICS ASSOCIATE COMPREHENSIVE METABOLIC EXCQPTZIH34/26/2025 6:25 PM ANALYTICS ASSOCIATE WWKVKNSGIRJK08/26/2025 6:25 PM ANALYTICS ASSOCIATE RAINBOW ZFDIOIDY21/26/2025 6:25 PM ANALYTICS ASSOCIATE TROPONIN ISTAT106/01/2024 6:25 PM ANALYTICS ASSOCIATE EKG 12-IXQZYPJS47/26/2025 6:12 PM ANALYTICS ASSOCIATE ECG 12 LEAD, TRACING PHITMkkffxm94/26/2025 6:09 PM ANALYTICS ASSOCIATE Chest pain, unspecified type TROPONIN GZowjdic08/12/2025 10:03 AM ANALYTICS ASSOCIATE C REACTIVE PROTEINAdd on03/18/2025 6:13 AM ANALYTICS ASSOCIATE YHFOOQRSAGEyxduxe69/12/2025 6:13 AM ANALYTICS ASSOCIATE VQAWODFBGPcwlkvy25/12/2025 6:13 AM ANALYTICS ASSOCIATE BASIC METABOLIC QZGCKVlovjao11/12/2025 6:13 AM ANALYTICS ASSOCIATE NZAVZRAJDmzbzzl02/12/2025 6:13 AM ANALYTICS ASSOCIATE MR CARDIAC FUNCTION W FKUXJMUBCJrsecsx26/11/2025 9:[address] CARDIAC EXTRA CARD OCCYZXWfosmzj42/11/2025 5:[address] ANGIO CORONARY ART CALC EVAL CARDIAC S NDmgands03/11/2025 5:07 PM ANALYTICS ASSOCIATE TROPONIN NKzbwb7003/17/2025 5:00 AM ANALYTICS ASSOCIATE XR CHEST 2 WUTXHXNHB62/11/2025 3:15 AM ANALYTICS ASSOCIATE SARS-COV-2/INFLUENZA A&B MOLECULAR LYOFAKDJXTRNE65/11/2025 3:11 AM ANALYTICS ASSOCIATE TROPONIN ISTAT105/17/2024 2:40 AM ANALYTICS ASSOCIATE CEJEHBSBHE46/11/2025 2:40 AM ANALYTICS ASSOCIATE COMPREHENSIVE METABOLIC XHTSLMFUN44/11/2025 2:40 AM ANALYTICS ASSOCIATE HEMOGRAM/YPDHGARA14/11/2025 2:40 AM ANALYTICS ASSOCIATE EKG 12-ZSQVLRNH03/11/2025 2:28 AM ANALYTICS ASSOCIATE ECHO ADULT CLPXAFWUDGGH05/10/2025 12:40 PM ANALYTICS ASSOCIATE TROPONIN UTokwy4803/16/2025 11:55 AM ANALYTICS ASSOCIATE POCUS FEIWOSVOOYO16/10/2025 7:13 AM ANALYTICS ASSOCIATE Elevated troponin History of chest pain Methamphetamine abuse (HCC) Elevated blood pressure reading High risk sexual behavior, unspecified type URINE DRUG NQHCPXUXQJ05/10/2025 5:04 AM ANALYTICS ASSOCIATE EKG 12-TDQLXPGH04/10/2025 4:32 AM ANALYTICS ASSOCIATE TROPONIN ISTAT105/16/2024 3:34 AM ANALYTICS ASSOCIATE XR CHEST 2 YYZZZTZXQ25/10/2025 3:20 AM ANALYTICS ASSOCIATE CHLAMYDIA TRACHOMATIS/NEISSERIA GONORRHOEAE MOLECULAR UCOSOXOEDEAJN91/10/2025 1:56 AM ANALYTICS ASSOCIATE HIV ANTIGEN/IVEKLAPVSHOD79/10/2025 1:56 AM ANALYTICS ASSOCIATE CHLAMYDIA/GONORRHOEAE AMPLIFIED YLDZDKB38/10/2025 1:55 AM ANALYTICS ASSOCIATE PROTIMESTAT Add-On03/16/2025 1:45 AM ANALYTICS ASSOCIATE D-RVCXKITEG51/10/2025 1:45 AM ANALYTICS ASSOCIATE TROPONIN ISTAT105/16/2024 1:45 AM ANALYTICS ASSOCIATE HWRFIBZWPHHLH20/10/2025 1:45 AM ANALYTICS ASSOCIATE COMPREHENSIVE METABOLIC TATPYWHRV58/10/2025 1:45 AM ANALYTICS ASSOCIATE HEMOGRAM/HHMVGNMO96/10/2025 1:45 AM ANALYTICS ASSOCIATE HOLD SERUM VMJEPQZA14/10/2025 1:45 AM CSTHOLD NA UJOFWKOHNAX72/10/2025 1:45 AM CSTHOLD RIOXCUGH43/10/2025 1:45 AM CSTHOLD LI UCUFIKCNSRE52/10/2025 1:45 AM ANALYTICS ASSOCIATE SARS-COV-2/INFLUENZA A AND B/RESPIRATORY SYNCYTIAL VIRUS, MOLECULAR DETECTION STAT105/15/2024 10:20 PM ANALYTICS ASSOCIATE EKG 12-UKMOVDXL14/09/2025 10:09 PM ANALYTICS ASSOCIATE from Last 3 Months Results * (ABNORMAL) LIPID PANEL (04/21/2025 3:26 PM ANALYTICS ASSOCIATE)ComponentValueRef RangeTest MethodAnalysis TimePerformed AtPathologist FmjggcxsaArmmxuqynsx2886 - 200 mg/dL04/21/2025 3:49 PM [facility]ORATORYHDL Zlvxwtvebiq46>40 mg/dL04/21/2025 3:49 PM [facility] LABORATORYNon-HDL Gqcnuazdcnf1133 - 130 mg/dL04/21/2025 3:49 PM [facility] JXXQLANSTIOnnnjywjeufvz406<175 mg/dL04/21/2025 3:49 PM [facility] LABORATORYLDL Cholesterol, Idrbgyvhhp209(H)0 - 100 mg/dL04/21/2025 3:49 PM [facility] Comment:LDL Cholesterol calculated using the Friedewald equation.Specimen (Source)Anatomical Location / LateralityCollection Method / VolumeCollection TimeReceived TimeBloodBLOOD SPECIMEN / UnknownVenipuncture / Wdrycqf5204/21/2025 3:26 PM CST04/21/2025 3:29 PM ANALYTICS ASSOCIATE Narrative [facility] - 04/21/2025 3:49 PM ANALYTICS ASSOCIATE Total Cholesterol Reference Ranges Optimal: <200 mg/dL Borderline High: 200-239 mg/dL High: > or = 240 mg/dL Triglycerides Reference Ranges Optimal: 10-200 mg/dL Borderline High: 150-200 mg/dL High: 201-499 mg/dL Very High: > or = 500 mg/dL LDL Cholesterol Reference Ranges Optimal: <100 mg/dL Near Optimal: 100-129 mg/dL Borderline High: 130-159 mg/dL High: 160-189 mg/dL Very High: > or = 190 mg/dL Authorizing ProviderResult TypeResult StatusDanettnorah Hernandezt BIT BENDER, CNPEC CHEMISTRY ORDERABLES ABNFinal ResultPerforming OrganizationAddressCity/State/ZIP CodePhone Number [facility] [address] [place] [address] * EKG 12-LEAD (04/20/2025 2:39 PM ANALYTICS ASSOCIATE) Only the most recent of5 resultswithin the time period is included. ComponentValueRef RangeTest MethodAnalysis TimePerformed AtPathologist Signature Ventricular Kvoe48NSKIDGTWwutnc Paad68ORRHSFIK-Z Zfawatdn824dxCNDGCEQ Flfplyiz70 qtRMRZZQ087vhSWWQJRz045hzESGVT Ieis21mrvydoxRLETY Grha11agbaxgpMCNXM Axis41 degreesMUSESpecimen (Source)Anatomical Location / LateralityCollection Method / VolumeCollection TimeReceived Time04/20/2025 2:39 PM ANALYTICS ASSOCIATE Narrative MUSE - 04/20/2025 3:44 PM ANALYTICS ASSOCIATE Confirming Doc Juan Jose Carr Normal sinus rhythm with sinus arrhythmia Prolonged QT interval Abnormal ECG When compared with ECG of 01-Apr-2025 18:12, No significant change was found Procedure Juan Jose Arrieta MD - 04/20/2025 Confirming Doc Juan Jose Bruno Normal sinus rhythm with sinus arrhythmia Prolonged QT interval Abnormal ECG When compared with ECG of 01-Apr-2025 18:12, No significant change was found Authorizing ProviderResult TypeResult StatusDainocente Alexandra BIT BENDER, CNPIP ECG ORDERABLESFinal ResultPerforming OrganizationAddressCity/State/ZIP CodePhone Number MUSE * (ABNORMAL) URINE DRUG SCREEN (04/19/2025 8:11 AM [facility])ComponentValueRef Range Test MethodAnalysis TimePerformed AtPathologist SignatureUrine Amphetamines ScreenNegativePositive cut-off concentration: 1000 ng/mL04/19/2025 8:50 AM [facility] LAB[facility]ATORYUrine Barbiturates ScreenNegativePositive cut-off concentration: 200 ng/mL04/19/2025 8:50 AM [facility] LABORATORYUrine Benzodiazepines ScreenNegativePositive cut-off concentration: 200 ng/mL 04/19/2025 8:50 AM [facility] LABORATORYUrine Buprenorphine Screen NegativePositive cut-off concentration: 5 ng/mL04/19/2025 8:50 AM [facility] LABORATORYUrine Cocaine ScreenNegativePositive cut-off concentration: 300 ng/mL04/19/2025 8:50 AM [facility] Methadone ScreenNegativePositive cut-off concentration: 300 ng/mL04/19/2025 8:50 AM [facility] Opiates ScreenNegativePositive cut-off concentration:300 ng/mL04/19/2025 8:50 AM [facility] Oxycodone ScreenNegativePositive cut-off concentration: 300 ng/mL04/19/2025 8:50 AM [facility] Phencyclidine (PCP) ScreenNegative Positive cut-off concentration: 25 ng/mL04/19/2025 8:50 AM [facility] Carboxy-THC ScreenPositive(A)Positive cut-off concentration: 50 ng/mL04/19/2025 8:50 AM [facility]IN[facility] LABORATORYSpecimen (Source) Anatomical Location / LateralityCollection Method / VolumeCollection Time Received TimeUrineURINE SPECIMEN COLLECTION, CLEAN CATCH / UnknownNon-blood collection / Bptvxnf3404/19/2025 8:11 AM CST04/19/2025 8:14 AM ANALYTICS ASSOCIATE Narrative [facility] - 04/19/2025 8:50 AM ANALYTICS ASSOCIATE Positive results are unconfirmed and will only [...] Legal or employment purposes. Authorizing ProviderResult TypeResult StatusMicgabbie Miranda [facility] URINE ORDERABLESFinal ResultPerforming OrganizationAddressCity/State/ZIP CodePhone Number [facility] [address] [place] [address] * HOLD LI HEPARIN (04/13/2025 3:37 PM ANALYTICS ASSOCIATE)Specimen (Source)Anatomical Location / LateralityCollection Method / VolumeCollection TimeReceived TimeBloodBLOOD SPECIMEN / UnknownVenipuncture / Rwxwxvb0904/13/2025 3:37 PM CST04/13/2025 3:45 PM ANALYTICS ASSOCIATE Narrative Authorizing ProviderResult TypeResult StatusChristopher Francis Kimbrough DO CHEMISTRY ORDERABLESFinal ResultPerforming OrganizationAddressty/[facility]/ZIP CodePhone Number [facility] [address] [place] [address] * HOLD NA CITRATE (04/13/2025 3:37 PM ANALYTICS ASSOCIATE)Specimen (Source)Anatomical Location / LateralityCollection Method / VolumeCollection TimeReceived TimeBloodBLOOD SPECIMEN / UnknownVenipuncture / Dzfahbt5804/13/2025 3:37 PM CST04/13/2025 3:45 PM ANALYTICS ASSOCIATE Narrative Authorizing ProviderResult TypeResult StatusChristopher Francis Kimbrough DO HEMATOLOGY ORDERABLESFinal ResultPerforming OrganizationAddCoatesville [facility] Centerty/[facility]/ZIP CodePhone Number [facility] [address] [place] [address] * HOLD PURPLE TUBE (04/13/2025 3:37 PM ANALYTICS ASSOCIATE)Specimen (Source)Anatomical Location / LateralityCollection Method / VolumeCollection TimeReceived TimeBloodBLOOD SPECIMEN / UnknownVenipuncture / Gzgawpq9904/13/2025 3:37 PM CST04/13/2025 3:45 PM ANALYTICS ASSOCIATE Narrative Authorizing ProviderResult TypeResult StatusChristopher Francis Kimbrough DO HEMATOLOGY ORDERABLESFinal ResultPerforming OrganizationAddressCity/State/ZIP CodePhone Number [facility] [address] [place] [address] * HOLD SERUM TUBE (04/13/2025 3:37 PM ANALYTICS ASSOCIATE)Specimen (Source)Anatomical Location / LateralityCollection Method / VolumeCollection TimeReceived TimeBloodBLOOD SPECIMEN / UnknownVenipuncture / Wkxzmzt8304/13/2025 3:37 PM CST04/13/2025 3:45 PM ANALYTICS ASSOCIATE Narrative Authorizing ProviderResult TypeResult StatusChristopher Francis Kimbrough [facility] CHEMISTRY ORDERABLESFinal ResultPerforming OrganizationAddressty/[facility] CodePhone Number [facility] [address] [place] [address] * (ABNORMAL) BASIC METABOLIC PANEL (04/13/2025 3:37 PM ANALYTICS ASSOCIATE)ComponentValueRef RangeTest MethodAnalysis TimePerformed AtPathologist WjytwlhkyPnlwjb442513 - 143 mEq/L106/14/2024 4:07 PM [facility]INICAL LABORATORYPotassium3.43.4 - 5.1 mEq/L106/14/2024 4:07 PM [facility] YKDCWDKQKYUflwgwns69224 - 110 mEq/L106/14/2024 4:07 PM [facility]INICAL LABORATORYCarbon Mggqplq9657 - 29 mEq/L106/14/2024 4:07 PM [facility] CLINICAL LABORATORYAnion Gap12.03.0 - 15.0 mEq/L106/14/2024 4:07 PM [facility] CLINICAL LABORATORYBlood Urea Netmiqyg823 - 24 mg/dL04/13/2025 4:07 PM [facility] CLINICAL LABORATORYCreatinine1.010.70 - 1.20 mg/dL04/13/2025 4:07 PM [facility] CLINICAL LABORATORYGlomerular Filtration Gaki761>60 mL/min/1.73 m* 4:07 PM [facility] CLINICAL LABORATORYComment:Risk of cardiovascular disease increases when GFR is abnormal; persistently reduced GFR values are a specific indication of CKD. This calculation uses CKD-EPI 2020 equation without adjustment for race; it has not been validated in women.Calcium9.78.4 - 10.5 mg/dL04/13/2025 4:07 PM [facility] KDECHYBJUZPypegkk754(H)70 - 99 mg/dL04/13/2025 4:07 PM [facility] CLINICAL LABORATORYSpecimen (Source)Anatomical Location / LateralityCollection Method / VolumeCollection TimeReceived TimeBloodBLOOD SPECIMEN / UnknownVenipuncture / Pgfrxai4504/13/2025 3:37 PM CST04/13/2025 3:45 PM ANALYTICS ASSOCIATE Narrative [facility] - 04/13/2025 4:07 PM ANALYTICS ASSOCIATE Current ADA criteria for Glucose: ?Normal: 70-99 mg/dL ?Impaired Fasting Glucose: 100-125 mg/dL ?Diabetes Mellitus: at or above 126 mg/dL The diagnosis of diabetes must be confirmed on a subsequent day by measuring Fasting Plasma Glucose, 2-hr PG or random plasma glucose (if symptoms are present). Authorizing ProviderResult TypeResult StatusChristopher Francis [facility] CHEMISTRY ORDERABLESFinal ResultPerforming OrganizationAddressCity/State/ZIP CodePhone Number [facility] [address] * (ABNORMAL) HEMOGRAM (04/13/2025 3:37 PM ANALYTICS ASSOCIATE)ComponentValueRef RangeTest Method Analysis TimePerformed AtPathologist JkwqfxkbrFGG06.4(H)3.2 - 11.0 10*9/L 04/13/2025 4:19 PM [facility] CL[facility] LABORATORYRBC5.034.14 - 5.76 10*12/L 04/13/2025 4:19 PM [facility] DYVAAIDAVCHAD52.712.9 - 16.9 g/dL 04/13/2025 4:19 PM [facility] AMFQGJHFLCIBK34.838.4 - 49.7 % 04/13/2025 4:19 PM [facility] MRMZXVYXBKHCP59.181.4 - 99.0 fL 04/13/2025 4:19 PM [facility] ABBROWDPHTSEH09.226.7 - 33.1 pg 04/13/2025 4:19 PM [facility] XEMTGETXSQAAXE31.031.6 - 35.5 g/dL 04/13/2025 4:19 PM [facility] TQNAYJZOUHDQS27.211.3 - 14.6 % 04/13/2025 4:19 PM [facility] NECEUQLQCHKQU182994 - 375 10*9/L 04/13/2025 4:19 PM [facility] CLINICAL LABORATORYSpecimen (Source)Anatomical Location / LateralityCollection Method / VolumeCollection TimeReceived Time BloodBLOOD SPECIMEN / UnknownVenipuncture / Gljopkk6304/13/2025 3:37 PM ANALYTICS ASSOCIATE 04/13/2025 3:45 PM ANALYTICS ASSOCIATE Narrative Authorizing ProviderResult TypeResult StatusChristopher B Luis E LESTER HEMATOLOGY ORDERABLESFinal ResultPerforming OrganizationAddressMer[facility] Health St[facility]/State/[facility] CodePhone Number [facility] [address] [place] [address] * ALCOHOL (04/13/2025 3:37 PM ANALYTICS ASSOCIATE)ComponentValueRef RangeTest MethodAnalysis TimePerformed AtPathologist SignatureAlcohol<10.0<=10.0 mg/dL04/13/2025 4:07 PM [facility] CLINICAL LABORATORYSpecimen (Source)Anatomical Location / LateralityCollection Method / VolumeCollection TimeReceived TimeBloodBLOOD SPECIMEN / UnknownVenipuncture / Mmpqrul6204/13/2025 3:37 PM CST04/13/2025 3:45 PM ANALYTICS ASSOCIATE Narrative Authorizing ProviderResult TypeResult StatusChristopher B Luis E LESTER CHEMISTRY ORDERABLESFinal ResultPerforming OrganizationAddIndiana Regional Medical Center/[facility]/ZIP CodePhone Number [facility] [address] [place] [address] * (ABNORMAL) URINE DRUG SCREEN (04/02/2025 8:14 AM ANALYTICS ASSOCIATE)ComponentValueRef Range Test MethodAnalysis TimePerformed AtPathologist SignatureUrine Amphetamines ScreenPositive(A)Positive cut-off concentration: 1000 ng/mL04/02/2025 8:51 AM [facility] LABORATORYUrine Barbiturates ScreenNegativePositive cut- off concentration: 200 ng/mL04/02/2025 8:51 AM [facility] Urine Benzodiazepines ScreenNegativePositive cut-off concentration: 200 ng/mL 04/02/2025 8:51 AM [facility] LABORATORYUrine Buprenorphine Screen NegativePositive cut-off concentration: 5 ng/mL04/02/2025 8:51 AM [facility]IN[facility] LABORATORYUrine Cocaine ScreenNegativePositive cut-off concentration: 300 ng/mL04/02/2025 8:51 AM [facility] LABORATORYUrine Methadone ScreenNegativePositive cut-off concentration: 300 ng/mL04/02/2025 8:51 AM [facility] LABORATORYUrine Opiates ScreenNegativePositive cut-off concentration:300 ng/mL04/02/2025 8:51 AM [facility] LABORATORYUrine Oxycodone ScreenNegativePositive cut-off concentration: 300 ng/mL04/02/2025 8:51 AM [facility] LABORATORYUrine Phencyclidine (PCP) ScreenNegative Positive cut-off concentration: 25 ng/mL04/02/2025 8:51 AM [facility] LABORATORYUrine Carboxy-THC ScreenPositive(A)Positive cut-off concentration: 50 ng/mL04/02/2025 8:51 AM [facility] LABORATORYSpecimen (Source) Anatomical Location / LateralityCollection Method / VolumeCollection Time Received TimeUrineURINE SPECIMEN COLLECTION, CLEAN CATCH / UnknownNon-blood collection / Xtdznug3704/02/2025 8:14 AM [facility]04/02/2025 8:17 AM ANALYTICS ASSOCIATE Narrative [facility] - 04/02/2025 8:51 AM ANALYTICS ASSOCIATE Positive results are unconfirmed and will only [...] URINE ORDERABLES Final ResultPerforming OrganizationAddressCity/State/ZIP CodePhone Number [facility] [address] [place] [id number], [facility] * XR CHEST 1 VIEW (04/01/2025 6:36 PM ANALYTICS ASSOCIATE)Anatomical RegionLateralityModality ChestRadiographic ImagingSpecimen (Source)Anatomical Location / Laterality Collection Method / VolumeCollection TimeReceived Time04/01/2025 6:36 PM ANALYTICS ASSOCIATE Narrative 04/01/2025 7:29 PM ANALYTICS ASSOCIATE This document is currently in Final Status [...] MD 04/01/2025 7:29 PM Authorizing ProviderResult TypeResult StatusBrnamita ROCKWELL DIAGNOSTIC IMAGING ORDERABLESFinal Result * SARS-COV-2/INFLUENZA A AND B/RESPIRATORY SYNCYTIAL VIRUS, MOLECULAR DETECTION (04/01/2025 6:35 PM ANALYTICS ASSOCIATE) Only the most recent of2 resultswithin the time period is included. ComponentValueRef RangeTest MethodAnalysis TimePerformed AtPathologist Signature Influenza ESllrvyvqGoixzvvd85/26/2025 7:18 PM [facility] Influenza GRjbvitidPbgdywpc38/26/2025 7:18 PM [facility] Respiratory Syncytial EhfvpMwzugeisTxsyrsir96/26/2025 7:18 PM [facility] AJAKUERFLQSWHX-QkB-1 RNA (COVID-19)NegativeNegative/Not Detected 04/01/2025 7:18 PM [facility] CLINICAL LABORATORYSpecimen (Source)Anatomical Location / LateralityCollection Method / VolumeCollection TimeReceived TimeSwab ENTIRE NASOPHARYNX / UnknownNon-blood collection / Qqoulpz7804/01/2025 6:35 PM ANALYTICS ASSOCIATE 04/01/2025 6:37 PM ANALYTICS ASSOCIATE Narrative [facility] - 04/01/2025 7:18 PM ANALYTICS ASSOCIATE Test results should be used in combination with clinical observations, patient history and epidemiological information. Method Information This test uses the [employer] Xpert Xpress CoV-2/Flu/RSV plus assay to detect and differentiate RNA targets from SARS-CoV-2, influenza A, influenza B, and/or RSV by real-time polymerase chain reaction (PCR) on the [employer] GeneXpert Instrument System. It has received Emergency Use Authorization (EUA) by the U.S. Food and Drug Administration; performance characteristics have been verified by [facility] in a manner consistent with CLIA requirements. Authorizing ProviderResult TypeResult StatusGary ROCKWELL MICROBIOLOGY - GENERAL ORDERABLESFinal ResultPerforming OrganizationAddressCity/State/ZIP Code Phone Number [facility] [address] [place] [address] * HOLD CONDON TUBE (04/01/2025 6:25 PM ANALYTICS ASSOCIATE)Specimen (Source)Anatomical Location / LateralityCollection Method / VolumeCollection TimeReceived TimeBloodBLOOD SPECIMEN / UnknownVenipuncture / Hkvldcj6604/01/2025 6:25 PM CST04/01/2025 6:30 PM ANALYTICS ASSOCIATE Narrative Authorizing ProviderResult TypeResult StatusGary ROCKWELL CHEMISTRY ORDERABLESFinal ResultPerforming OrganizationAddCoatesville Veterans Affairs Medical Centerty/[facility]/ZIP CodePhone Number [facility] [address] [place] [address] * HOLD DARK GREEN WHOLE BLOOD TUBE (04/01/2025 6:25 PM ANALYTICS ASSOCIATE)Specimen (Source) Anatomical Location / LateralityCollection Method / VolumeCollection Time Received TimeBloodBLOOD SPECIMEN / UnknownVenipuncture / Qgfbyaw7604/01/2025 6:25 PM CST04/01/2025 6:30 PM ANALYTICS ASSOCIATE Narrative Authorizing ProviderResult TypeResult Anahy ROCKWELL LAB SEND OUT ORDERABLESFinal ResultPerforming OrganizationAddressty/State/ZIP CodePhone Number [facility] [address] [place] [address] * HOLD LI HEPARIN (04/01/2025 6:25 PM ANALYTICS ASSOCIATE)Specimen (Source)Anatomical Location / LateralityCollection Method / VolumeCollection TimeReceived TimeBloodBLOOD SPECIMEN / UnknownVenipuncture / Xxwjbxv8604/01/2025 6:25 PM CST04/01/2025 6:30 PM ANALYTICS ASSOCIATE Narrative Authorizing ProviderResult TypeResult StatusGary ROCKWELL CHEMISTRY ORDERABLESFinal ResultPerforming OrganizationAddressty/State/ZIP CodePhone Number [facility] [address] [place] [address] * HOLD NA CITRATE (04/01/2025 6:25 PM ANALYTICS ASSOCIATE)Specimen (Source)Anatomical Location / LateralityCollection Method / VolumeCollection TimeReceived TimeBloodBLOOD SPECIMEN / UnknownVenipuncture / Ernfulh6504/01/2025 6:25 PM CST04/01/2025 6:30 PM ANALYTICS ASSOCIATE Narrative Authorizing ProviderResult TypeResult StatusGary ROCKWELL HEMATOLOGY ORDERABLESFinal ResultPerforming OrganizationAddressCity/State/ZIP CodePhone Number [facility] [address] [place] [address] * HOLD PURPLE TUBE (04/01/2025 6:25 PM ANALYTICS ASSOCIATE)Specimen (Source)Anatomical Location / LateralityCollection Method / VolumeCollection TimeReceived TimeBloodBLOOD SPECIMEN / UnknownVenipuncture / Qlevwck9504/01/2025 6:25 PM CST04/01/2025 6:30 PM ANALYTICS ASSOCIATE Narrative Authorizing ProviderResult TypeResult StatusGary ROCKWELL HEMATOLOGY ORDERABLESFinal ResultPerforming OrganizationAddressty/State/ZIP CodePhone Number [facility] [address] [place] [address] * HOLD SERUM TUBE (04/01/2025 6:25 PM ANALYTICS ASSOCIATE)Specimen (Source)Anatomical Location / LateralityCollection Method / VolumeCollection TimeReceived TimeBloodBLOOD SPECIMEN / UnknownVenipuncture / Hdlixpj4504/01/2025 6:25 PM CST04/01/2025 6:30 PM ANALYTICS ASSOCIATE Narrative Authorizing ProviderResult TypeResult StatusGary ROCKWELL CHEMISTRY ORDERABLESFinal ResultPerforming OrganizationAddressty/State/ZIP CodePhone Number [facility] [address] [place] [address] * BLOOD BANK DRAW & HOLD (04/01/2025 6:25 PM ANALYTICS ASSOCIATE)ComponentValueRef RangeTest MethodAnalysis TimePerformed AtPathologist SignatureBB DRAW YZQFSRSK97/26/2025 6:33 PM [facility] BLOOD BANKComment: A specimen has been received in [facility] and is available for testing up to 3 days from draw. ??Please notify [facility] if a Type and Screen is needed. Specimen (Source)Anatomical Location / LateralityCollection Method / Volume Collection TimeReceived TimeBloodBLOOD SPECIMEN / UnknownVenipuncture / Unknown 04/01/2025 6:25 PM CST04/01/2025 6:30 PM ANALYTICS ASSOCIATE Narrative Authorizing ProviderResult TypeResult StatusGary ROCKWELL BLOOD BANK ORDERABLESEdited Result - FinalPerforming OrganizationAddressCity/State/ZIP Code Phone Number [facility] BLOOD BANK [address] [place] [address], [facility] * (ABNORMAL) BNP (04/01/2025 6:25 PM ANALYTICS ASSOCIATE)ComponentValueRef RangeTest Method Analysis TimePerformed AtPathologist SignatureNT-pro B-Type Natriuretic Peptide (NT-proBNP)361.7(H)0.0 - 300.0 pg/mL04/01/2025 6:58 PM [facility] CLINICAL LABORATORYSpecimen (Source)Anatomical Location / LateralityCollection Method / VolumeCollection TimeReceived TimeBloodBLOOD SPECIMEN / Unknown Venipuncture / Mqksakp5204/01/2025 6:25 PM CST04/01/2025 6:30 PM ANALYTICS ASSOCIATE Narrative [facility] - 04/01/2025 6:58 PM ANALYTICS ASSOCIATE Renal Failure, obesity and other diseases could [...] TypeResult StatusGary ROCKWELL CHEMISTRY ORDERABLES ABNFinal ResultPerforming OrganizationAddressCity/State/ZIP CodePhone Number [facility] [address] [id number] * C-REACTIVE PROTEIN (04/01/2025 6:25 PM ANALYTICS ASSOCIATE)ComponentValueRef RangeTest Method Analysis TimePerformed AtPathologist SignatureC-Reactive Protein0.1<=0.8 mg/dL 04/01/2025 6:52 PM [facility]IN[facility] LABORATORYSpecimen (Source)Anatomical Location / LateralityCollection Method / VolumeCollection TimeReceived Time BloodBLOOD SPECIMEN / UnknownVenipuncture / Dupstil4404/01/2025 6:25 PM ANALYTICS ASSOCIATE 04/01/2025 6:30 PM ANALYTICS ASSOCIATE Narrative Authorizing ProviderResult TypeResult StatusBrian Liv Alvarado [facility] CHEMISTRY ORDERABLESFinal ResultPerforming OrganizationAddressty/State/ZIP CodePhone Number [facility] [address] [phone] * (ABNORMAL) COMPREHENSIVE METABOLIC PANEL (04/01/2025 6:25 PM ANALYTICS ASSOCIATE)Component ValueRef RangeTest MethodAnalysis TimePerformed AtPathologist SignatureSodium 812033 - 143 mEq/L106/01/2024 6:52 PM [facility] LABORATORYPotassium 3.43.4 - 5.1 mEq/L106/01/2024 6:52 PM [facility] QSMEKHMHALFnpajtdy707 99 - 110 mEq/L106/01/2024 6:52 PM [facility] LABORATORYCarbon Dioxide 2119 - 29 mEq/L106/01/2024 6:52 PM [facility] LABORATORYAnion Gap15.0 3.0 - 15.0 mEq/L106/01/2024 6:52 PM [facility] LABORATORYBlood Urea Hrfsfyxv967 - 24 mg/dL04/01/2025 6:52 PM [facility] Creatinine0.800.70 - 1.20 mg/dL04/01/2025 6:52 PM [facility] LABORATORYGlomerular Filtration Isur968>60 mL/min/1.73 m* 6:52 PM [facility] LABORATORYComment:Risk of cardiovascular disease increases when GFR is abnormal; persistently reduced GFR values are a specific indication of CKD. This calculation uses CKD-EPI 2020 equation without adjustment for race; it has not been validated in women.Calcium9.08.4 - 10.5 mg/dL04/01/2025 6:52 PM [facility] UYKWCYKPRILtqkxut3132 - 99 mg/dL04/01/2025 6:52 PM [facility] LABORATORYProtein, Total7.46.0 - 8.0 g/dL04/01/2025 6:52 PM [facility] LABORATORYAlbumin4.13.5 - 5.0 g/dL04/01/2025 6:52 PM [facility] LABORATORYAlkaline Eopsrcxkhpc0224 - 150 IU/L106/01/2024 6:52 PM [facility] LABORATORYAspartate Tazmkbrpecudvbso5185 - 40 IU/L106/01/2024 6:52 PM [facility] LABORATORYAlanine Wmpjpumfwhmmlfje1719 - 48 IU/L106/01/2024 6:52 PM [facility] LABORATORYBilirubin, Total1.6(H)0.2 - 1.2 mg/dL04/01/2025 6:52 PM ANALYTICS ASSOCIATE [facility] LABORATORYSpecimen (Source)Anatomical Location / Laterality Collection Method / VolumeCollection TimeReceived TimeBloodBLOOD SPECIMEN / UnknownVenipuncture / Iilzoha9704/01/2025 6:25 PM CST04/01/2025 6:30 PM ANALYTICS ASSOCIATE Narrative [facility] - 04/01/2025 6:52 PM ANALYTICS ASSOCIATE Current ADA criteria for Glucose: ?Normal: 70-99 mg/dL ?Impaired Fasting Glucose: 100-125 mg/dL ?Diabetes Mellitus: at or above 126 mg/dL The diagnosis of diabetes must be confirmed on a subsequent day by measuring Fasting Plasma Glucose, 2-hr PG or random plasma glucose (if symptoms are present). Authorizing ProviderResult TypeResult StatusGary ROCKWELL CHEMISTRY ORDERABLESFinal ResultPerforming OrganizationAddressCity/State/ZIP CodePhone Number [facility] [address] [id number] * TROPONIN I (04/01/2025 6:25 PM ANALYTICS ASSOCIATE)ComponentValueRef RangeTest MethodAnalysis TimePerformed AtPathologist SignatureHigh Sensitivity Troponin I25.6<=35.0 ng/L106/01/2024 6:58 PM [facility] LABORATORYSpecimen (Source) Anatomical Location / LateralityCollection Method / VolumeCollection Time Received TimeBloodBLOOD SPECIMEN / UnknownVenipuncture / Aghpdyl8604/01/2025 6:25 PM CST04/01/2025 6:30 PM ANALYTICS ASSOCIATE Narrative Authorizing ProviderResult TypeResult StatusGary ROCKWELL CHEMISTRY ORDERABLESFinal ResultPerforming OrganizationAddressCity/State/ZIP CodePhone Number [facility] [address] [id number] * (ABNORMAL) HEMOGRAM (04/01/2025 6:25 PM ANALYTICS ASSOCIATE)ComponentValueRef RangeTest Method Analysis TimePerformed AtPathologist SqtzicoqvOIX64.1(H)3.2 - 11.0 10*9/L 04/01/2025 6:34 PM [facility] LABORATORYRBC4.954.14 - 5.76 10*12/L 04/01/2025 6:34 PM [facility] XFDRZCNIJWCTQ26.512.9 - 16.9 g/dL 04/01/2025 6:34 PM [facility] LXDNORYGAVMNR59.738.4 - 49.7 % 04/01/2025 6:34 PM [facility] ZUYAVOOAUJBHO45.381.4 - 99.0 fL 04/01/2025 6:34 PM [facility] EGGNBDGXOLUDE56.326.7 - 33.1 pg 04/01/2025 6:34 PM [facility] RBMSXPPJLCULCJ22.731.6 - 35.5 g/dL 04/01/2025 6:34 PM [facility] DLRIFEXCLZLMH06.611.3 - 14.6 % 04/01/2025 6:34 PM [facility] CGOFEMWSQRURY402930 - 375 10*9/L 04/01/2025 6:34 PM [facility] LABORATORYSpecimen (Source)Anatomical Location / LateralityCollection Method / VolumeCollection TimeReceived Time BloodBLOOD SPECIMEN / UnknownVenipuncture / Cnuyoba3504/01/2025 6:25 PM ANALYTICS ASSOCIATE 04/01/2025 6:30 PM ANALYTICS ASSOCIATE Narrative Authorizing ProviderResult TypeResult StatusGary ROCKWELL HEMATOLOGY ORDERABLESFinal ResultPerforming OrganizationAddressCity/State/ZIP CodePhone Number [facility] [address] [place] [address] * D-DIMER (04/01/2025 6:25 PM ANALYTICS ASSOCIATE)ComponentValueRef RangeTest MethodAnalysis TimePerformed AtPathologist SignatureD-Dimer<0.29<=0.50 ug/mL FEU106/01/2024 6:46 PM [facility]STB[facility] CL[facility]ICAL LABORATORYSpecimen (Source)Anatomical Location / LateralityCollection Method / VolumeCollection TimeReceived TimeBloodBLOOD SPECIMEN / UnknownVenipuncture / Xpzfnkg5304/01/2025 6:25 PM CST04/01/2025 6:30 PM ANALYTICS ASSOCIATE Narrative [facility] - 04/01/2025 6:46 PM ANALYTICS ASSOCIATE The negative predictive cutoff for aid in exclusion of VTE/DVT is <=0.5 ug/ml FEU. Authorizing ProviderResult TypeResult StatusGary ROCKWELL HEMATOLOGY ORDERABLESFinal ResultPerforming OrganizationAddressCity/State/ZIP CodePhone Number [facility] [address] * EKG AMBULATORY (04/01/2025 6:09 PM ANALYTICS ASSOCIATE)ComponentValueRef RangeTest Method Analysis TimePerformed AtPathologist SignatureVentricular Mmef206DDIDQPLVawfja Zggx711NFFZHFVS-X Gittdiup274fuDNZZITM Rdputlak11kjMHMNID580pvVPYINSz638wtQHUY P Srlg35roxldnmIVBNN Wzmb24jievyszYIDSW Iggo04muhbyliRANQEjhxlsyz (Source) Anatomical Location / LateralityCollection Method / VolumeCollection Time Received Time04/01/2025 6:09 PM ANALYTICS ASSOCIATE Narrative MUSE - 04/01/2025 8:37 PM ANALYTICS ASSOCIATE Confirming Doc Gareth Carrion Sinus tachycardia Right atrial enlargement Prolonged QT Abnormal ECG When compared with ECG of 17-Mar-2025 02:28, No significant change was found Procedure Note Gareth Carrion MD - 04/01/2025 Confirming Doc Gareth Carrion Sinus tachycardia Right atrial enlargement Prolonged QT Abnormal ECG When compared with ECG of 17-Mar-2025 02:28, No significant change was found Authorizing ProviderResult TypeResult StatusJenny MARAVILLA NON-INVASIVE CARDIOLOGYFinal ResultPerforming OrganizationAddressty/State/ZIP CodePhone Number MUSE * TROPONIN I (03/18/2025 10:03 AM ANALYTICS ASSOCIATE)ComponentValueRef RangeTest MethodAnalysis TimePerformed AtPathologist SignatureHigh Sensitivity Troponin I29.5<=35.0 ng/L105/18/2024 10:51 AM [facility] CLINICAL LABORATORYSpecimen (Source) Anatomical Location / LateralityCollection Method / VolumeCollection Time Received TimeBloodBLOOD SPECIMEN / UnknownVenipuncture / Xisccgq4503/18/2025 10:03 AM CST03/18/2025 10:21 AM ANALYTICS ASSOCIATE Narrative Authorizing ProviderResult TypeResult StatusAlison Carnes APRN, [facility] CHEMISTRY ORDERABLESFinal ResultPerforming OrganizationAddressCity/State/ZIP CodePhone Number [facility] [address] [place] [address] * C-REACTIVE PROTEIN (03/18/2025 6:13 AM ANALYTICS ASSOCIATE)ComponentValueRef RangeTest Method Analysis TimePerformed AtPathologist SignatureC-Reactive Protein<0.1<=0.8 mg/dL03/18/2025 10:30 AM [facility] CLINICAL LABORATORYSpecimen (Source) Anatomical Location / LateralityCollection Method / VolumeCollection Time Received TimeBloodBLOOD SPECIMEN / UnknownVenipuncture / Koxzogs7903/18/2025 6:13 AM CST03/18/2025 6:21 AM ANALYTICS ASSOCIATE Narrative Authorizing ProviderResult TypeResult StatusAlison Carnes APRN, [facility] CHEMISTRY ORDERABLESFinal ResultPerforming OrganizationAddressCity/State/ZIP CodePhone Number [facility] [address] [place] [address] * (ABNORMAL) BASIC METABOLIC PANEL (03/18/2025 6:13 AM ANALYTICS ASSOCIATE)ComponentValueRef RangeTest MethodAnalysis TimePerformed AtPathologist ZulmbwgffWokrve255922 - 143 mEq/L105/18/2024 7:06 AM [facility] CLINICAL LABORATORYPotassium4.23.4 - 5.1 mEq/L105/18/2024 7:06 AM [facility] QLENQVJZUTKntndcbf63440 - 110 mEq/L105/18/2024 7:06 AM [facility] CLINICAL LABORATORYCarbon Gognwfn4739 - 29 mEq/L105/18/2024 7:06 AM [facility] CLINICAL LABORATORYAnion Gap8.03.0 - 15.0 mEq/L105/18/2024 7:06 AM [facility] CLINICAL LABORATORYBlood Urea Quirxyij69 - 24 mg/dL03/18/2025 7:06 AM [facility] CLINICAL LABORATORYCreatinine0.850.70 - 1.20 mg/dL03/18/2025 7:06 AM [facility] CLINICAL LABORATORYGlomerular Filtration Kyra355>60 mL/min/1.73 m* 7:06 AM [facility] CLINICAL LABORATORYComment:Risk of cardiovascular disease increases when GFR is abnormal; persistently reduced GFR values are a specific indication of CKD. This calculation uses CKD-EPI 2020 equation without adjustment for race; it has not been validated in women.Calcium9.28.4 - 10.5 mg/dL03/18/2025 7:06 AM [facility] PEZICJMRJYOhbgvrw198(H)70 - 99 mg/dL03/18/2025 7:06 AM [facility] CLINICAL LABORATORYSpecimen (Source)Anatomical Location / LateralityCollection Method / VolumeCollection TimeReceived TimeBloodBLOOD SPECIMEN / UnknownVenipuncture / Nbpzlqp4103/18/2025 6:13 AM [facility]03/18/2025 6:21 AM ANALYTICS ASSOCIATE Narrative [facility] - 03/18/2025 7:06 AM [facility] Current ADA criteria for Glucose: ?Normal: 70-99 mg/dL ?Impaired Fasting Glucose: 100-125 mg/dL ?Diabetes Mellitus: at or above 126 mg/dL The diagnosis of diabetes must be confirmed on a subsequent day by measuring Fasting Plasma Glucose, 2-hr PG or random plasma glucose (if symptoms are present). Authorizing ProviderResult TypeResult StatusLijocelyn [facility] CHEMISTRY ORDERABLESFinal ResultPerforming OrganizationAddressCity/State/ZIP CodePhone Number [facility] [address] [place] [id number], [facility] * HEMOGRAM (03/18/2025 6:13 AM ANALYTICS ASSOCIATE)ComponentValueRef RangeTest MethodAnalysis TimePerformed AtPathologist SignatureWBC7.93.2 - 11.0 10*9/L105/18/2024 6:25 AM [facility] CLINICAL LABORATORYRBC5.344.14 - 5.76 10*12/L105/18/2024 6:25 AM ANALYTICS ASSOCIATE [facility]ICAL RSIHNZTQGZXZS29.512.9 - 16.9 g/dL03/18/2025 6:25 AM [facility] KEXTDALWDEXJY86.938.4 - 49.7 %03/18/2025 6:25 AM [facility] ONSUBLYYNXXLW76.781.4 - 99.0 fL03/18/2025 6:25 AM [facility] JFFRXBPANYHCD71.926.7 - 33.1 pg03/18/2025 6:25 AM [facility] FYOGUZHGJGOJUD41.431.6 - 35.5 g/dL03/18/2025 6:25 AM [facility] XLPRWYVTGAJVS33.211.3 - 14.6 %03/18/2025 6:25 AM [facility] UQHGUPTTLXEKS851146 - 375 10*L105/18/2024 6:25 AM [facility] CLINICAL LABORATORYSpecimen (Source)Anatomical Location / LateralityCollection Method / VolumeCollection TimeReceived TimeBloodBLOOD SPECIMEN / UnknownVenipuncture / Skqrfaw0803/18/2025 6:13 AM CST03/18/2025 6:22 AM [facility] Narrative Authorizing ProviderResult TypeResult StatusLilicorwin [facility] HEMATOLOGY ORDERABLESFinal ResultPerforming OrganizationAddressCity/State/ZIP CodePhone Number [facility] [address] [address], [facility] * MAGNESIUM (03/18/2025 6:13 AM ANALYTICS ASSOCIATE)ComponentValueRef RangeTest MethodAnalysis TimePerformed AtPathologist SignatureMagnesium2.31.8 - 2.7 mg/dL03/18/2025 7:06 AM [facility] CLINICAL LABORATORYSpecimen (Source)Anatomical Location / LateralityCollection Method / VolumeCollection TimeReceived TimeBloodBLOOD SPECIMEN / UnknownVenipuncture / Ercmxpi4403/18/2025 6:13 AM CST03/18/2025 6:21 AM ANALYTICS ASSOCIATE Narrative Authorizing ProviderResult TypeResult StatusKirsten [facility] CHEMISTRY ORDERABLESFinal ResultPerforming OrganizationAddressCity/State/ZIP CodePhone Number [facility] [address] [place] [address] * PHOSPHORUS (03/18/2025 6:13 AM ANALYTICS ASSOCIATE)ComponentValueRef RangeTest MethodAnalysis TimePerformed AtPathologist SignaturePhosphorus3.22.5 - 4.6 mg/dL03/18/2025 7:06 AM [facility] CLINICAL LABORATORYSpecimen (Source)Anatomical Location / LateralityCollection Method / VolumeCollection TimeReceived TimeBloodBLOOD SPECIMEN / UnknownVenipuncture / Ttqjrin0603/18/2025 6:13 AM CST03/18/2025 6:21 AM ANALYTICS ASSOCIATE Narrative Authorizing ProviderResult TypeResult StatusKirsten [facility] CHEMISTRY ORDERABLESFinal ResultPerforming OrganizationAddressCity/State/ZIP CodePhone Number [facility] [address] [place] [address] * MR CARDIAC FUNCTION W VIABILITY (03/17/2025 9:03 PM ANALYTICS ASSOCIATE)Anatomical Region LateralityModalityMagnetic ResonanceSpecimen (Source)Anatomical Location / LateralityCollection Method / VolumeCollection TimeReceived Time03/17/2025 9:03 PM ANALYTICS ASSOCIATE Narrative 03/18/2025 5:09 PM ANALYTICS ASSOCIATE This document is currently in Final Status Exam Examination: MR CARDIAC FUNCTION W VIABILITY Date: 03/17/2025 9:03 PM Indication: Chest pain/anginal equiv, ECGs or troponins abnormal; Comparison: Comparison was made with prior study of None. Cardiac MRI with and without contrast was performed on a 1.5 T scanner to evaluate myocardial morphology, function and viability, and to assess etiology of troponin elevation. 1. The left ventricle is normal in cavity size. There is normal wall thickness. Global systolic function is normal. There are no regional wall motion abnormalities. The quantitative LV ejection fraction is 58%. LV volumes absolute and indexed to BSA with age and gender-matched normal values in parentheses (mean, +/- 2SD) are listed below: EDV: 184 mL (160, 106 - 214 mL) ESV: 78 mL (54, 26 - 82 mL) EDVI: 92 mL/m2 (81, 57 - 105 mL/m2) ESVI: 39 ??mL/m2 (26, 14 - 38 mL/m2) Myocardial Mass ??137 ?? g (134, 92 - 176 g) Myocardial Mass Index ??68 ?? g/m2 (67, 49 - 85 g/m2) ?? 2. The right ventricle is normal in cavity size, wall thickness, and systolic function. The quantitative RV ejection fraction is 48 %. 3. Both atria are normal in size. 4. The aortic valve is trileaflet in morphology. There is no significant aortic valve stenosis or regurgitation. There is no significant valvular disease. 5. Delayed enhancement imaging demonstrates no evidence of myocardial infarction, or infiltrative disease. There is increased T1 values in the inferior wall. Findings are suggestive likely myocarditis. This diagnosis however is not definitive. IMPRESSION: 1. The left ventricle is normal in cavity size. There is normal wall thickness. Global systolic function is normal. There are no regional wall motion abnormalities. The quantitative LV ejection fraction is 58%. 2. The right ventricle is normal in cavity size, wall thickness, and systolic function. The quantitative RV ejection fraction is 48 %. 3. Delayed enhancement imaging demonstrates no evidence of myocardial infarction, or infiltrative disease. There is increased T1 values in the inferior wall. Findings are suggestive likely myocarditis. Clinical correlation required. Measurements: LV wall thickness - Anteroseptal: ??1.48 ?? cm LV wall thickness - Inferolateral: ??0.70 ?? cm LV wall thickness - Maximum: ??1.48 ?? cm LV end-diastolic diameter: 4.88 cm LV end-systolic diameter: 3.38 ?cm LA renée-posterior diameter: 3.48 cm Aortic root at the sinuses of Valsalva: 3.72 cm Sedation and contrast: Sedation used: ??None ?? Sedation administered: ??None ?? Contrast agent: MultiHance Volume administered: 17 mL Electronically Signed: Taiwo Hilario Dr. 03/18/2025 5:09 PM Procedure Note Taiwo Hilario MD - 03/18/2025 This document is currently in Final Status Exam Examination: MR CARDIAC FUNCTION W VIABILITY Date: 03/17/2025 9:03 PM Indication: Chest pain/anginal equiv, ECGs or troponins abnormal; Comparison: Comparison was made with prior study of None. Cardiac MRI with and without contrast was performed on a 1.5 T scanner to evaluate myocardial morphology, function and viability, and to assessetiology of troponin elevation. 1. The left ventricle is normal in cavity size. There is normal wallthickness. Global systolic function is normal. There are no regional wallmotion abnormalities. The quantitative LV ejection fraction is 58%. LV volumes absolute and indexed to BSA with age and gender-matched normalvalues in parentheses (mean, +/- 2SD) are listed below: EDV: 184 mL (160, 106 - 214 mL) ESV: 78 mL (54, 26 - 82 mL) EDVI: 92 mL/m2 (81, 57 - 105 mL/m2) ESVI: 39 mL/m2 (26, 14 - 38 mL/m2) Myocardial Mass 137 g (134, 92 - 176 g) Myocardial Mass Index 68 g/m2 (67, 49 - 85 g/m2) 2. The right ventricle is normal in cavity size, wall thickness, andsystolic function. The quantitative RV ejection fraction is 48 %. 3. Both atria are normal in size. 4. The aortic valve is trileaflet in morphology. There is no significantaortic valve stenosis or regurgitation. There is no significant valvulardisease. 5. Delayed enhancement imaging demonstrates no evidence of myocardialinfarction, or infiltrative disease. There is increased T1 values in theinferior wall. Findings are suggestive likely myocarditis. This diagnosishowever is not definitive. IMPRESSION: 1. The left ventricle is normal in cavity size. There is normal wallthickness. Global systolic function is normal. There are no regional wallmotion abnormalities. The quantitative LV ejection fraction is 58%. 2. The right ventricle is normal in cavity size, wall thickness, andsystolic function. The quantitative RV ejection fraction is 48 %. 3. Delayed enhancement imaging demonstrates no evidence of myocardialinfarction, or infiltrative disease. There is increased T1 values in theinferior wall. Findings are suggestive likely myocarditis. Clinicalcorrelation required. Measurements: LV wall thickness - Anteroseptal: 1.48 cm LV wall thickness - Inferolateral: 0.70 cm LV wall thickness - Maximum: 1.48 cm LV end-diastolic diameter: 4.88 cm LV end-systolic diameter: 3.38 cm LA renée-posterior diameter: 3.48 cm Aortic root at the sinuses of Valsalva: 3.72 cm Sedation and contrast: Sedation used: None Sedation administered: None Contrast agent: MultiHance Volume administered: 17 mL Electronically Signed: Taiwo Hilario Dr. 03/18/2025 5:09 PM Authorizing ProviderResult TypeResult StatusTaiwo [facility] MRI ORDERABLES Final Result * CT CARDIAC EXTRA CARD STRUCT (03/17/2025 5:11 PM ANALYTICS ASSOCIATE)Anatomical Region LateralityModalityComputed TomographySpecimen (Source)Anatomical Location / LateralityCollection Method / VolumeCollection TimeReceived Time03/17/2025 5:11 PM ANALYTICS ASSOCIATE Narrative 03/17/2025 5:19 PM ANALYTICS ASSOCIATE This document is currently in Final Status Exam CT CARDIAC EXTRA CARD STRUCT CLINICAL HISTORY: Chest pain/anginal equiv, ECGs or troponins abnormal; COMPARISON: None. TECHNIQUE: Limited CT of the chest to evaluate extracardiac structures after the administration of 114 mL of Omnipaque 350 FINDINGS: Partially visualized lungs are without infiltrate, atelectasis, or nodule. There is no pericardial or pleural effusion. The heart is normal in size. The aortic arch and great vessels are unremarkable. There is no mediastinal, hilar or axillary lymphadenopathy. The visualized bony structures are intact without lesion. Limited visualization of the upper abdominal organs is within normal limits. IMPRESSION: No incidental findings on this limited CT of the chest without contrast. Electronically Signed: Sharan Carrillo MD 03/17/2025 5:19 PM Procedure Note Sharan Kolb MD - 03/17/2025 This document is currently in Final Status Exam CT CARDIAC EXTRA CARD STRUCT CLINICAL HISTORY: Chest pain/anginal equiv, ECGs or troponins abnormal; COMPARISON: None. TECHNIQUE: Limited CT of the chest to evaluate extracardiac structuresafter the administration of 114 mL of Omnipaque 350 FINDINGS: Partially visualized lungs are without infiltrate, atelectasis, or nodule.There is no pericardial or pleural effusion. The heart is normal in size.The aortic arch and great vessels are unremarkable. There is nomediastinal, hilar or axillary lymphadenopathy. The visualized bonystructures are intact without lesion. Limited visualization of the upper abdominal organs is within normallimits. IMPRESSION: No incidental findings on this limited CT of the chest without contrast. Electronically Signed: Sharan Carrillo MD 03/17/2025 5:19 PM Authorizing ProviderResult TypeResult StatusRammallory Hilario MD CT ORDERABLESFinal Result * CT ANGIO CORONARY ART CALC EVAL CARDIAC S M (03/17/2025 5:07 PM ANALYTICS ASSOCIATE)Anatomical RegionLateralityModalityChestComputed TomographySpecimen (Source)Anatomical Location / LateralityCollection Method / VolumeCollection TimeReceived Time 03/17/2025 5:07 PM ANALYTICS ASSOCIATE Narrative 03/17/2025 5:39 PM ANALYTICS ASSOCIATE This document is currently in Final Status Exam Examination: CT ANGIO CORONARY ART CALC EVAL CARDIAC S M Date: 03/17/2025 5:07 PM Indication: Chest pain/anginal equiv, ECGs or troponins abnormal; Region of Interest and AdditionalInformation->heart CORONARY ARTERIES: Left Main: Widely patent with no soft or hard plaques. Left Anterior Descending artery: Widely patent with no soft or hard plaques. Circumflex artery: Widely patent with no soft or hard plaques. Right Coronary artery: Widely patent with no soft or hard plaques. Right dominant system. CALCIUM SCORE: 0 NON CORONARY CARDIAC STRUCTURES: The left ventricle, right ventricle, left and right atrium all have normal size. The mitral and aortic valves have normal structure and mobility with no calcification or thickening. Aortic root and ascending aorta have normal diameters. There is no atherosclerosis of aorta. Pericardium has normal th ickness. ?? Non Cardiac structures are reported separately. RADIATION: 5 mSv. CONCLUSION: 1. Patent coronary arteries. 2. Structurally normal heart. 3. No coronary anomalies. 4. Normal RV/LV size and systolic function. Electronically Signed: Taiwo Hilario Dr. 03/17/2025 5:39 PM Procedure Note Taiwo Hilario MD - 03/17/2025 This document is currently in Final Status Exam Examination: CT ANGIO CORONARY ART CALC EVAL CARDIAC S M Date: 03/17/2025 5:07 PM Indication: Chest pain/anginal equiv, ECGs or troponins abnormal; Regionof Interest and Additional Information->heart CORONARY ARTERIES: Left Main: Widely patent with no soft or hard plaques. Left Anterior Descending artery: Widely patent with no soft or hardplaques. Circumflex artery: Widely patent with no soft or hard plaques. Right Coronary artery: Widely patent with no soft or hard plaques. Rightdominant system. CALCIUM SCORE: 0 NON CORONARY CARDIAC STRUCTURES: The left ventricle, right ventricle, left and right atrium all have normalsize. The mitral and aortic valves have normal structure and mobility withno calcification or thickening. Aortic root and ascending aorta havenormal diameters. There is no atherosclerosis of aorta. Pericardium hasnormal thickness. Non Cardiac structures are reported separately. RADIATION: 5 mSv. CONCLUSION: 1. Patent coronary arteries. 2. Structurally normal heart. 3. No coronary anomalies. 4. Normal RV/LV size and systolic function. Electronically Signed: Taiwo Hilario Dr. 03/17/2025 5:39 PM Authorizing ProviderResult TypeResult Aster [facility] CT ORDERABLESFinal Result * (ABNORMAL) TROPONIN I (03/17/2025 5:00 AM ANALYTICS ASSOCIATE)ComponentValueRef RangeTest MethodAnalysis TimePerformed AtPathologist SignatureHigh Sensitivity Troponin I64.0(H)<=35.0 ng/L105/17/2024 5:[address] [facility] Specimen (Source)Anatomical Location / LateralityCollection Method / Volume Collection TimeReceived TimeBloodBLOOD SPECIMEN / UnknownVenipuncture / Lpmkneo5703/17/2025 5:00 AM CST03/17/2025 5:08 AM ANALYTICS ASSOCIATE Narrative Authorizing ProviderResult TypeResult StatusLc Ortega [facility] CHEMISTRY ORDERABLESFinal ResultPerforming OrganizationAddressCity/State/ZIP CodePhone Number [facility] [address] [place] [address], [facility] * XR CHEST 2 VIEWS (03/17/2025 3:15 AM ANALYTICS ASSOCIATE) Only the most recent of2 resultswithin the time period is included. Anatomical RegionLateralityModalityChestRadiographic ImagingSpecimen (Source) Anatomical Location / LateralityCollection Method / VolumeCollection Time Received Time03/17/2025 3:09 AM ANALYTICS ASSOCIATE Narrative 03/17/2025 3:17 AM ANALYTICS ASSOCIATE EXAM: XR CHEST 2 VIEWS LOCATION: [facility] DATE: 03/17/2025 INDICATION: chest pain COMPARISON: 03/16/2025 IMPRESSION: ?? Heart size and pulmonary vascularity within normal limits. No focal lung infiltrates. Osseous structures grossly intact. Visualized upper abdomen unremarkable. Electronically signed by: Juan Jose Kimbrough MD 03/17/2025 3:17 AM ANALYTICS ASSOCIATE Procedure Note Juan Jose Kimbrough MD - 03/17/2025 EXAM: XR CHEST 2 VIEWS LOCATION: [facility] DATE: 03/17/2025 INDICATION: chest pain COMPARISON: 03/16/2025 IMPRESSION: Heart size and pulmonary vascularity within normal limits. No focallung infiltrates. Osseous structures grossly intact. Visualized upperabdomen unremarkable. Electronically signed by: Juan Jose Kimbrough MD 03/17/2025 3:17 AM ANALYTICS ASSOCIATE Authorizing ProviderResult TypeResult StatusLc [facility] DIAGNOSTIC IMAGING ORDERABLESFinal Result * SARS-COV-2/INFLUENZA A AND B MOLECULAR DETECTION (03/17/2025 3:11 AM ANALYTICS ASSOCIATE) ComponentValueRef RangeTest MethodAnalysis TimePerformed AtPathologist SignatureInfluenza IKifcmajxZdhhktqg46/11/2025 3:[address] [facility] LABORATORYInfluenza NNwafklheUcypnzji33/11/2025 3:[address] [facility] PWJTOQRSTWKZHS-GqJ-4 RNA (COVID-19)NegativeNegative/Not Detected 03/17/2025 3:[address] [facility] LABORATORYSpecimen (Source) Anatomical Location / LateralityCollection Method / VolumeCollection Time Received TimeSwabENTIRE NASOPHARYNX / UnknownNon-blood collection / Unknown 03/17/2025 3:11 AM CST03/17/2025 3:11 AM ANALYTICS ASSOCIATE Narrative [facility] - 03/17/2025 3:52 AM ANALYTICS ASSOCIATE Test results should be used in combination with clinical observations, patient history and epidemiological information. Method Information This test uses the [employer] Xpert Xpress CoV-2/Flu/RSV plus assay to detect and differentiate RNA targets from SARS-CoV-2, influenza A, and/or influenza B, by real-time polymerase chain reaction (PCR)on the [employer] Instrument System. It has received Emergency Use Authorization (EUA) by the U.S. Food and Drug Administration; performance characteristics have been verified by [employer] in a manner consistent with CLIA requirements. Authorizing ProviderResult TypeResult StatusLc [facility] MICROBIOLOGY - GENERAL ORDERABLESFinal ResultPerforming OrganizationAddressCity/State/ZIP Code Phone Number [facility] [address] [place] [address], [facility] * (ABNORMAL) COMPREHENSIVE METABOLIC PANEL (03/17/2025 2:40 AM ANALYTICS ASSOCIATE)Component ValueRef RangeTest MethodAnalysis TimePerformed AtPathologist SignatureSodium 165137 - 143 mEq/L105/17/2024 3:[address] [facility] Potassium3.3(L)3.4 - 5.1 mEq/L105/17/2024 3:[address] [facility] HXCSIBYZDKKchuepeu04502 - 110 mEq/L105/17/2024 3:[address] [facility] LABORATORYCarbon Ihsioto2757 - 29 mEq/L105/17/2024 3:[address] [facility] LABORATORYAnion Gap12.03.0 - 15.0 mEq/L105/17/2024 3:[address] [facility] LABORATORYBlood Urea Mxooslrl119 - 24 mg/dL03/17/2025 3:[address] [facility] LABORATORYCreatinine0.750.70 - 1.20 mg/dL03/17/2025 3:[address] [facility] LABORATORYGlomerular Filtration Nqhf612>60 mL/min/1.73 m* 3:[address] [facility] LABORATORYComment: Risk of cardiovascular disease increases when GFR is abnormal; persistently reduced GFR values are a specific indication of CKD. This calculation uses CKD-EPI 2020 equation without adjustment for race; it has not been validated in women.Calcium9.28.4 - 10.5 mg/dL03/17/2025 3:[address] [facility] UHYJQXZRKMUvzkjgr990(H)70 - 99 mg/dL03/17/2025 3:[address] [facility] LABORATORYProtein, Total7.46.0 - 8.0 g/dL03/17/2025 3:[address] [facility] LABORATORYAlbumin3.93.5 - 5.0 g/dL03/17/2025 3:[address] [facility] LABORATORYAlkaline Jfscehbzcpx7467 - 150 IU/L105/17/2024 3:[address] [facility] LABORATORYAspartate Ybfpevcoyrhazoqv2103 - 40 IU/L 03/17/2025 3:[address] [facility] LABORATORYAlanine Aminotransferase 2210 - 48 IU/L105/17/2024 3:[address] [facility] LABORATORYBilirubin, Total0.70.2 - 1.2 mg/dL03/17/2025 3:[address] [facility] Specimen (Source)Anatomical Location / LateralityCollection Method / Volume Collection TimeReceived TimeBloodBLOOD SPECIMEN / UnknownVenipuncture / Zpwriqj8203/17/2025 2:40 AM [facility]03/17/2025 3:00 AM ANALYTICS ASSOCIATE Narrative [facility] - 03/17/2025 3:11 AM ANALYTICS ASSOCIATE Current ADA criteria for Glucose: ?Normal: 70-99 mg/dL ?Impaired Fasting Glucose: 100-125 mg/dL ?Diabetes Mellitus: at or above 126 mg/dL The diagnosis of diabetes must be confirmed on a subsequent day by measuring Fasting Plasma Glucose, 2-hr PG or random plasma glucose (if symptoms are present). Authorizing ProviderResult TypeResult StatusLc [place] CHEMISTRY ORDERABLESFinal ResultPerforming OrganizationAddressCity/State/ZIP CodePhone Number [address] * (ABNORMAL) TROPONIN I (03/17/2025 2:40 AM ANALYTICS ASSOCIATE)ComponentValueRef RangeTest MethodAnalysis TimePerformed AtPathologist SignatureHigh Sensitivity Troponin I75.7(H)<=35.0 ng/L105/17/2024 3:[address] [facility] Specimen (Source)Anatomical Location / LateralityCollection Method / Volume Collection TimeReceived TimeBloodBLOOD SPECIMEN / UnknownVenipuncture / Lawbfgq1703/17/2025 2:40 AM CST03/17/2025 3:00 AM ANALYTICS ASSOCIATE Narrative Authorizing ProviderResult TypeResult StatusLc [place] CHEMISTRY ORDERABLESFinal ResultPerforming OrganizationAddressty/State/ZIP CodePhone Number [address] * (ABNORMAL) HEMOGRAM/DIFFERENTIAL (03/17/2025 2:40 AM ANALYTICS ASSOCIATE)ComponentValueRef RangeTest MethodAnalysis TimePerformed AtPathologist IyzdfleqjNEU22.63.2 - 11.0 10*L105/17/2024 3:[address] [facility] LABORATORYRBC5.244.14 - 5.76 10*12L105/17/2024 3:[address] [facility] DLJJXALERBBRG73.912.9 - 16.9 g/dL03/17/2025 3:[address] [facility] KFTLVHQZQZSKX37.238.4 - 49.7 %03/17/2025 3:[address] [facility] EVUDLFBYWOIFP44.281.4 - 99.0 fL03/17/2025 3:[address] [facility] SORBEXWMSJGYE41.326.7 - 33.1 pg 03/17/2025 3:[address] [facility] YAWHIUZSAOKBSJ93.431.6 - 35.5 g/dL 03/17/2025 3:[address] [facility] TBNXSIMVRHMPY21.411.3 - 14.6 % 03/17/2025 3:[address] [facility] YAMEBUSWNOPUM446910 - 375 10*9/L 03/17/2025 3:[address] [facility] LABORATORYNeutrophils %61.9% 03/17/2025 3:[address] [facility] LABORATORYLymphocytes %32.1% 03/17/2025 3:[address] [facility] LABORATORYMonocytes %5.0%03/17/2025 3:[address] [facility] LABORATORYEosinophils %0.5%03/17/2025 3:[address] [facility] LABORATORYBasophils %0.4%03/17/2025 3:[address] [facility] LABORATORYImmature Granulocytes %0.1%03/17/2025 3:03 AM [facility] LABORATORYNeutrophils Absolute6.61.5 - 7.6 10*9/L 03/17/2025 3:[address] [facility] LABORATORYLymphocytes Absolute3.4 (H)0.8 - 3.3 10*/L105/17/2024 3:[address] [facility] Monocytes Absolute0.50.2 - 0.9 10*9L105/17/2024 3:[address] [facility] LABORATORYEosinophils Absolute0.10.0 - 0.4 10*L105/17/2024 3:[address] [facility] LABORATORYBasophils Absolute0.00.0 - 0.1 10*9/L 03/17/2025 3:[address] [facility] LABORATORYImmature Granulocytes Absolute0.010.00 - 0.06 10*L105/17/2024 3:[address] [facility] LABORATORYSpecimen (Source)Anatomical Location / LateralityCollection Method / VolumeCollection TimeReceived TimeBloodBLOOD SPECIMEN / UnknownVenipuncture / Vzacgys6403/17/2025 2:40 AM CST03/17/2025 3:00 AM ANALYTICS ASSOCIATE Narrative Authorizing ProviderResult TypeResult StatusLc Ortega MD HEMATOLOGY ORDERABLESFinal ResultPerforming OrganizationAddressCity/State/[place] [address], [facility] * LIPASE (03/17/2025 2:40 AM ANALYTICS ASSOCIATE)ComponentValueRef RangeTest MethodAnalysis Time Performed AtPathologist ZllyqzareByaztj5763 - 84 IU/L105/17/2024 3:[address] [facility] LABORATORYSpecimen (Source)Anatomical Location / Laterality Collection Method / VolumeCollection TimeReceived TimeBloodBLOOD SPECIMEN / UnknownVenipuncture / Qhxygez2703/17/2025 2:40 AM [facility]03/17/2025 3:00 AM ANALYTICS ASSOCIATE Narrative Authorizing ProviderResult TypeResult StatusLc Ortega MD CHEMISTRY ORDERABLESFinal ResultPerforming OrganizationAddressCity/State/[place] [address], [facility] * ECHO ADULT COMPLETE (03/16/2025 12:40 PM ANALYTICS ASSOCIATE)ComponentValueRef RangeTest MethodAnalysis TimePerformed AtPathologist SignatureLV biplane EF68%LV A2C EF 70%LV A4C EF63%LV stroke vol jlydldz79.94mlLV stroke volume index41.43mL/m2LV EF Oxcrdolzf47.16%LV stroke vol A4C63.45mlLV stroke vol A2C82.25pdSUKOg45.0mm LVIDs index15.41mm/g3JYWIa11.0mmLV LVIDd index22.90mm/m2IVSd haioiuqvv44.6mm LVPWd12.6mmLV Systolic Iefwop62.73mLLV ESV index BP17.78mL/m2LV ESV A2C35.24mL LV ESV index A2C17.54ml/m2LV EDV BP112.67mLLV ESV A4C37.51mLLV end diastolic volume index56.08mL/m2LV ESV index A4C18.67ml/m2LV EDV T0Z144.89mLLV EDV index A2C58.68ml/m2LV EDV R4O288.96mLLV EDV index A4C50.25ml/m2LVOT jvmilxqv63.3mm LVOT VTI28.33cmFractional Shortening 2D33%LV relative wall jziozfnqw07%LV diastolic major axis A2C95.3mmLV diastolic major axis A4C89.3mmLV systolic major axis A2C79.5mmLV systolic major axis A4C75.8mmLV mass doilg454.98g/m2LV mass M-Fdbd563.96gLV mass 2D Pt Ht126.57g/mLVM Wuwq527.35gMV E pk vel0.71m/sMV pk A anup Doppler0.61m/sMV E/A ratio1.17MV e' lateral vel0.11m/sMV deceleration bfgi345.97msMV E/e' lateral6.59LVOT pk vel1.37m/sLA area A2C17.09av4PR area A4C18.67uo9RC major axis55.0mmLA ESV A4C BSA48.7mlLA ESV A2C BSA47.9mlLA major A4C56.2kqVQRXN51.0mmRA area ES16.47gq0Cip RA dtxahxdt8ecMcYKSE area2.37mg7CL mean erqfpgxs0hpYwFN pk knxg9yeKfWW mn anup ant0.87m/Jose peak velocity1.35m/Jose VTI27.11cmLVOT mn grad Doppler3.80mmHgLVOT pk pgpd0eeHdYA area index1.53mm2/m2 AV area by continuity VTI3.34ub5BE area pk vel2.74rj6SD stroke vol BP83.24mL Dimensionless Index1.05AV max anup LVOT to max anup AV1.02MV dec slope3.51m/s2MV A to E0.86Aortic root ryrbecjy23.3mmAscending aortic zwqtpeur44.3mmAscending aortic diameter indexed to body surface area18.08mm/m2IVC vaeqyvwy92.3mmTDI S' 0.2m/sLV stroke vol index BP41.43ml/m2LV ESV 2D37.82mLLV EDV 2D97.37mLLV SI 2D AEKPGGNLU97.64ml/m2LV ESV 2D TEICHHOLZ PT HT0.22ml/cmLV ESV 2D TEICHHOLZ BSA 18.82ml/m2LV EDV 2D TEICHHOLZ PT HT0.56ml/cmLV EDV 2D TEICHHOLZ BSA48.47ml/m2 LVOT mn vel0.89m/sLV stroke vol Mtyifumgd95.55mlSpecimen (Source)Anatomical Location / LateralityCollection Method / VolumeCollection TimeReceived Time Narrative Lc Green MD - 03/16/2025 12:59 PM ANALYTICS ASSOCIATE Left ventricle size is normal. Normal wall thickness. Normal left ventricular systolic function. LV biplane EF is 68%. Normal wall motion. Normal diastolic function. Normal left ventricular filling pressure. ?Right ventricle size is normal. Normal systolic function. ?No significant valvular heart disease. ?No pericardial effusion. ?No prior studies for comparison. Left Ventricle Left ventricle size is normal. Normal wall thickness. Normal left ventricular systolic function. LVbiplane EF is 68%. Normal wall motion. Normal diastolic function. Normal left ventricular filling pressure. Right Ventricle Right ventricle size is normal. Normal systolic function. Left Atrium Left atrium size is normal. Right Atrium Right atrium size is normal. IVC/SVC Inferior vena cava size is normal and decreases > 50% indicating normal right atrial pressure (3mmHg). Right ventricle systolic pressure is unable to be assessed. Mitral Valve There is no mitral regurgitation. No mitral stenosis. Tricuspid Valve There is physiologic tricuspid regurgitation. No tricuspid stenosis. Aortic Valve There is no aortic regurgitation. No aortic stenosis. Pulmonic Valve There is no pulmonic regurgitation. No pulmonic stenosis. Ascending Aorta Normal sized aortic root. Normal sized ascending aorta. Aortic root diameter is 36.3 mm. Ascending aortic diameter is 36.3 mm. Pericardium No pericardial effusion. Study Details Study quality was adequate. Most measurements were suitable for reporting. A complete 2D, color flow Doppler and spectral Doppler echocardiogram was performed. The apical, parasternal, subcostal and suprasternal views were obtained. Rhythm: sinus. Prior Study No prior study available for comparison. Authorizing ProviderResult TypeResult StatusRobert D Zoevii DOCV ECHO PROCEDURES Final Result * (ABNORMAL) TROPONIN I (03/16/2025 11:55 AM ANALYTICS ASSOCIATE)ComponentValueRef RangeTest MethodAnalysis TimePerformed AtPathologist SignatureHigh Sensitivity Troponin I48.3(H)<=35.0 ng/L105/16/2024 12:[facility] Specimen (Source)Anatomical Location / LateralityCollection Method / Volume Collection TimeReceived TimeBloodBLOOD SPECIMEN / UnknownVenipuncture / Xxlchkw8003/16/2025 11:55 AM CST03/16/2025 12:20 PM ANALYTICS ASSOCIATE Narrative Authorizing ProviderResult TypeResult StatusRobert D Zoevii DOEC CHEMISTRY ORDERABLESFinal ResultPerforming OrganizationAddressCity/State/ZIP CodePhone Number [facility] [address] [place] [address] * POCUS CARDIAC (03/16/2025 7:13 AM ANALYTICS ASSOCIATE)Anatomical RegionLateralityModalityPOCUS Specimen (Source)Anatomical Location / LateralityCollection Method / Volume Collection TimeReceived Time Narrative 03/16/2025 7:13 AM ANALYTICS ASSOCIATE Pierce Donohue DO 03/16/2025 7:16 AM Heart Limited POC Date/Time: 03/16/2025 7:13 AM Performed by: Pierce Donohue DO Authorized by: Pierce Donohue, ?? Attending Provider: ??Pierce Donohue DO Heart Procedure Details: ??Indications: chest pain ?Assessment for: cardiac function and pericardial effusion ?Technique: ??Subxiphoid and apical 4-chamber Heart Findings: ??Cardiac activity: ??Normal ??LV systolic function: ??Normal (greater than 50%) ??RV size: ??Normal ??Pericardial effusion: ??Not visualized Heart Interpretation: ??Interpretation: ??Normal limited study Signature: ??I have reviewed and captured appropriate images to support the above findings. ?? Authorizing ProviderResult TypeResult StatusBrett A May DOEC POCUS IMAGING ORDERABLESFinal Result * (ABNORMAL) URINE DRUG SCREEN (03/16/2025 5:04 AM [facility])ComponentValueRef Range Test MethodAnalysis TimePerformed AtPathologist SignatureUrine Amphetamines ScreenPositive(A)Positive cut-off concentration: 1000 ng/mL03/16/2025 5:[address] [facility] LABORATORYUrine Barbiturates ScreenNegativePositive cut-off concentration: 200 ng/mL03/16/2025 5:[address] [facility] LABORATORYUrine Benzodiazepines ScreenNegativePositive cut-off concentration: 200 ng/mL03/16/2025 5:[address] [facility] LABORATORYUrine Buprenorphine ScreenNegativePositive cut-off concentration: 5 ng/mL03/16/2025 5:[address] [facility] LABORATORYUrine Cocaine ScreenNegativePositive cut-off concentration: 300 ng/mL03/16/2025 5:[address] [facility] LABORATORYUrine Methadone ScreenNegativePositive cut-off concentration: 300 ng/mL03/16/2025 5:[address] [facility] LABORATORYUrine Opiates Screen NegativePositive cut-off concentration:300 ng/mL03/16/2025 5:[address] [facility] LABORATORYUrine Oxycodone ScreenNegativePositive cut-off concentration: 300 ng/mL03/16/2025 5:[address] [facility] Urine Phencyclidine (PCP) ScreenNegativePositive cut-off concentration: 25 ng/mL03/16/2025 5:[address] [facility] LABORATORYUrine Carboxy-THC ScreenPositive(A)Positive cut-off concentration: 50 ng/mL03/16/2025 5:[address] [facility] LABORATORYSpecimen (Source)Anatomical Location / LateralityCollection Method / VolumeCollection TimeReceived TimeUrineURINE SPECIMEN COLLECTION, CLEAN CATCH / UnknownNon-blood collection / Unknown 03/16/2025 5:04 AM [facility]03/16/2025 5:11 AM ANALYTICS ASSOCIATE Narrative [facility] - 03/16/2025 5:47 AM ANALYTICS ASSOCIATE Positive results are unconfirmed and will only [...] Legal or employment purposes. Authorizing ProviderResult TypeResult StatusBrett A [facility] URINE ORDERABLES Final ResultPerforming OrganizationAddressty/[facility] CodePhone Number [address] * (ABNORMAL) TROPONIN I (03/16/2025 3:34 AM ANALYTICS ASSOCIATE)ComponentValueRef RangeTest MethodAnalysis TimePerformed AtPathologist SignatureHigh Sensitivity Troponin I64.3(H)<=35.0 ng/L105/16/2024 4:[address] [facility] Specimen (Source)Anatomical Location / LateralityCollection Method / Volume Collection TimeReceived TimeBloodBLOOD SPECIMEN / UnknownVenipuncture / Hwlufrs0103/16/2025 3:34 AM CST03/16/2025 3:36 AM ANALYTICS ASSOCIATE Narrative Authorizing ProviderResult TypeResult StatusPage Hospitaltt [facility] CHEMISTRY ORDERABLESFinal ResultPerforming OrganizationAddressty/State/ZIP CodePhone Number [address] * HIV ANTIGEN/ANTIBODY SCREEN (03/16/2025 1:56 AM ANALYTICS ASSOCIATE)ComponentValueRef Range Test MethodAnalysis TimePerformed AtPathologist SignatureHIV Antigen/Antibody NnktrhwfthgQidrsdvzrtp78/10/2025 3:48 PM [facility] Specimen (Source)Anatomical Location / LateralityCollection Method / Volume Collection TimeReceived TimeBloodBLOOD SPECIMEN / UnknownVenipuncture / Utsgvcq5003/16/2025 1:56 AM CST03/16/2025 5:11 AM ANALYTICS ASSOCIATE Narrative [facility] - 03/16/2025 3:48 PM ANALYTICS ASSOCIATE HIV Screen includes testing for HIV-1 antigen and antibodies to both HIV-1 and HIV-2. Authorizing ProviderResult TypeResult StatusBrett A May DO CHEMISTRY ORDERABLESFinal ResultPerforming OrganizationAddressCity/State/ZIP CodePhone Number [facility] [address] [place] [id number] * CHLAMYDIA TRACHOMATIS/NEISSERIA GONORRHOEAE MOLECULAR DETECTION (03/16/2025 1:56 AM ANALYTICS ASSOCIATE)ComponentValueRef RangeTest MethodAnalysis TimePerformed At Pathologist SignatureChlamydia trachomatisNot DetectedNot Kqvhofry81/10/2025 3:[address] [facility] LABORATORYNeisseria gonorrhoeaeNot DetectedNot Rvpgsczm66/10/2025 3:[address] [facility] LABORATORYSpecimen (Source) Anatomical Location / LateralityCollection Method / VolumeCollection Time Received TimeUrineVOIDED URINE SPECIMEN / UnknownNon-blood collection / Cqivxjt5403/16/2025 1:56 AM CST03/16/2025 2:08 AM ANALYTICS ASSOCIATE Narrative [facility] - 03/16/2025 3:39 AM ANALYTICS ASSOCIATE Test detects target RNA/DNA by real-time polymerase chain reaction (PCR) on the [employer] GeneXpert Dx System. Authorizing ProviderResult TypeResult StatusBrett A [facility] MICROBIOLOGY - GENERAL ORDERABLESFinal ResultPerforming OrganizationAddressCity/State/[facility] Code Phone Number [facility] [address] [place] [id number] * CHLAMYDIA/GONORRHOEAE AMPLIFIED RNA (03/16/2025 1:55 AM ANALYTICS ASSOCIATE)ComponentValueRef RangeTest MethodAnalysis TimePerformed AtPathologist SignatureCTRNA Source: Gkvpeliyqa40/11/2025 7:56 PM [facility]IESChlamydia trachomatis PbqbuvgjYaooxtfx48/11/2025 7:56 PM [facility] LABORATORIESComment: ADDITIONAL INFORMATION This report is intended for use in clinical monitoring and management of patients. It is not intended for use in medical-legal applications. GCRNA Source:Tlsqafeclj07/11/2025 7:56 PM [facility] LABORATORIESNeisseria gonorrhoeae amplified XPUXqzyljvhHeonlzia49/11/2025 7:56 PM [facility]ORATORIESComment: ADDITIONAL INFORMATION This report is intended for use in clinical monitoring and management of patients. It is not intended for use in medical-legal applications. Test Performed by: [address] [address] [employer]: Hossein Ponce Ph.D.; CLIA# [id number] Specimen (Source)Anatomical Location / LateralityCollection Method / Volume Collection TimeReceived TimeSwabORAL CAVITY SPECIMEN / UnknownNon-blood collection / Khjcsfy4403/16/2025 1:55 AM CST03/16/2025 8:41 AM ANALYTICS ASSOCIATE Narrative Authorizing ProviderResult TypeResult StatusBrett A May DOEC LAB SEND OUT ORDERABLESFinal ResultPerforming OrganizationAddressCity/State/[facility] CodePhone Number [address] [id number] [phone] * HOLD LI HEPARIN (03/16/2025 1:45 AM ANALYTICS ASSOCIATE)Specimen (Source)Anatomical Location / LateralityCollection Method / VolumeCollection TimeReceived TimeBloodBLOOD SPECIMEN / UnknownVenipuncture / Xarabzs4403/16/2025 1:45 AM CST03/16/2025 1:54 AM ANALYTICS ASSOCIATE Narrative Authorizing ProviderResult TypeResult StatusBrett A May DOEC CHEMISTRY ORDERABLESFinal ResultPerforming OrganizationAddressCity/State/ZIP CodePhone Number [facility] [address] [place] [address], [facility] * HOLD NA CITRATE (03/16/2025 1:45 AM ANALYTICS ASSOCIATE)Specimen (Source)Anatomical Location / LateralityCollection Method / VolumeCollection TimeReceived TimeBloodBLOOD SPECIMEN / UnknownVenipuncture / Hucmjib5103/16/2025 1:45 AM CST03/16/2025 1:54 AM ANALYTICS ASSOCIATE Narrative Authorizing ProviderResult TypeResult StatusBrett A May DOEC HEMATOLOGY ORDERABLESFinal ResultPerforming OrganizationAddressCity/State/ZIP CodePhone Number [facility] [address] [place] [address] * HOLD PURPLE TUBE (03/16/2025 1:45 AM ANALYTICS ASSOCIATE)Specimen (Source)Anatomical Location / LateralityCollection Method / VolumeCollection TimeReceived TimeBloodBLOOD SPECIMEN / UnknownVenipuncture / Exryiyq7303/16/2025 1:45 AM CST03/16/2025 1:54 AM ANALYTICS ASSOCIATE Narrative Authorizing ProviderResult TypeResult StatusBrett A May DOEC HEMATOLOGY ORDERABLESFinal ResultPerforming OrganizationAddressty/State/ZIP CodePhone Number [facility] [address] [place] [address] * HOLD SERUM TUBE (03/16/2025 1:45 AM ANALYTICS ASSOCIATE)Specimen (Source)Anatomical Location / LateralityCollection Method / VolumeCollection TimeReceived TimeBloodBLOOD SPECIMEN / UnknownVenipuncture / Jvspkmg4503/16/2025 1:45 AM CST03/16/2025 1:54 AM ANALYTICS ASSOCIATE Narrative Authorizing ProviderResult TypeResult StatusBrett A May DOEC CHEMISTRY ORDERABLESFinal ResultPerforming OrganizationAddressty/[facility]/ZIP CodePhone Number [facility] [address] [place] [address] * (ABNORMAL) COMPREHENSIVE METABOLIC PANEL (03/16/2025 1:45 AM ANALYTICS ASSOCIATE)Component ValueRef RangeTest MethodAnalysis TimePerformed AtPathologist SignatureSodium 068822 - 143 mEq/L105/16/2024 2:[address] [facility] Potassium3.1(L)3.4 - 5.1 mEq/L105/16/2024 2:[address] [facility] DDGDNIAWOITptusuku44585 - 110 mEq/L105/16/2024 2:[address] [facility] LABORATORYCarbon Ltnayqf4304 - 29 mEq/L105/16/2024 2:[address] [facility] LABORATORYAnion Gap11.03.0 - 15.0 mEq/L105/16/2024 2:[address] [facility] LABORATORYBlood Urea Gnwduvpj88 - 24 mg/dL03/16/2025 2:[address] [facility] LABORATORYCreatinine0.730.70 - 1.20 mg/dL03/16/2025 2:[address] [facility] LABORATORYGlomerular Filtration Wpxl390>60 mL/min/1.73 m* 2:[address] [facility] LABORATORYComment: Risk of cardiovascular disease increases when GFR is abnormal; persistently reduced GFR values are a specific indication of CKD. This calculation uses CKD-EPI 2020 equation without adjustment for race; it has not been validated in women.Calcium8.88.4 - 10.5 mg/dL03/16/2025 2:[address] [facility] SAWTNNMXWUXvichkc248(H)70 - 99 mg/dL03/16/2025 2:[address] [facility] LABORATORYProtein, Total7.36.0 - 8.0 g/dL03/16/2025 2:[address] [facility] LABORATORYAlbumin3.83.5 - 5.0 g/dL03/16/2025 2:[address] [facility] LABORATORYAlkaline Ubvadqrouir3491 - 150 IU/L105/16/2024 2:[address] [facility] LABORATORYAspartate Vfsmkabyuuolmjhh0575 - 40 IU/L 03/16/2025 2:[address] [facility] LABORATORYAlanine Aminotransferase 2110 - 48 IU/L105/16/2024 2:[address] [facility] LABORATORYBilirubin, Total0.70.2 - 1.2 mg/dL03/16/2025 2:[address] [facility] Specimen (Source)Anatomical Location / LateralityCollection Method / Volume Collection TimeReceived TimeBloodBLOOD SPECIMEN / UnknownVenipuncture / Cfmupma6903/16/2025 1:45 AM CST03/16/2025 1:54 AM ANALYTICS ASSOCIATE Narrative [facility] - 03/16/2025 2:20 AM ANALYTICS ASSOCIATE Current ADA criteria for Glucose: ?Normal: 70-99 mg/dL ?Impaired Fasting Glucose: 100-125 mg/dL ?Diabetes Mellitus: at or above 126 mg/dL The diagnosis of diabetes must be confirmed on a subsequent day by measuring Fasting Plasma Glucose, 2-hr PG or random plasma glucose (if symptoms are present). Authorizing ProviderResult TypeResult StatusBrett A May DOEC CHEMISTRY ORDERABLESFinal ResultPerforming OrganizationAddressCity/State/ZIP CodePhone Number [facility] [address] [place] [id number] * (ABNORMAL) TROPONIN I (03/16/2025 1:45 AM ANALYTICS ASSOCIATE)ComponentValueRef RangeTest MethodAnalysis TimePerformed AtPathologist SignatureHigh Sensitivity Troponin I67.4(H)<=35.0 ng/L105/16/2024 2:[address] [facility] Specimen (Source)Anatomical Location / LateralityCollection Method / Volume Collection TimeReceived TimeBloodBLOOD SPECIMEN / UnknownVenipuncture / Fshkbhg4303/16/2025 1:45 AM CST03/16/2025 1:54 AM ANALYTICS ASSOCIATE Narrative Authorizing ProviderResult TypeResult StatusBrett A May DOEC CHEMISTRY ORDERABLESFinal ResultPerforming OrganizationAddressCity/State/[facility] CodePhone Number [facility] [address] [place] [address] * HEMOGRAM/DIFFERENTIAL (03/16/2025 1:45 AM ANALYTICS ASSOCIATE)ComponentValueRef RangeTest MethodAnalysis TimePerformed AtPathologist SignatureWBC8.33.2 - 11.0 10*9/L 03/16/2025 1:[address] [facility] LABORATORYRBC5.054.14 - 5.76 10*12/L105/16/2024 1:[address] [facility] UFEWGODYZAPJB89.312.9 - 16.9 g/dL03/16/2025 1:[address] [facility] SSYCSMIKRICLA51.238.4 - 49.7 % 03/16/2025 1:[address] [facility] SBOUHSTDFPMNN09.581.4 - 99.0 fL 03/16/2025 1:[address] [facility] PYALCZFAMXOXJ98.326.7 - 33.1 pg 03/16/2025 1:[address] [facility] PLKPOVBIDPWKHV55.631.6 - 35.5 g/dL 03/16/2025 1:[address] [facility] XSLKFZLMRZONA85.311.3 - 14.6 % 03/16/2025 1:[address] [facility] LWQZLDTXTNJHH781797 - 375 10*9/L 03/16/2025 1:[address] [facility] LABORATORYNeutrophils %56.5% 03/16/2025 1:[address] [facility] LABORATORYLymphocytes %35.4% 03/16/2025 1:[address] [facility] LABORATORYMonocytes %7.1%03/16/2025 1:[address] [facility] LABORATORYEosinophils %0.5%03/16/2025 1:[address] [facility] LABORATORYBasophils %0.4%03/16/2025 1:[address] [facility] LABORATORYImmature Granulocytes %0.1%03/16/2025 1:58 AM [facility] LABORATORYNeutrophils Absolute4.71.5 - 7.6 10*9/L 03/16/2025 1:[address] [facility] LABORATORYLymphocytes Absolute2.9 0.8 - 3.3 1003/16/2025 1:[address] [facility] LABORATORYMonocytes Absolute0.60.2 - 0.9 03/16/2025 1:[address] [facility] LABORATORYEosinophils Absolute0.00.0 - 0.4 03/16/2025 1:[address] [facility] LABORATORYBasophils Absolute0.00.0 - 0.1 03/16/2025 1:[address] [facility] LABORATORYImmature Granulocytes Absolute0.01 0.00 - 0.06 03/16/2025 1:[address] [facility] Specimen (Source)Anatomical Location / LateralityCollection Method / Volume Collection TimeReceived TimeBloodBLOOD SPECIMEN / UnknownVenipuncture / Cjickoc4703/16/2025 1:45 AM CST03/16/2025 1:54 AM ANALYTICS ASSOCIATE Narrative Authorizing ProviderResult TypeResult StatusBrett A May DOEC HEMATOLOGY ORDERABLESFinal ResultPerforming OrganizationAddressCity/State/[facility] CodePhone Number [facility] [address] [place] [address] * (ABNORMAL) PROTIME (03/16/2025 1:45 AM ANALYTICS ASSOCIATE)ComponentValueRef RangeTest Method Analysis TimePerformed AtPathologist SignatureINR1.2(H)0.9 - 1. 3:[address] [facility] LDNHDNUBTZKquaotk74.5(H)10.1 - 13.2 sec 03/16/2025 3:[address] [facility] LABORATORYSpecimen (Source) Anatomical Location / LateralityCollection Method / VolumeCollection Time Received TimeBloodBLOOD SPECIMEN / UnknownVenipuncture / Rbsiygb4703/16/2025 1:45 AM CST03/16/2025 1:54 AM ANALYTICS ASSOCIATE Narrative [facility] - 03/16/2025 3:18 AM ANALYTICS ASSOCIATE Suggested therapeutic INR ranges for oral anticoagulant therapy: Category ? INR Value Prophylaxis ?2.0-3.0 Treat Thrombosis or Embolism ? 2.0-3.0 Prosthetic Heart Valve ? 2.5-3.5 Authorizing ProviderResult TypeResult StatusBrett A May DOEC HEMATOLOGY ORDERABLESFinal ResultPerforming OrganizationAddressty/[facility] CodePhone Number [address] * D-DIMER (03/16/2025 1:45 AM ANALYTICS ASSOCIATE)ComponentValueRef RangeTest MethodAnalysis TimePerformed AtPathologist SignatureD-Dimer<0.29<=0.50 ug/mL FEU105/16/2024 2:[address] [facility] LABORATORYSpecimen (Source)Anatomical Location / LateralityCollection Method / VolumeCollection TimeReceived TimeBloodBLOOD SPECIMEN / UnknownVenipuncture / Cxdflpr8803/16/2025 1:45 AM CST03/16/2025 1:54 AM ANALYTICS ASSOCIATE Narrative [facility] - 03/16/2025 2:14 AM ANALYTICS ASSOCIATE The negative predictive cutoff for aid in exclusion of VTE/DVT is <=0.5 ug/ml FEU. Authorizing ProviderResult TypeResult StatusBrett A May DOEC HEMATOLOGY ORDERABLESFinal ResultPerforming OrganizationAddressty/[facility]/ZIP CodePhone Number [address] * MAGNESIUM (03/16/2025 1:45 AM ANALYTICS ASSOCIATE)ComponentValueRef RangeTest MethodAnalysis TimePerformed AtPathologist SignatureMagnesium2.01.8 - 2.7 mg/dL03/16/2025 2:[address] [facility] LABORATORYSpecimen (Source)Anatomical Location / LateralityCollection Method / VolumeCollection TimeReceived TimeBloodBLOOD SPECIMEN / UnknownVenipuncture / Keybrch4803/16/2025 1:45 AM CST03/16/2025 1:54 AM ANALYTICS ASSOCIATE Narrative Authorizing ProviderResult TypeResult StatusBrett A May DOEC CHEMISTRY ORDERABLESFinal ResultPerforming OrganizationAddressCity/State/ZIP CodePhone Number [facility] [address] [place] [address], [facility] from Last 3 Months Insurance * Guarantor: Betty Smith TypeRelation to PatientDate of BirthPhone Billing AddressPersonal/NizkdtRgfm[birth year][address] [address] [place] [address] * Guarantor: BETTY SMITH TypeRelation to PatientDate of BirthPhone Billing GzqgooyMosjknhrDcxr18/04/1991 [address] [facility] [place] [address] * Guarantor: Betty Smith TypeRelation to PatientDate of BirthPhone Billing AddressBehavioral XqpskcOwbx[birth year][address] [address] [place] [address] * Guarantor: [facility]Account TypeRelation to Patient Date of BirthPhoneBilling AddressCompany with Insurance ATTN TRACI [address] [address] * Guarantor: Vamshi Smith TypeRelation to PatientDate of BirthPhoneBilling AddressPersonal/OepqwrUkoakl[birth year][address] [place] [address] * Guarantor: Betty Smith TypeRelation to PatientDate of BirthPhone Billing PsomyudExvesTmxk[birth year][address] [address] * Guarantor: Betty Smith TypeRelation to PatientDate of BirthPhone Billing AddressPersonal/TcacgnFqzi[birth year][address] [address] * Guarantor: Vamshi Smith TypeRelation to PatientDate of BirthPhoneBilling AddressPersonal/AvycpeSmsmkj59[birth year][address] [facility] [address] Advance Directives For more information, please contact: [phone] * Full Code (Latest Code Status on File) Date ActivatedDate UorvqvduqxkQvkkadnr43/14/2025 4:55 PM05/01/2025 5:25 PM * Full Code Date ActivatedDate MlvxjdqubfyMqmuxjas61/28/2025 11:21 AM04/09/2025 8:14 PM * Full Code Date ActivatedDate RfogfkappgwKnzmbomu05/11/2025 12:48 PM03/19/2025 6:52 PM * Full Code Date ActivatedDate InactivatedComments12/31/2021 9:54 PM01/03/2022 2:10 PM Care Teams Team MemberRelationshipSpecialtyStart DateEnd Date Elsewhere, Pcp PCP - General07/18/01
--- OUTSIDE RECORDS SUMMARY | 2025-05-06 20:15 | XMS_ITS | Encounter Summary ---
Author Organization [facility] Address [address] [place] [address] Phone Care Team Providers Care Balloon Seller Name Role Phone Elsewhere, Pcp Primary Care Provider Unavailabl e Encounter Details DateTypeDepartmentCare Team (Latest Contact Info)Ckffjeisesw27/08/2025Travel Social History Tobacco UseTypesPacks/DayYears UsedDateSmoking Tobacco: Every [...] or more drinks on one occasion?Less than unotwtx9104/03/2025Hunger Vital SignAnswerDate RecordedWithin the past 12 months, [...] were you homeless or living in a longterm (including now)?Yes04/03/2025HC UtilitiesAnswerDate RecordedIn the past 12 months has the electric, gas, oil, or water company threatened to shut off services in your home?No04/03/2025EH IP Custom IPVAnswerDate RecordedDo you feel UNSAFE in any of your personal relationships with your family members or any other acquaintances?No04/13/2025Sex and Gender InformationValueDate Recorded Sex Assigned at DvxaqCxek91/27/2022 10:07 PM CDTLegal KbjVjdw5306/16/2012 2:00 AM CSTGender JiuwfqacOovw86/27/2022 10:07 PM CDTSexual OrientationStraight 04/19/2025 4:12 PM CSTdocumented as of this encounter Functional Status * Patient's Vision Adequate to Safely Complete Daily ActivitiesAnswerDate of DnaylsmfscCksrwgKcl19/28/2025 11:34 AM Joselyn Berrios RN * Patient's Memory Adequate to Safely Complete Daily ActivitiesAnswerDate of CuyrtiqtciVhwacmGmb60/28/2025 11:34 AM Joselyn Berrios RN documented as of this encounter Mental Status * Patient's Judgment Adequate to Safely Complete Daily ActivitiesAnswerEntry WaeuPnnaojYsq72/28/2025 11:34 AM Joselyn Berrios RN documented in this encounter Plan of Treatment Not on file documented as of this encounter Visit Diagnoses Not on filedocumented in this encounter Care Teams Team MemberRelationshipSpecialtyStart DateEnd Date Elsewhere, Pcp PCP - General07/18/01documented as of this encounter
--- OUTSIDE RECORDS SUMMARY | 2025-05-06 20:15 | XMS_ITS | Encounter Summary ---
Author Organization [facility] Address [address] [place] [address] Phone Care Team Providers Care Helmet Hat Sweatband Puncher Name Role Phone Elsewhere, Pcp Primary Care Provider Unavailabl e Encounter Details DateTypeDepartmentCare Team (Latest Contact Info)Yvhytjieoyx52/28/2025Travel Social History Tobacco UseTypesPacks/DayYears UsedDateSmoking Tobacco: Every [...] or more drinks on one occasion?Less than dwjqdcx7104/03/2025Hunger Vital SignAnswerDate RecordedWithin the past 12 months, [...] were you homeless or living in a penitentiary (including now)?Yes04/03/2025HC UtilitiesAnswerDate RecordedIn the past 12 months has the electric, gas, oil, or water company threatened to shut off services in your home?No04/03/2025EH IP Custom IPVAnswerDate RecordedDo you feel UNSAFE in any of your personal relationships with your family members or any other acquaintances?Yes04/03/2025Sex and Gender InformationValueDate RecordedSex Assigned at RqkdaVipd95/27/2022 10:07 PM CDTLegal NzmBfim2706/16/2012 2:00 AM CSTGender XzfnqetiDkzu30/27/2022 10:07 PM CDTSexual OrientationStraight 04/19/2025 4:12 PM CSTdocumented as of this encounter Functional Status * Patient's Vision Adequate to Safely Complete Daily ActivitiesAnswerDate of TkysrqdnemVgbwwjUvy96/28/2025 11:34 AM Joselyn Berrios RN * Patient's Memory Adequate to Safely Complete Daily ActivitiesAnswerDate of QosqtfygqrDjwwkfJwn86/28/2025 11:34 AM Joselyn Berrios RN documented as of this encounter Mental Status * Patient's Judgment Adequate to Safely Complete Daily ActivitiesAnswerEntry TgfwKxtrknUon54/28/2025 11:34 AM Joselyn Berrios RN documented in this encounter Plan of Treatment Not on file documented as of this encounter Visit Diagnoses Not on filedocumented in this encounter Care Teams Team MemberRelationshipSpecialtyStart DateEnd Date Elsewhere, Pcp PCP - General07/18/01documented as of this encounter
[2025-05-06 20:19] VITALS: BP 143/89; PULSE 83; RESP 18; TEMP 36.5; O2SAT 97; BMI 29.6
--- NOTE | 2025-05-06 21:02 | ED_ITS ---
HPI - General Adult General Chief complaint: Unspecified Complaint, Adult Stated complaint: not feeling good Time Seen by Provider: 05/06/25 20:15 History of Present Illness HPI narrative: This 34-year-old male comes in stating that he does not feel right. He does not really specify what this means for him but states that he is mental functions are slower than normal. He states that he was exercising earlier today and after this he was sitting in the car and felt like he could not put his thoughts together is nicely as he wanted to. He does not report any fevers or sign of infection. He is not on any new medications. No street drugs or alcohol. He states that he would like some lab work done. He states that he has been feeling this way for a while and reports that is primarily a feeling but no outward signs and symptoms otherwise. He does arrive here with reassuring vital signs. Related Data Allergies Allergy/AdvReac Type Severity Reaction Status Date / Time Bleach (Sodium Hypochlorite) Allergy Unknown rash Verified 03/31/24 14:53 Review of Systems Status of ROS: Reports: 10 or more systems reviewed and unremarkable except as noted in History and below Narrative: Constitutional: No fevers, no weight gain or loss. Eyes: No discharge. No vision changes. HENT: No congestion, no sore throat, no ear pain. Cardiovascular: No chest pain, no palpitations. Respiratory: No shortness of breath, no wheezes, no cough. Gastrointestinal: No abdominal pain, no vomiting, no diarrhea. Genitourinary: No dysuria, no hematuria. Musculoskeletal: Normal range of motion. Skin: No rashes, no pruritis. Neurological: No dizziness, weakness, sensory change, speech change. Endo/Heme/Allergies: No bruising or bleeding. No polydipsia. Pysch: no suicidality, no anxiety, no insomnia. All other systems reviewed and are negative. 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 HEENT: Normocephalic, atraumatic. Neck: Normal range of motion. Nontender. Supple. Heart: Regular. No murmurs. Normal rate. Intact distal pulses. Lungs: Clear to auscultation. No chest discomfort. No wheezes, rhonchi, or rales. Abdomen: Normal bowel sounds. Nontender. No rebound tenderness. Genitalia: Deferred. Back: No midline tenderness. Normal range of motion. Extremities: Normal range of motion. No injury. Skin: Intact. No rash. Warm. No erythema or pallor. Neurologic: No altered sensation. No weakness. Alert and oriented. Speech is normal. No facial asymmetry. Psychiatric: No suicidality. No anxiety or depression. No insomnia. Nursing notes and vitals signs are reviewed. Const: Vital Signs, click to edit/add: Vital Signs - 24 hr 05/06/25 20:19 Temperature 97.7 F Pulse Rate [Left P ulse Oximeter] 83 Respiratory Rate 18 Blood Pressure [Ri ght Upper Arm] 143/89 H Pulse Oximetry 97 Oxygen Delivery Me thod Room Air Course Vital Signs Vital signs: Initial Vital Signs Temperature 97.7 F 05/06/25 20:19 Temperature Source Temporal Artery Scan 05/06/25 20:19 Pulse Rate 83 05/06/25 20:19 Pulse Rhythm Regular 05/06/25 20:19 Respiratory Rate 18 05/06/25 20:19 Blood Pressure 143/89 H 05/06/25 20:19 Blood Pressure Mean 107 H 05/06/25 20:19 Blood Pressure Position Sitting 05/06/25 20:19 Pulse Oximetry 97 05/06/25 20:19 Oxygen Delivery Method Room Air 05/06/25 20:19 Vital Signs Temperature 97.7 F 05/06/25 20:19 Pulse Rate 83 05/06/25 20:19 Respiratory Rate 18 05/06/25 20:19 Blood Pressure 143/89 H 05/06/25 20:19 Pulse Oximetry 97 05/06/25 20:19 Oxygen Delivery Method Room Air 05/06/25 20:19 Temperature 97.7 F 05/06/25 20:19 Pulse Rate 83 05/06/25 20:19 Respiratory Rate 18 05/06/25 20:19 Blood Pressure 143/89 H 05/06/25 20:19 Pulse Oximetry 97 05/06/25 20:19 Oxygen Delivery Method Room Air 05/06/25 20:19 Medications Administered Medications: Generic Name Dose Route Start Last Admin Trade Name Sarina PRN Reason Stop Dose Admin Ibuprofen 600 mg 05/06/25 22:30 05/06/25 22:34 Ibuprofen 200 Mg Tablet PO 05/06/25 22:31 600 mg ONCE ONE Administration Medical Decision Making MDM Narrative Medical decision making narrative: This patient comes in stating that he feels like his memory isn't working right or that he is thinking kind of slowly. He arrives with normal vital signs. He did want labs checked and these were obtained and returned with reassuring results. This was satisfying for him. He appears completely normal to me despite feeling that he is not thinking as rapidly as he would like to. His conversation is normal. He is okay to be discharged home. He did receive ibuprofen 600 mg orally. Lab Data Labs: Lab Results 05/06/25 Range/Units 21:30 WBC 12.69 H (4.50-11.00) K/uL RBC 5.04 (4.30-5.90) m/uL Hgb 15.4 (13.5-17.5) gm/dL Hct 45.4 (37.0-53.0) % MCV 90 (80-100) fL MCH 31 (26-34) pg MCHC 34 (32-36) gm/dL RDW Coeff of Sudheer 13.2 (11.5-15.5) % Plt Count 326 (140-440) K/uL Neut % (Auto) 60.9 (42.0-72.0) % Lymph % (Auto) 29.6 (20-44) % Dickens % (Auto) 8.1 (0.0-11.0) % Eos % (Auto) 0.9 (0.0-7.0) % Baso % (Auto) 0.3 (0.0-3.0) % Neut # (Auto) 7.70 H (1.7-7.0) K/uL Lymph # (Auto) 3.80 H (0.90-2.90) K/uL Dickens # (Auto) 1.00 H (0.00-0.90) K/UL Eos # (Auto) 0.10 (0.00-0.50) K/uL Baso # (Auto) 0.00 (0.00-0.30) K/uL Abs Immat Gran (auto) 0.00 (0.00-0.30) K/uL Imm/Tot Granulo (auto) 0.2 % Sodium 138 (135-149) mmol/L Potassium 4.1 (3.6-5.1) mmol/L Chloride 102 (96-114) mmol/L Carbon Dioxide 28 (20-32) mmol/L Anion Gap 8 (7-15) mEq/L BUN 13 (5-24) mg/dL Creatinine 0.9 (0.5-1.5) mg/dL Estimated Creat Clear 111.89 Estimated GFR 115 ml/min Glucose 84 (60-115) mg/dL Calcium 9.2 (8.4-10.6) mg/dL Discharge Plan Discharge Clinical Impression: Feared condition not demonstrated Patient Disposition: Home, Self-Care Condition: Stable Additional Instructions: continue current plans. Use ggnc-neg-yppwqex medicines as needed and directed. Follow up with MD return if worsening. Follow Up/Referrals: Provider,Not a Local [Primary Care Provider, Family Practice] Stand Alone Forms: [email or web address] Info Instructions
[2025-05-06 21:44] LABS: Hematocrit* 45.4 % (37.0-53.0); Hemoglobin* 15.4 gm/dL (13.5-17.5); Immature Granulocytes Pct Auto 0.2 %; Mean Corpuscular HGB Conc 34 gm/dL (32-36); Mean Corpuscular Hemoglobin 31 pg (26-34); Mean Corpuscular Volume 90 fL (80-100); RDW Coefficient of Variation % 13.2 % (11.5-15.5); Red Blood Count* 5.04 m/uL (4.30-5.90); White Blood Count* 12.69 K/uL (4.50-11.00)
[2025-05-06 21:49] LABS: Chloride* 102 mmol/L (96-114); Potassium* 4.1 mmol/L (3.6-5.1); Sodium* 138 mmol/L (135-149)
[2025-05-06 21:52] LABS: Anion Gap 8 mEq/L (7-15); Blood Urea Nitrogen* 13 mg/dL (5-24); Calcium* 9.2 mg/dL (8.4-10.6); Carbon Dioxide* 28 mmol/L (20-32); Creatinine* 0.9 mg/dL (0.5-1.5); Est. Creatinine Clearance* 111.89; Estimated Glomerular Filt Rate 115 ml/min; Glucose* 84 mg/dL (60-115)
[2025-05-06 22:04] LABS: Immature Granulocytes Abs Auto 0.00 K/uL (0.00-0.30); Lymphocytes Absolute Auto 3.80 K/uL (0.90-2.90); Slide Review Reflex No
[2025-05-06] MEDS: IBUPROFEN 200 MG TABLET 600 MG PO (22:34)
== END 2025-05-06 22:40 | disposition home or self-care (01) ==
PROVIDERS: Emergency Provider Emergency Medicine Emergency Medical Services
DX: Z71.1 Person with feared health complaint in whom no diagnosis is made (principal)
CPT/HCPCS: 36415; 80048; 85025; 99283; 99284; A9270